=== PATIENT | male | born 1960 | race African-American/Black ===

== ENCOUNTER 2023-08-02 14:42 | Emergency (ER) | payer MEDICAID, OTHER ==
[~2023-08-02] VITALS: Ht 188 cm; Wt 120.6 kg
[2023-08-02 15:20] VITALS: O2SAT 100
[2023-08-02] MEDS: cloNIDine HCL 0.1 MG TAB PO ONE (15:45)
[2023-08-02] MEDS: HYDROcodone-ACET 5/325MG TAB PO ONE (19:53)
[2023-08-02 20:26] LABS: Basophils # (auto) 0 10 ^3/uL (0-0.2); Basophils % (auto) 0.3 % (0.0-2.0); Eosinophils # (auto) 0.2 10 ^3/uL (0-0.8); Eosinophils % (auto) 1.9 % (0.0-7.0); Hematocrit 44.5 % (41.0-53.0); Hemoglobin 14.6 g/dL (13.5-17.5); Lymphocytes # (auto) 2.4 10 ^3/uL (0.4-5.4); Lymphocytes % (auto) 22.1 % (10.0-50.0); Mean Corpuscular Hemoglobin 29.9 pg (28.0-32.0); Mean Corpuscular Hgb Conc. 32.9 g/dL (32.0-36.0); Monocytes # (auto) 0.7 10 ^3/uL (0-1.3); Monocytes % (auto) 6.3 % (0.0-12.0); Neutrophils # (auto) 7.6 10 ^3/uL (1.6-8.6); Neutrophils % (auto) 69.4 % (37.0-80.0); Red Blood Cells 4.89 10^6/uL (4.5-5.90); Red Cell Distribution Width 13.8 % (11.8-14.3)
[2023-08-02 20:44] LABS: Alanine Aminotransferase 12 U/L (7-40); Albumin 4.3 g/dL (3.2-4.8); Alkaline Phosphatase 90 U/L (46-116); Anion Gap 8 (5-15); Aspartate Aminotransferase 10 U/L (13-40); BUN/Creatinine Ratio 9.8 (10.0-20.0); Bilirubin, Total 0.5 mg/dL (0.2-1.0); Blood Urea Nitrogen 9 mg/dL (9-23); Calcium 9.8 mg/dL (8.7-10.4); Carbon Dioxide 23 mmol/L (20-30); Chloride 108 mmol/L (98-107); Glucose 110 mg/dL (74-106); Potassium 3.1 mmol/L (3.5-5.1); Sodium 139 mmol/L (136-145); Total Protein 7.4 g/dL (5.7-8.2)
[2023-08-02] MEDS: MORPHINE SULFATE INJ 2 MG/ml SYRG IM ONE (21:11)
[2023-08-03] MEDS ORDERED: HYDR-4902 PO (00:24)
[2023-08-03] MEDS: POTASSIUM CHL 20 Meq TABLET PO ONE (00:46)
[2023-08-03 00:52] VITALS: BP 132/78; PULSE 89; RESP 22
[2023-08-03] MEDS: HYDROcodone-ACET 5/325MG TAB PO ONE (00:55)
== END 2023-08-03 01:00 | disposition home or self-care (01) ==
LOC: ER 14:42
DX: R07.9 Chest pain, unspecified (principal); M17.11 Unilateral primary osteoarthritis, right knee; G89.29 Other chronic pain; M54.50 Low back pain, unspecified; I10 Essential (primary) hypertension
CPT/HCPCS: 29505; 36415; 71045; 72100; 73562; 80053; 83880; 84484; 85025; 93005; 96372; 99285; J2270

== ENCOUNTER 2023-08-11 08:32 | Emergency (ER) | payer MEDICAID ==
[~2023-08-11] VITALS: Ht 185.4 cm; Wt 119.6 kg
[~2023-08-11 08:32] MED LIST: HYDR-4902 PO
[2023-08-11 09:31] VITALS: BP 161/97; PULSE 64; RESP 16; TEMP 98.2; O2SAT 99
[2023-08-11] MEDS ORDERED: DICL1GEL59 EX (10:01)
[2023-08-11] MEDS ORDERED: TRAM50TA2 PO (10:01)
[2023-08-11] MEDS ORDERED: ACET500T58 PO (10:01)
== END 2023-08-11 10:11 | disposition home or self-care (01) ==
LOC: ER 08:32
DX: M17.11 Unilateral primary osteoarthritis, right knee (principal)

== ENCOUNTER 2023-08-17 07:47 | Emergency (ER) | payer MEDICAID ==
[~2023-08-17] VITALS: Ht 188 cm; Wt 118.8 kg
[~2023-08-17 07:47] MED LIST changes: +ACET500T58 PO; +DICL1GEL59 EX; +TRAM50TA2 PO
[2023-08-17 08:25] VITALS: TEMP 97.6
[2023-08-17] MEDS: HYDROcodone-ACET 5/325MG TAB PO ONE (08:34)
[2023-08-17] MEDS: cloNIDine HCL 0.1 MG TAB PO ONE (08:35)
[2023-08-17 10:12] VITALS: BP 156/89; PULSE 64; RESP 16; O2SAT 100
[2023-08-17] MEDS ORDERED: LISI-706 PO (10:23)
[2023-08-17] MEDS ORDERED: IBUP-1454 PO (10:23)
== END 2023-08-17 10:31 | disposition home or self-care (01) ==
LOC: ER 07:47
DX: M17.11 Unilateral primary osteoarthritis, right knee (principal); I10 Essential (primary) hypertension; G89.29 Other chronic pain; M54.9 Dorsalgia, unspecified; Z79.899 Other long term (current) drug therapy
CPT/HCPCS: 99283; J7040

== ENCOUNTER 2023-08-28 07:54 | Inpatient (IN) | payer MEDICAID ==
[~2023-08-28] VITALS: Ht 187.1 cm; Wt 119.1 kg
[~2023-08-28 07:54] MED LIST changes: +IBUP-1454 PO; +LISI-706 PO
[2023-08-28] MEDS: ASPirin 325 MG TAB PO ONE (08:33)
[2023-08-28] MEDS: NITROGLYCERIN 0.4 MG SL TAB SL ONE (08:36)
[2023-08-28 08:41] LABS: Basophils # (auto) 0 10 ^3/uL (0-0.2); Basophils % (auto) 0.5 % (0.0-2.0); Eosinophils # (auto) 0.1 10 ^3/uL (0-0.8); Eosinophils % (auto) 1.5 % (0.0-7.0); Hematocrit 46.7 % (41.0-53.0); Hemoglobin 15.6 g/dL (13.5-17.5); Lymphocytes # (auto) 2.1 10 ^3/uL (0.4-5.4); Lymphocytes % (auto) 21.7 % (10.0-50.0); Mean Corpuscular Hemoglobin 30.1 pg (28.0-32.0); Mean Corpuscular Hgb Conc. 33.4 g/dL (32.0-36.0); Mean Corpuscular Volume 90.3 fL (80.0-100.0); Monocytes # (auto) 0.5 10 ^3/uL (0-1.3); Monocytes % (auto) 5.3 % (0.0-12.0); Neutrophils # (auto) 6.8 10 ^3/uL (1.6-8.6); Red Blood Cells 5.17 10^6/uL (4.5-5.90); White Blood Cell 9.6 10^3/uL (4.4-10.8)
[2023-08-28 08:56] LABS: Alanine Aminotransferase 15 U/L (7-40); Albumin 4.9 g/dL (3.2-4.8); Alkaline Phosphatase 93 U/L (46-116); Anion Gap 8 (5-15); Aspartate Aminotransferase 13 U/L (13-40); BUN/Creatinine Ratio 11.1 (10.0-20.0); Blood Urea Nitrogen 12 mg/dL (9-23); Calcium 10.4 mg/dL (8.5-10.1); Carbon Dioxide 28 mmol/L (20-30); Chloride 105 mmol/L (98-107); Glucose 113 mg/dL (74-106); Potassium 3.4 mmol/L (3.5-5.1); Sodium 141 mmol/L (136-145)
[2023-08-28 08:57] LABS: Bilirubin, Total 0.6 mg/dL (0.2-1.0); Total Protein 8.2 g/dL (5.7-8.2)
[2023-08-28] MEDS ORDERED: ONDANSETRON HCL 4 MG/2 ML VIAL IV PRN (09:45)
[2023-08-28] MEDS ORDERED: NITROGLYCERIN 0.4 MG SL TAB SL PRN (09:45)
[2023-08-28] MEDS ORDERED: ACETAMINOPHEN 325 MG TAB PO PRN (09:45)
[2023-08-28] MEDS ORDERED: CLOP75TA70 PO (09:46)
[2023-08-28] MEDS ORDERED: ATEN25TA PO (09:46)
[2023-08-28] MEDS ORDERED: LISI10TA34 PO (09:46)
[2023-08-28 09:47] VITALS: PULSE 72; RESP 18; O2SAT 99
[2023-08-28] MEDS: DOCUSATE SOD 100 MG CAP PO SCH (09:50)
[2023-08-28] MEDS: ASPirin 81 mg TAB PO SCH (09:51)
[2023-08-28] MEDS: METOPROLOL TARTRATE 25 MG TAB PO SCH ×2 (09:51→22:00)
[2023-08-28 10:05] LABS: INR 1.03 (0.9-1.15); Prothrombin Time 10.9 sec (9.3-11.8)
[2023-08-28] MEDS: HYDROcodone-ACET 5/325MG TAB PO PRN ×2 (10:43→18:15)
[2023-08-28] MEDS ORDERED: HYDROcodone-ACET 5/325MG TAB PO SCH (14:00)
[2023-08-28] MEDS: MORPHINE SULFATE INJ 2 MG/ml SYRG IV PRN (14:44)
[2023-08-28] MEDS: POTASSIUM EFFERVESENT TAB 25 MEQ PO ONE (15:40)
[2023-08-28 17:00] VITALS: PULSE 69; RESP 16; O2SAT 97
[2023-08-28] MEDS ORDERED: KETOROLAC TROMETH 30 MG/ML 1ML VIAL IV PRN (17:45)
[2023-08-28] MEDS: LORATADINE 10 MG TAB PO SCH (18:04)
[2023-08-28] MEDS ORDERED: ENOXAPARIN SOD 120 MG/0.8 ML SYRINGE SC SCH (22:00)
[2023-08-28] MEDS: ATORVASTATIN 20 MG TAB PO SCH (22:00)
[2023-08-28] MEDS: MELATONIN 5 MG TAB PO PRN (23:31)
[2023-08-28] MEDS: MORPHINE SULFATE 4 MG/ML SYR/VIAL IV PRN (23:32)
[2023-08-29] VITALS (7 sets, daily range): BP systolic 138–154; BP diastolic 85–91; PULSE 62–77; RESP 16–20; TEMP 97.3–98.1; O2SAT 98–100
[2023-08-29] MEDS: IOHEXOL 350 MG/ML 100ML IJ ONE (03:31)
[2023-08-29 05:44] LABS: Basophils # (auto) 0.1 10 ^3/uL (0-0.2); Basophils % (auto) 0.6 % (0.0-2.0); Eosinophils # (auto) 0.3 10 ^3/uL (0-0.8); Hematocrit 43.5 % (41.0-53.0); Hemoglobin 14.6 g/dL (13.5-17.5); Lymphocytes # (auto) 2.7 10 ^3/uL (0.4-5.4); Mean Corpuscular Hemoglobin 29.9 pg (28.0-32.0); Mean Corpuscular Hgb Conc. 33.5 g/dL (32.0-36.0); Mean Corpuscular Volume 89.4 fL (80.0-100.0); Monocytes # (auto) 0.7 10 ^3/uL (0-1.3); Monocytes % (auto) 7.9 % (0.0-12.0); Neutrophils # (auto) 5.3 10 ^3/uL (1.6-8.6); Neutrophils % (auto) 58.5 % (37.0-80.0); Nucleated Red Blood Cells % 0.1 %; Red Blood Cells 4.87 10^6/uL (4.5-5.90); Red Cell Distribution Width 13.3 % (11.8-14.3)
[2023-08-29] MEDS: hydrALAZINE HCL 20 MG/ML VL IV PRN (05:51)
[2023-08-29 06:11] LABS: Alanine Aminotransferase 11 U/L (7-40); Alkaline Phosphatase 82 U/L (46-116); Anion Gap 6 (5-15); Aspartate Aminotransferase 11 U/L (13-40); BUN/Creatinine Ratio 12.4 (10.0-20.0); Blood Urea Nitrogen 13 mg/dL (9-23); Calcium 10.2 mg/dL (8.5-10.1); Carbon Dioxide 28 mmol/L (20-30); Chloride 106 mmol/L (98-107); Glucose 99 mg/dL (74-106); LDL Cholesterol 100 mg/dL (< 100); Potassium 3.8 mmol/L (3.5-5.1); Sodium 140 mmol/L (136-145); Triglycerides 102 mg/dL (< 150)
[2023-08-29 06:12] LABS: Albumin 4.3 g/dL (3.2-4.8); Bilirubin, Total 0.5 mg/dL (0.2-1.0); Cholesterol 146 mg/dL (< 200); HDL Cholesterol 29 mg/dL (40-59); Total Protein 7.2 g/dL (5.7-8.2)
[2023-08-29] MEDS ORDERED: IOHEXOL 350 MG/ML 100ML IJ ONE (08:54)
[2023-08-29] MEDS: LISINOPRIL 5 MG TAB PO SCH (10:14)
[2023-08-29] MEDS: CLOPIDOGREL BISULFATE 75 MG TAB PO SCH (10:14)
[2023-08-29] MEDS: ENOXAPARIN SOD 40 MG/0.4 ML SYRINGE SC SCH (10:16)
[2023-08-29] MEDS: MELATONIN 5 MG TAB PO PRN (21:47)
[2023-08-30] VITALS (15 sets, daily range): BP systolic 130–171; BP diastolic 76–107; PULSE 55–85; RESP 11–20; TEMP 97.3–98.8; O2SAT 95–100
[2023-08-30 07:12] LABS: Basophils # (auto) 0.1 10 ^3/uL (0-0.2); Basophils % (auto) 0.7 % (0.0-2.0); Eosinophils # (auto) 0.2 10 ^3/uL (0-0.8); Eosinophils % (auto) 2.9 % (0.0-7.0); Hematocrit 44.6 % (41.0-53.0); Hemoglobin 14.8 g/dL (13.5-17.5); Lymphocytes # (auto) 1.9 10 ^3/uL (0.4-5.4); Lymphocytes % (auto) 23.6 % (10.0-50.0); Mean Corpuscular Hemoglobin 29.8 pg (28.0-32.0); Mean Corpuscular Hgb Conc. 33.2 g/dL (32.0-36.0); Mean Corpuscular Volume 89.9 fL (80.0-100.0); Monocytes # (auto) 0.6 10 ^3/uL (0-1.3); Monocytes % (auto) 7.4 % (0.0-12.0); Neutrophils # (auto) 5.4 10 ^3/uL (1.6-8.6); Neutrophils % (auto) 65.4 % (37.0-80.0); Nucleated Red Blood Cells % 0.1 %; Red Blood Cells 4.96 10^6/uL (4.5-5.90); Red Cell Distribution Width 13.1 % (11.8-14.3); White Blood Cell 8.2 10^3/uL (4.4-10.8)
[2023-08-30 07:28] LABS: Chloride 107 mmol/L (98-107); Potassium 3.9 mmol/L (3.5-5.1); Sodium 139 mmol/L (136-145)
[2023-08-30 07:29] LABS: Anion Gap 5 (5-15); Calcium 9.7 mg/dL (8.7-10.4); Carbon Dioxide 27 mmol/L (20-30); INR 1.04 (0.9-1.15); Partial Thromboplastin Time 25.8 SEC (24.5-34.5)
[2023-08-30 07:34] LABS: BUN/Creatinine Ratio 10.5 (10.0-20.0); Blood Urea Nitrogen 10 mg/dL (9-23); Glucose 107 mg/dL (74-106)
[2023-08-30] MEDS: MORPHINE SULFATE 4 MG/ML SYR/VIAL IV PRN (09:02)
[2023-08-30] MEDS ORDERED: SIMV40TA18 PO (13:24)
[2023-08-30] MEDS ORDERED: NABU-72 PO (13:24)
[2023-08-30] MEDS ORDERED: HYDR-4902 PO (13:24)
[2023-08-30] MEDS: IODIXANOL 320MG/ML 100ML BTL IV ONE (13:59)
[2023-08-30] MEDS: LIDOCAINE 2%HCL (LOCAL ANESTH.) INJ 20ML MDV ONE (13:59)
[2023-08-30] MEDS: ANGIOMAX 250 MG VIAL IV ONE (14:11)
[2023-08-30] MEDS: VERAPAMIL 2.5MG/ML INJ 2ML VIAL IV ONE (14:11)
[2023-08-30] MEDS: fentaNYL CITRATE 100 MCG/2 ML VL ONE (14:11)
[2023-08-30] MEDS: HEPARIN SODIUM (PORCINE) 5000 UNITS/ML 1ML VIAL ONE (14:11)
[2023-08-30] MEDS: MIDAZOLAM HCL 2MG/2ML 2ml VIAL (1mg/ml) ONE (14:12)
[2023-08-30] MEDS: SODIUM CHL 0.9% 0 ML ONE (14:12)
[2023-08-31] VITALS (8 sets, daily range): BP systolic 111–179; BP diastolic 60–94; PULSE 61–70; RESP 14–18; TEMP 36.8; O2SAT 95–99
[2023-08-31] MEDS ORDERED: ASPI-325 PO (11:04)
[2023-08-31] MEDS ORDERED: MET25T PO (11:04)
[2023-08-31] MEDS ORDERED: HYDR-4902 PO (11:40)
[2023-08-31] MEDS ORDERED: FLUT1SPR5 (11:40)
[2023-08-31] MEDS: amLODIPine BESYLATE 5 MG TAB PO ONE (15:34)
[2023-08-31] MEDS: CARVEDILOL 12.5 MG TAB PO SCH (21:22)
[2023-09-01 01:00] VITALS: BP 119/70; PULSE 69; RESP 17; TEMP 98.3; O2SAT 98
[2023-09-01 05:00] VITALS: BP 116/89; PULSE 77; RESP 18; TEMP 98.1; O2SAT 95
[2023-09-01 08:30] VITALS: PULSE 72; O2SAT 95
[2023-09-01 09:00] VITALS: BP_SYST 164; BP_SYST 165; BP_DIAS 99; PULSE 67; PULSE 76; RESP 16; RESP 18; TEMP 98.3; O2SAT 96
[2023-09-01] MEDS ORDERED: AML5T PO (10:33)
[2023-09-01] MEDS ORDERED: CARV-216 PO (10:44)
[2023-09-01] MEDS: amLODIPine BESYLATE 5 MG TAB PO ONE (10:54)
== END 2023-09-01 12:00 | disposition home or self-care (01) | DRG 192 ==
LOC: ER 07:54 → TELE 12:28 → TELE-EAST 08-29 06:28
PROVIDERS: ADMIT Nurse Practitioner Family; ATTEND Internal Medicine
PROC: 4A023N7 Measurement of Cardiac Sampling and Pressure, Left Heart, Percutaneous Approach (ICD-10-PCS; principal; 2023-08-30)
PROC: B211YZZ Fluoroscopy of Multiple Coronary Arteries using Other Contrast (ICD-10-PCS; 2023-08-30)
DX: T82.855A Stenosis of coronary artery stent, initial encounter (principal); E66.9 Obesity, unspecified; I16.0 Hypertensive urgency; E87.6 Hypokalemia; E78.5 Hyperlipidemia, unspecified; Y83.1 Surgical operation with implant of artificial internal device as the cause of abnormal reaction of the patient, or of later complication, without mention of misadventure at the time of the procedure; G89.29 Other chronic pain; I20.89 Other forms of angina pectoris; I25.2 Old myocardial infarction; Z95.5 Presence of coronary angioplasty implant and graft; Z68.34 Body mass index [BMI] 34.0-34.9, adult
CPT/HCPCS: 36415; 70450; 71045; 71275; 80048; 80053; 80061; 83735; 84100; 84484; 85025; 85379; 85610; 85730; 93005; 93306; 93458; 96372; 96374; 99152; G0378; J2250; Q9967

== ENCOUNTER 2023-09-10 09:39 | Emergency (ER) | payer MEDICAID ==
[~2023-09-10] VITALS: Ht 188 cm; Wt 113.6 kg
[~2023-09-10 09:39] MED LIST changes: +AML5T PO; +ASPI-325 PO; +ATEN25TA PO; +CARV-216 PO; +CLOP75TA70 PO; +FLUT1SPR5; +NABU-72 PO; +SIMV40TA18 PO
[2023-09-10 10:14] LABS: Basophils # (auto) 0 10 ^3/uL (0-0.2); Basophils % (auto) 0.4 % (0.0-2.0); Eosinophils # (auto) 0.1 10 ^3/uL (0-0.8); Eosinophils % (auto) 0.7 % (0.0-7.0); Hematocrit 46.3 % (41.0-53.0); Hemoglobin 15.5 g/dL (13.5-17.5); Lymphocytes # (auto) 1.9 10 ^3/uL (0.4-5.4); Lymphocytes % (auto) 18.2 % (10.0-50.0); Mean Corpuscular Hemoglobin 30.2 pg (28.0-32.0); Mean Corpuscular Hgb Conc. 33.5 g/dL (32.0-36.0); Monocytes # (auto) 0.6 10 ^3/uL (0-1.3); Monocytes % (auto) 6.1 % (0.0-12.0); Neutrophils # (auto) 7.9 10 ^3/uL (1.6-8.6); Neutrophils % (auto) 74.6 % (37.0-80.0); Nucleated Red Blood Cells % 0.1 %; Red Blood Cells 5.14 10^6/uL (4.5-5.90); White Blood Cell 10.6 10^3/uL (4.4-10.8)
[2023-09-10 10:18] LABS: INR 1.06 (0.9-1.15); Partial Thromboplastin Time 27.1 SEC (24.5-34.5); Prothrombin Time 11.2 sec (9.3-11.8)
[2023-09-10 10:23] LABS: Alanine Aminotransferase 12 U/L (7-40); Albumin 4.9 g/dL (3.2-4.8); Alkaline Phosphatase 103 U/L (46-116); Anion Gap 6 (5-15); Aspartate Aminotransferase 10 U/L (13-40); BUN/Creatinine Ratio 9.4 (10.0-20.0); Bilirubin, Total 0.6 mg/dL (0.2-1.0); Blood Urea Nitrogen 10 mg/dL (9-23); Calcium 10.5 mg/dL (8.5-10.1); Carbon Dioxide 28 mmol/L (20-30); Chloride 104 mmol/L (98-107); Glucose 128 mg/dL (74-106); Magnesium 1.8 mg/dL (1.6-2.6); Sodium 138 mmol/L (136-145); Total Protein 8.2 g/dL (5.7-8.2)
[2023-09-10 11:11] VITALS: BP 107/77; PULSE 73; RESP 17; TEMP 98.7; O2SAT 96
[2023-09-10] MEDS: HYDROcodone-ACET 10/325MG TAB PO ONE (11:53)
== END 2023-09-10 12:05 | disposition home or self-care (01) ==
LOC: ER 09:39
DX: R07.89 Other chest pain (principal); G89.4 Chronic pain syndrome; I10 Essential (primary) hypertension; E78.5 Hyperlipidemia, unspecified; I25.2 Old myocardial infarction; Z98.890 Other specified postprocedural states; Z79.899 Other long term (current) drug therapy
CPT/HCPCS: 36415; 71045; 80053; 83735; 83880; 84484; 85025; 85610; 85730; 93005

== ENCOUNTER 2023-09-13 06:44 | Inpatient (IN) | payer MEDICAID ==
[~2023-09-13] VITALS: Ht 188 cm; Wt 109.5 kg
[2023-09-13 07:08] LABS: Basophils # (auto) 0 10 ^3/uL (0-0.2); Basophils % (auto) 0.4 % (0.0-2.0); Eosinophils # (auto) 0.2 10 ^3/uL (0-0.8); Eosinophils % (auto) 1.7 % (0.0-7.0); Hematocrit 44.8 % (41.0-53.0); Hemoglobin 15.3 g/dL (13.5-17.5); Lymphocytes # (auto) 2.1 10 ^3/uL (0.4-5.4); Lymphocytes % (auto) 22.7 % (10.0-50.0); Mean Corpuscular Hemoglobin 30.8 pg (28.0-32.0); Mean Corpuscular Hgb Conc. 34.2 g/dL (32.0-36.0); Mean Corpuscular Volume 90.3 fL (80.0-100.0); Monocytes # (auto) 0.7 10 ^3/uL (0-1.3); Monocytes % (auto) 7.4 % (0.0-12.0); Neutrophils # (auto) 6.2 10 ^3/uL (1.6-8.6); Neutrophils % (auto) 67.8 % (37.0-80.0); Red Blood Cells 4.96 10^6/uL (4.5-5.90); Red Cell Distribution Width 13.4 % (11.8-14.3); White Blood Cell 9.1 10^3/uL (4.4-10.8)
[2023-09-13 07:21] LABS: Alanine Aminotransferase < 9 U/L (7-40); Albumin 4.8 g/dL (3.2-4.8); Alkaline Phosphatase 93 U/L (46-116); Anion Gap 7 (5-15); Aspartate Aminotransferase < 8 U/L (13-40); BUN/Creatinine Ratio 8.3 (10.0-20.0); Bilirubin, Total 0.6 mg/dL (0.2-1.0); Blood Urea Nitrogen 9 mg/dL (9-23); Calcium 10.7 mg/dL (8.7-10.4); Carbon Dioxide 25 mmol/L (20-30); Chloride 105 mmol/L (98-107); Glucose 118 mg/dL (74-106); Magnesium 1.9 mg/dL (1.6-2.6); Potassium 3.6 mmol/L (3.5-5.1); Sodium 137 mmol/L (136-145); Total Protein 8.2 g/dL (5.7-8.2)
[2023-09-13] MEDS: ASPirin 81 mg TAB PO ONE (07:33)
[2023-09-13] MEDS: NITROGLYCERIN 0.4 MG SL TAB SL ONE (07:33)
[2023-09-13 09:09] VITALS: PULSE 67; RESP 16; O2SAT 97
[2023-09-13] MEDS: HYDROcodone-ACET 5/325MG TAB PO ONE ×2 (09:38→14:15)
[2023-09-13] MEDS: ONDANSETRON HCL 4 MG/2 ML VIAL IV ONE (09:38)
[2023-09-13] MEDS ORDERED: NITROGLYCERIN 0.4 MG SL TAB SL PRN (11:00)
[2023-09-13] MEDS ORDERED: MORPHINE SULFATE INJ 2 MG/ml SYRG IV PRN (11:00)
[2023-09-13] MEDS ORDERED: ACETAMINOPHEN 325 MG TAB PO PRN (11:00)
[2023-09-13] MEDS: MAGNESIUM SULFATE 1GM/100ML 100 ML IV ONE (11:38)
[2023-09-13] MEDS: CLOPIDOGREL BISULFATE 75 MG TAB PO ONE (11:39)
[2023-09-13] MEDS: COLCHICINE 0.6 MG CAP PO ONE (11:40)
[2023-09-13] MEDS: MORPHINE SULFATE INJ 2 MG/ml SYRG IV PRN (11:40)
[2023-09-13 11:47] LABS: Erythrocyte Sedimentation Rate 14 mm/hr (0-20)
[2023-09-13 12:12] LABS: Urine Bacteria None Seen /hpf (None Seen); Urine WBC None Seen /hpf (0 - 3)
[2023-09-13 12:17] LABS: Urine Blood TRACE /uL (Negative); Urine Clarity Clear (Clear); Urine Color Light-Yellow (Yellow); Urine Protein, UAD Negative (Negative); Urine Specific Gravity 1.015 (1.001-1.035); Urine Urobilinogen Normal (Negative); Urine pH 5.5 (5.0-9.0)
[2023-09-13 12:34] LABS: Amphetamine Screen, Urine Neg (NEGATIVE); Barbiturate Scree,Urine Neg (NEGATIVE); Benzodiazephine Screen, Urine Neg (NEGATIVE); Cannabinoid Screen, Urine Neg (NEGATIVE); Cocaine Screen, Urine Neg (NEGATIVE); Opiate Scree,Urine Pos (NEGATIVE); Phencyclidine Screen, Urine Neg (NEGATIVE)
[2023-09-13] MEDS: hydrALAZINE HCL 20 MG/ML VL IV PRN (17:46)
[2023-09-13 18:13] VITALS: BP 125/77; PULSE 62; RESP 18; TEMP 97.9; O2SAT 90
[2023-09-13 20:00] VITALS: PULSE 74; RESP 18; O2SAT 98
[2023-09-13 21:00] VITALS: BP 130/80; PULSE 74; RESP 18; TEMP 98; O2SAT 98
[2023-09-13] MEDS: ATORVASTATIN 20 MG TAB PO SCH (21:57)
[2023-09-13] MEDS: CARVEDILOL 12.5 MG TAB PO SCH (21:58)
[2023-09-13] MEDS: COLCHICINE 0.6 MG CAP PO SCH (22:00)
[2023-09-13] MEDS: HYDROcodone-ACET 7.5/325MG TAB PO ONE (23:18)
[2023-09-14] VITALS (8 sets, daily range): BP systolic 113–156; BP diastolic 61–94; PULSE 58–68; RESP 17–20; TEMP 97.8–98.4; O2SAT 94–100
[2023-09-14 06:40] LABS: Basophils # (auto) 0 10 ^3/uL (0-0.2); Basophils % (auto) 0.4 % (0.0-2.0); Eosinophils # (auto) 0.2 10 ^3/uL (0-0.8); Eosinophils % (auto) 2.3 % (0.0-7.0); Hemoglobin 14.8 g/dL (13.5-17.5); Lymphocytes # (auto) 2.5 10 ^3/uL (0.4-5.4); Lymphocytes % (auto) 25.5 % (10.0-50.0); Mean Corpuscular Hemoglobin 30.2 pg (28.0-32.0); Mean Corpuscular Hgb Conc. 33.5 g/dL (32.0-36.0); Monocytes # (auto) 0.8 10 ^3/uL (0-1.3); Monocytes % (auto) 8.3 % (0.0-12.0); Neutrophils # (auto) 6.3 10 ^3/uL (1.6-8.6); Neutrophils % (auto) 63.5 % (37.0-80.0); Red Blood Cells 4.89 10^6/uL (4.5-5.90); White Blood Cell 9.9 10^3/uL (4.4-10.8)
[2023-09-14 06:48] LABS: Anion Gap 7 (5-15); Carbon Dioxide 24 mmol/L (20-30); Chloride 107 mmol/L (98-107); Potassium 3.8 mmol/L (3.5-5.1); Sodium 138 mmol/L (136-145)
[2023-09-14 06:49] LABS: Calcium 10.3 mg/dL (8.7-10.4)
[2023-09-14 06:54] LABS: BUN/Creatinine Ratio 13.2 (10.0-20.0); Blood Urea Nitrogen 12 mg/dL (9-23); Glucose 107 mg/dL (74-106)
[2023-09-14 06:55] LABS: Magnesium 2.2 mg/dL (1.6-2.6)
[2023-09-14] MEDS ORDERED: HYDR-4902 PO (08:22)
[2023-09-14] MEDS: ENOXAPARIN SOD 40 MG/0.4 ML SYRINGE SC SCH (08:58)
[2023-09-14] MEDS: CLOPIDOGREL BISULFATE 75 MG TAB PO SCH (08:59)
[2023-09-14] MEDS: ASPirin-EC 81 mg tab PO SCH (08:59)
[2023-09-14] MEDS: amLODIPine BESYLATE 5 MG TAB PO SCH (09:01)
[2023-09-14] MEDS: HYDROcodone-ACET 5/325MG TAB PO PRN (12:45)
[2023-09-14] MEDS: ONDANSETRON HCL 4 MG/2 ML VIAL IV PRN (12:46)
[2023-09-14] MEDS: ISOSORBIDE MONONITRATE 20 MG TAB PO SCH (21:56)
[2023-09-14] MEDS: VALSARTAN 80 MG TAB PO ONE (21:56)
[2023-09-15 01:00] VITALS: BP 128/75; PULSE 66; RESP 18; TEMP 98.2; O2SAT 99
[2023-09-15 05:00] VITALS: BP 114/65; PULSE 60; RESP 18; TEMP 98.4; O2SAT 97
[2023-09-15 07:31] LABS: INR 1.03 (0.9-1.15); Partial Thromboplastin Time 25.6 SEC (24.5-34.5); Prothrombin Time 10.9 sec (9.3-11.8)
[2023-09-15 07:34] LABS: Alkaline Phosphatase 89 U/L (46-116); Anion Gap 6 (5-15); Calcium 10.3 mg/dL (8.5-10.1); Carbon Dioxide 29 mmol/L (20-30); Chloride 105 mmol/L (98-107); Glucose 114 mg/dL (74-106); Potassium 4.2 mmol/L (3.5-5.1); Sodium 140 mmol/L (136-145); Total Protein 7.5 g/dL (5.7-8.2)
[2023-09-15 07:35] LABS: BUN/Creatinine Ratio 10.9 (10.0-20.0); Blood Urea Nitrogen 11 mg/dL (9-23); LDL Cholesterol 113 mg/dL (< 100); Magnesium 2.1 mg/dL (1.6-2.6); Triglycerides 102 mg/dL (< 150)
[2023-09-15 07:36] LABS: Albumin 4.5 g/dL (3.2-4.8); Aspartate Aminotransferase 9 U/L (13-40); Cholesterol 158 mg/dL (< 200); HDL Cholesterol 27 mg/dL (40-59)
[2023-09-15 07:37] LABS: Bilirubin, Total 0.5 mg/dL (0.2-1.0); Phosphorus 4.1 mg/dL (2.4-5.1)
[2023-09-15 07:38] LABS: Alanine Aminotransferase < 9 U/L (7-40)
[2023-09-15 07:47] LABS: Basophils # (auto) 0 10 ^3/uL (0-0.2); Basophils % (auto) 0.5 % (0.0-2.0); Eosinophils # (auto) 0.2 10 ^3/uL (0-0.8); Eosinophils % (auto) 2.2 % (0.0-7.0); Hemoglobin 14.9 g/dL (13.5-17.5); Lymphocytes % (auto) 22.7 % (10.0-50.0); Mean Corpuscular Hemoglobin 30.5 pg (28.0-32.0); Mean Corpuscular Hgb Conc. 33.8 g/dL (32.0-36.0); Mean Corpuscular Volume 90.3 fL (80.0-100.0); Monocytes # (auto) 0.8 10 ^3/uL (0-1.3); Neutrophils # (auto) 5.7 10 ^3/uL (1.6-8.6); Neutrophils % (auto) 65.6 % (37.0-80.0); Nucleated Red Blood Cells % 0.2 %; Red Blood Cells 4.88 10^6/uL (4.5-5.90); Red Cell Distribution Width 13.4 % (11.8-14.3); White Blood Cell 8.7 10^3/uL (4.4-10.8)
[2023-09-15 08:00] VITALS: PULSE 58
[2023-09-15 09:00] VITALS: BP 140/74; PULSE 59; RESP 20; TEMP 97.9; O2SAT 99
[2023-09-15] MEDS: ERGOCALCIFEROL 50,000 UNIT(1.25MG) CAP PO SCH (09:40)
[2023-09-15] MEDS: VALSARTAN 80 MG TAB PO SCH (09:40)
[2023-09-15] MEDS ORDERED: ISO20T PO (10:55)
[2023-09-15] MEDS ORDERED: ERGO1CAP23 PO (10:55)
[2023-09-15] MEDS ORDERED: VALS1TAB57 PO (10:55)
[2023-09-15] MEDS ORDERED: ATOR20TA50 PO (10:55)
[2023-09-15] MEDS ORDERED: IPRATROPIUM BROM 0.5 MG/2.5ML INH SOL NEB SCH (12:00)
[2023-09-15] MEDS ORDERED: LEVALBUTEROL HCL 1.25 MG/3 ML NEB NEB SCH (12:00)
[2023-09-15 13:00] VITALS: BP_SYST 117; BP_SYST 132; BP_DIAS 86; BP_DIAS 89; PULSE 76; RESP 20; TEMP 97.8; O2SAT 98
[2023-09-15] MEDS ORDERED: ATORVASTATIN 20 MG TAB PO SCH (22:00)
== END 2023-09-15 14:16 | disposition home or self-care (01) | DRG 199 ==
LOC: ER 06:44 → TELE 11:03 → TELE-WESTW 17:26
PROVIDERS: ADMIT Internal Medicine Pulmonary Disease; ATTEND Internal Medicine Pulmonary Disease
DX: I16.0 Hypertensive urgency (principal); E66.9 Obesity, unspecified; I25.10 Atherosclerotic heart disease of native coronary artery without angina pectoris; E78.5 Hyperlipidemia, unspecified; G47.33 Obstructive sleep apnea (adult) (pediatric); G89.29 Other chronic pain; F11.10 Opioid abuse, uncomplicated; Z98.61 Coronary angioplasty status; I25.2 Old myocardial infarction; Z68.31 Body mass index [BMI] 31.0-31.9, adult; Z82.49 Family history of ischemic heart disease and other diseases of the circulatory system; Z79.899 Other long term (current) drug therapy
CPT/HCPCS: 36415; 71045; 80048; 80053; 80061; 80307; 81001; 82306; 82607; 83036; 83735; 83880; 84100; 84443; 84484; 85025; 85610; 85652; 85730; 87081; 93005; 96365; G0378; J2405

== ENCOUNTER 2023-09-29 08:10 | Inpatient (IN) | payer MEDICAID, OTHER ==
[~2023-09-29] VITALS: Ht 188 cm; Wt 115.3 kg
[~2023-09-29 08:10] MED LIST changes: -ATEN25TA PO; +ATOR20TA50 PO; -DICL1GEL59 EX; +ERGO1CAP23 PO; -IBUP-1454 PO; +ISO20T PO; -LISI-706 PO; +VALS1TAB57 PO
[2023-09-29 09:05] LABS: Basophils # (auto) 0.1 10 ^3/uL (0-0.2); Basophils % (auto) 0.5 % (0.0-2.0); Eosinophils # (auto) 0.1 10 ^3/uL (0-0.8); Eosinophils % (auto) 0.7 % (0.0-7.0); Hematocrit 43.7 % (41.0-53.0); Hemoglobin 14.4 g/dL (13.5-17.5); Lymphocytes # (auto) 1.8 10 ^3/uL (0.4-5.4); Lymphocytes % (auto) 15.4 % (10.0-50.0); Mean Corpuscular Hgb Conc. 32.9 g/dL (32.0-36.0); Mean Corpuscular Volume 91.1 fL (80.0-100.0); Monocytes # (auto) 0.6 10 ^3/uL (0-1.3); Monocytes % (auto) 5.2 % (0.0-12.0); Neutrophils # (auto) 8.9 10 ^3/uL (1.6-8.6); Neutrophils % (auto) 78.2 % (37.0-80.0); Nucleated Red Blood Cells % 0.1 %; Red Cell Distribution Width 13.4 % (11.8-14.3); White Blood Cell 11.4 10^3/uL (4.4-10.8)
[2023-09-29 09:07] VITALS: PULSE 67; RESP 12; O2SAT 97
[2023-09-29 09:29] LABS: Albumin 4.5 g/dL (3.2-4.8); Alkaline Phosphatase 82 U/L (46-116); Anion Gap 12 (5-15); Aspartate Aminotransferase < 8 U/L (13-40); BUN/Creatinine Ratio 9.3 (10.0-20.0); Bilirubin, Total 0.4 mg/dL (0.2-1.0); Blood Urea Nitrogen 10 mg/dL (9-23); Calcium 10.1 mg/dL (8.7-10.4); Carbon Dioxide 23 mmol/L (20-30); Chloride 107 mmol/L (98-107); Glucose 140 mg/dL (74-106); Potassium 3.1 mmol/L (3.5-5.1); Sodium 142 mmol/L (136-145); Total Protein 7.7 g/dL (5.7-8.2)
[2023-09-29 09:33] LABS: Alanine Aminotransferase < 9 U/L (7-40)
[2023-09-29] MEDS: ONDANSETRON HCL 4 MG/2 ML VIAL IV ONE (12:32)
[2023-09-29] MEDS: MORPHINE SULFATE INJ 2 MG/ml SYRG IV ONE (12:32)
[2023-09-29] MEDS ORDERED: ACETAMINOPHEN 325 MG TAB PO PRN (13:15)
[2023-09-29] MEDS ORDERED: ONDANSETRON HCL 4 MG/2 ML VIAL IV PRN (13:15)
[2023-09-29] MEDS ORDERED: NITROGLYCERIN 0.4 MG SL TAB SL PRN ×2 (13:15→14:00)
[2023-09-29] MEDS ORDERED: MORPHINE SULFATE 4 MG/ML SYR/VIAL IV PRN (13:15)
[2023-09-29 13:53] LABS: INR 1.05 (0.9-1.15); Prothrombin Time 11.1 sec (9.3-11.8)
[2023-09-29 13:57] LABS: Urine Bacteria FEW /hpf (None Seen); Urine Blood 1+ /uL (Negative); Urine Clarity Clear (Clear); Urine Color Light-Yellow (Yellow); Urine Mucus FEW (None Seen); Urine Protein, UAD Negative (Negative); Urine Specific Gravity 1.019 (1.001-1.035); Urine Urobilinogen Normal (Negative); Urine WBC 1 /hpf (0 - 3); Urine pH 5.5 (5.0-9.0)
[2023-09-29 16:37] LABS: Amphetamine Screen, Urine Neg (NEGATIVE); Barbiturate Scree,Urine Neg (NEGATIVE); Benzodiazephine Screen, Urine Neg (NEGATIVE); Cannabinoid Screen, Urine Neg (NEGATIVE); Cocaine Screen, Urine Neg (NEGATIVE); Opiate Scree,Urine Pos (NEGATIVE); Phencyclidine Screen, Urine Neg (NEGATIVE)
[2023-09-29] MEDS: HYDROcodone-ACET 5/325MG TAB PO PRN (17:49)
[2023-09-29 20:23] VITALS: PULSE 67; RESP 12; O2SAT 97
[2023-09-29 21:49] VITALS: BP 148/88; PULSE 50; RESP 18; TEMP 98; O2SAT 99
[2023-09-29] MEDS: CARVEDILOL 12.5 MG TAB PO SCH (22:00)
[2023-09-29] MEDS: ATORVASTATIN 20 MG TAB PO SCH (22:39)
[2023-09-29] MEDS: ISOSORBIDE MONONITRATE 20 MG TAB PO SCH (22:39)
[2023-09-29 22:41] VITALS: PULSE 50; RESP 18; O2SAT 99
[2023-09-29] MEDS: TEMAZEPAM 15 MG CAP PO ONE (23:07)
[2023-09-30] VITALS (8 sets, daily range): BP systolic 109–136; BP diastolic 56–80; PULSE 48–75; RESP 18–19; TEMP 97–98.2; O2SAT 94–98
[2023-09-30 06:58] LABS: Alkaline Phosphatase 70 U/L (46-116); Anion Gap 6 (5-15); BUN/Creatinine Ratio 11.2 (10.0-20.0); Blood Urea Nitrogen 10 mg/dL (9-23); Calcium 9.6 mg/dL (8.5-10.1); Carbon Dioxide 26 mmol/L (20-30); Chloride 108 mmol/L (98-107); Glucose 107 mg/dL (74-106); LDL Cholesterol 95 mg/dL (< 100); Potassium 3.5 mmol/L (3.5-5.1); Sodium 140 mmol/L (136-145); Triglycerides 95 mg/dL (< 150)
[2023-09-30 06:59] LABS: Albumin 3.8 g/dL (3.2-4.8); Aspartate Aminotransferase < 8 U/L (13-40); Bilirubin, Total 0.3 mg/dL (0.2-1.0); Cholesterol 130 mg/dL (< 200); HDL Cholesterol 27 mg/dL (40-59); Total Protein 6.2 g/dL (5.7-8.2)
[2023-09-30 07:02] LABS: Alanine Aminotransferase < 9 U/L (7-40)
[2023-09-30 07:07] LABS: Basophils # (auto) 0.1 10 ^3/uL (0-0.2); Basophils % (auto) 0.6 % (0.0-2.0); Eosinophils # (auto) 0.2 10 ^3/uL (0-0.8); Eosinophils % (auto) 2.3 % (0.0-7.0); Hematocrit 37.6 % (41.0-53.0); Hemoglobin 12.8 g/dL (13.5-17.5); Lymphocytes % (auto) 23.3 % (10.0-50.0); Mean Corpuscular Hemoglobin 30.9 pg (28.0-32.0); Mean Corpuscular Hgb Conc. 34.1 g/dL (32.0-36.0); Mean Corpuscular Volume 90.7 fL (80.0-100.0); Monocytes # (auto) 0.7 10 ^3/uL (0-1.3); Monocytes % (auto) 7.9 % (0.0-12.0); Neutrophils # (auto) 5.5 10 ^3/uL (1.6-8.6); Neutrophils % (auto) 65.9 % (37.0-80.0); Red Blood Cells 4.15 10^6/uL (4.5-5.90); Red Cell Distribution Width 13.3 % (11.8-14.3); White Blood Cell 8.4 10^3/uL (4.4-10.8)
[2023-09-30] MEDS: ASPirin-EC 81 mg tab PO SCH (08:39)
[2023-09-30] MEDS: CLOPIDOGREL BISULFATE 75 MG TAB PO SCH (08:40)
[2023-09-30] MEDS: DOCUSATE SOD 100 MG CAP PO SCH (08:40)
[2023-09-30] MEDS: MORPHINE SULFATE INJ 2 MG/ml SYRG IV PRN (08:55)
[2023-09-30] MEDS ORDERED: amLODIPine BESYLATE 5 MG TAB PO SCH (10:00)
[2023-09-30] MEDS: HYDROcodone-ACET 5/325MG TAB PO PRN (13:42)
[2023-09-30] MEDS: RANOLAZINE ER 500 MG TAB PO SCH (21:16)
[2023-10-01 05:00] VITALS: BP 166/101; PULSE 62; RESP 18; TEMP 97.7; O2SAT 99
[2023-10-01] MEDS: hydrALAZINE HCL 20 MG/ML VL IV PRN (05:17)
[2023-10-01 05:47] VITALS: BP 155/90
[2023-10-01 08:00] VITALS: PULSE 68; RESP 18; O2SAT 99
[2023-10-01 09:00] VITALS: BP 143/89; PULSE 68; RESP 18; TEMP 97.5; O2SAT 99
[2023-10-01] MEDS: ACETAMINOPHEN 325 MG TAB PO PRN (09:02)
[2023-10-01] MEDS ORDERED: RANO500T3 PO (10:06)
[2023-10-01 11:01] VITALS: BP 143/89; PULSE 68; RESP 18; TEMP 97.5; O2SAT 99
== END 2023-10-01 11:47 | disposition home or self-care (01) | DRG 861 ==
LOC: ER 08:10 → TELE-EAST 14:02 → TELE 14:02 → TELE-EAST 21:49
PROVIDERS: ADMIT Nurse Practitioner Family; ATTEND Nurse Practitioner Acute Care
DX: Z76.5 Malingerer [conscious simulation] (principal); D72.829 Elevated white blood cell count, unspecified; R07.89 Other chest pain; I25.118 Atherosclerotic heart disease of native coronary artery with other forms of angina pectoris; E66.9 Obesity, unspecified; E78.5 Hyperlipidemia, unspecified; E87.6 Hypokalemia; G43.909 Migraine, unspecified, not intractable, without status migrainosus; G89.4 Chronic pain syndrome; I10 Essential (primary) hypertension; M47.26 Other spondylosis with radiculopathy, lumbar region; M54.30 Sciatica, unspecified side; I16.0 Hypertensive urgency; F11.10 Opioid abuse, uncomplicated; R00.1 Bradycardia, unspecified; Z79.891 Long term (current) use of opiate analgesic; Z79.899 Other long term (current) drug therapy; Z79.82 Long term (current) use of aspirin; Z95.5 Presence of coronary angioplasty implant and graft; Z82.49 Family history of ischemic heart disease and other diseases of the circulatory system; Z68.32 Body mass index [BMI] 32.0-32.9, adult
CPT/HCPCS: 36415; 70450; 71045; 80053; 80061; 80307; 81001; 83735; 84484; 85025; 85610; 87081; 93005; 96374; 96375; G0378; J2405

== ENCOUNTER 2023-11-15 07:24 | Inpatient (IN) | payer OTHER ==
[~2023-11-15] VITALS: Ht 188 cm; Wt 115.4 kg
[~2023-11-15 07:24] MED LIST changes: -HYDR-4902 PO; +RANO500T3 PO; -TRAM50TA2 PO
[2023-11-15 07:58] LABS: Basophils # (auto) 0.1 10 ^3/uL (0-0.2); Basophils % (auto) 0.6 % (0.0-2.0); Eosinophils # (auto) 0.2 10 ^3/uL (0-0.8); Hematocrit 42.2 % (41.0-53.0); Hemoglobin 14.1 g/dL (13.5-17.5); Lymphocytes % (auto) 22.3 % (10.0-50.0); Mean Corpuscular Hemoglobin 30.5 pg (28.0-32.0); Mean Corpuscular Hgb Conc. 33.3 g/dL (32.0-36.0); Mean Corpuscular Volume 91.6 fL (80.0-100.0); Monocytes # (auto) 0.7 10 ^3/uL (0-1.3); Monocytes % (auto) 7.5 % (0.0-12.0); Neutrophils % (auto) 67.6 % (37.0-80.0); Nucleated Red Blood Cells % 0.1 %; White Blood Cell 8.8 10^3/uL (4.4-10.8)
[2023-11-15 08:00] VITALS: PULSE 65; RESP 14; O2SAT 99
[2023-11-15] MEDS: MAALOX PLUS or MAALOX 30 ML PO ONE (08:10)
[2023-11-15 08:12] LABS: Alanine Aminotransferase 12 U/L (7-40); Albumin 4.2 g/dL (3.2-4.8); Alkaline Phosphatase 85 U/L (46-116); Anion Gap 6 (5-15); Aspartate Aminotransferase < 8 U/L (13-40); Bilirubin, Total 0.6 mg/dL (0.2-1.0); Blood Urea Nitrogen 13 mg/dL (9-23); Calcium 9.7 mg/dL (8.7-10.4); Carbon Dioxide 28 mmol/L (20-30); Chloride 106 mmol/L (98-107); Glucose 103 mg/dL (74-106); Magnesium 1.7 mg/dL (1.6-2.6); Potassium 3.8 mmol/L (3.5-5.1); Sodium 140 mmol/L (136-145); Total Protein 6.9 g/dL (5.7-8.2)
[2023-11-15] MEDS: FAMOTIDINE 20 MG TAB PO ONE (08:18)
[2023-11-15] MEDS: ASPirin 81 mg TAB PO ONE (08:18)
[2023-11-15 08:24] LABS: INR 1.02 (0.9-1.15); Partial Thromboplastin Time 26.6 SEC (24.5-34.5); Prothrombin Time 10.8 sec (9.3-11.8)
[2023-11-15] MEDS: KETOROLAC TROMETH 30 MG/ML 1ML VIAL IV ONE (08:29)
[2023-11-15] MEDS ORDERED: NITROGLYCERIN 0.4 MG SL TAB SL PRN (09:00)
[2023-11-15] MEDS ORDERED: ACETAMINOPHEN 325 MG TAB PO PRN (09:00)
[2023-11-15] MEDS ORDERED: ONDANSETRON HCL 4 MG/2 ML VIAL IV PRN (09:00)
[2023-11-15] MEDS ORDERED: DOCUSATE SOD 100 MG CAP PO PRN (09:00)
[2023-11-15] MEDS ORDERED: MORPHINE SULFATE INJ 2 MG/ml SYRG IV PRN (09:00)
[2023-11-15 09:11] LABS: Urine Bacteria None Seen /hpf (None Seen); Urine WBC None Seen /hpf (0 - 3)
[2023-11-15 09:36] LABS: Urine Blood 1+ /uL (Negative); Urine Clarity Clear (Clear); Urine Color Light-Yellow (Yellow); Urine Mucus FEW (None Seen); Urine Protein, UAD TRACE (Negative); Urine Specific Gravity 1.024 (1.001-1.035); Urine Urobilinogen Normal (Negative); Urine pH 5.5 (5.0-9.0)
[2023-11-15 10:26] LABS: Triglycerides 74 mg/dL (< 150)
[2023-11-15 10:26] LABS: Amphetamine Screen, Urine Neg (NEGATIVE); Barbiturate Scree,Urine Neg (NEGATIVE); Benzodiazephine Screen, Urine Neg (NEGATIVE); Cocaine Screen, Urine Neg (NEGATIVE); Opiate Scree,Urine Pos (NEGATIVE)
[2023-11-15 10:27] LABS: LDL Cholesterol 85 mg/dL (< 100)
[2023-11-15 10:27] LABS: Cannabinoid Screen, Urine Neg (NEGATIVE); Phencyclidine Screen, Urine Neg (NEGATIVE)
[2023-11-15 10:28] LABS: Cholesterol 135 mg/dL (< 200); HDL Cholesterol 39 mg/dL (40-59)
[2023-11-15] MEDS: ENOXAPARIN SOD 40 MG/0.4 ML SYRINGE SC SCH (11:22)
[2023-11-15] MEDS: HYDROcodone-ACET 5/325MG TAB PO PRN (11:22)
[2023-11-15] MEDS: SODIUM CHLOR 0.9% PF (SALINE LOCK) 10ML VIAL/SYR IV SCH (14:12)
[2023-11-15] MEDS ORDERED: hydrALAZINE HCL 20 MG/ML VL IV PRN (14:30)
[2023-11-15] MEDS: RANOLAZINE ER 500 MG TAB PO SCH (21:09)
[2023-11-15] MEDS: CARVEDILOL 3.125 MG TAB PO SCH (21:09)
[2023-11-15] MEDS: ATORVASTATIN 20 MG TAB PO SCH (21:09)
[2023-11-15 22:00] VITALS: BP 118/65; PULSE 60; RESP 20; TEMP 98.6; O2SAT 100
[2023-11-15] MEDS: TEMAZEPAM 15 MG CAP PO ONE (23:08)
[2023-11-16 04:52] VITALS: BP 123/69; PULSE 60; RESP 16; TEMP 98.4; O2SAT 96
[2023-11-16 08:00] VITALS: PULSE 88; RESP 16; O2SAT 98
[2023-11-16 08:24] VITALS: BP 145/84; PULSE 61; RESP 20; TEMP 98.2; O2SAT 99
[2023-11-16] MEDS: ASPirin 81 mg TAB PO SCH (09:02)
[2023-11-16] MEDS: CLOPIDOGREL BISULFATE 75 MG TAB PO SCH (09:03)
[2023-11-16] MEDS ORDERED: SALINE 0.65 % NASAL SPRAY 45ML BOTTLE EACHNOSTRI PRN (10:30)
[2023-11-16 13:09] VITALS: BP 168/60; PULSE 62; RESP 18; TEMP 98.4; O2SAT 97
[2023-11-16 14:52] VITALS: BP 130/52; PULSE 92; RESP 16; TEMP 98.2; O2SAT 96
[2023-11-16] MEDS ORDERED: HYDR-4902 PO (15:15)
[2023-11-16] MEDS ORDERED: ATOR20TA50 PO (15:50)
[2023-11-16] MEDS ORDERED: CARV-214 PO (15:50)
[2023-11-16] MEDS ORDERED: ASPI-325 PO (15:50)
[2023-11-16] MEDS ORDERED: CLOP75TA70 PO (15:50)
[2023-11-17] MEDS ORDERED: TRAM-626 PO (14:15)
== END 2023-11-16 15:35 | disposition home or self-care (01) | DRG 198 ==
LOC: ER 07:24 → TELE 09:00 → TELE-WESTW 20:45
PROVIDERS: ADMIT Internal Medicine Geriatric Medicine; ATTEND Internal Medicine Geriatric Medicine
DX: I25.118 Atherosclerotic heart disease of native coronary artery with other forms of angina pectoris (principal); E66.9 Obesity, unspecified; I16.0 Hypertensive urgency; E78.5 Hyperlipidemia, unspecified; G89.29 Other chronic pain; I25.2 Old myocardial infarction; Z98.61 Coronary angioplasty status; Z90.49 Acquired absence of other specified parts of digestive tract; Z82.49 Family history of ischemic heart disease and other diseases of the circulatory system; Z91.199 Patient's noncompliance with other medical treatment and regimen due to unspecified reason; Z68.32 Body mass index [BMI] 32.0-32.9, adult
CPT/HCPCS: 36415; 71045; 72100; 80053; 80061; 80307; 81001; 83735; 83880; 84443; 84484; 85025; 85610; 85730; 93005; 96372; 96374; G0378; J1885

== ENCOUNTER 2024-04-22 08:30 | Inpatient (IN) | payer MEDICAID, OTHER ==
[~2024-04-22] VITALS: Ht 188 cm; Wt 126.1 kg
[~2024-04-22 08:30] MED LIST changes: +AMLO1TAB22 PO; +CARV-214 PO; +CARV12.544 PO; +ERGO500086 PO; +FLUT50SP31 EACHNOSTRI; +MELO15TA29 PO; +TRAM-626 PO
[2024-04-22 08:58] LABS: Basophils # (auto) 0.1 10 ^3/uL (0-0.2); Basophils % (auto) 0.8 % (0.0-2.0); Eosinophils # (auto) 0.2 10 ^3/uL (0-0.8); Eosinophils % (auto) 1.9 % (0.0-7.0); Hematocrit 44.9 % (41.0-53.0); Lymphocytes # (auto) 2.1 10 ^3/uL (0.4-5.4); Mean Corpuscular Hemoglobin 30.8 pg (28.0-32.0); Mean Corpuscular Hgb Conc. 33.4 g/dL (32.0-36.0); Mean Corpuscular Volume 92.4 fL (80.0-100.0); Monocytes # (auto) 0.6 10 ^3/uL (0-1.3); Monocytes % (auto) 6.6 % (0.0-12.0); Neutrophils # (auto) 5.9 10 ^3/uL (1.6-8.6); Neutrophils % (auto) 66.7 % (37.0-80.0); Nucleated Red Blood Cells % 0.1 %; Platelet Count (auto) 274 10^3/uL (140-450); Red Blood Cells 4.85 10^6/uL (4.5-5.90); Red Cell Distribution Width 13.8 % (11.8-14.3); White Blood Cell 8.8 10^3/uL (4.4-10.8)
--- NOTE | 2024-04-22 09:01 | ED.PDOC ---
HPI Comments 63 y.o male with PMH of HTN, HLD, AK, presents to the ED for a chief complaint of substernal chest pain that started last night. Patient describes pain as a burning sensation, is constant, non radiating and presents with new onset dizziness this morning upon getting up from bed. Patient reports pain is similar to previous AK. Patient also presents with right toe swelling and pain that has been ongoing for a couple weeks and states he has not been able to see his PCP for complaint. He denies any other symptoms or pain. He denies any substance, alcohol or tobacco use. Chief Complaint: Chest Pain Time Seen by MD: 08:48 Primary Care Provider: SARAH Reviewed Notes: Nurses Notes, Medications, Allergies Allergies: Coded Allergies: No Known Drug Allergy (Verified Allergy, Unknown, 08/02/23) Home Meds Active Scripts Tramadol HCl (Tramadol HCl) 50 Mg Tab, 50 MG PO Q6HP PRN, #30 TAB Prov:TED GANDHI MD 11/17/23 Clopidogrel Bisulfate (CLOPIDOGREL) 75 Mg Tab, 75 MG PO DAILY for 30 Days, #30 TAB Prov:SHAKEEL CLARK RESIDENT 11/16/23 Carvedilol (COREG) 3.125 Mg Tab, 3.125 MG PO Q12HR for 30 Days, #60 TAB Prov:SHAKEEL CLARK RESIDENT 11/16/23 Atorvastatin Calcium (ATORVASTATIN CALCIUM) 20 Mg Tab, 40 MG PO HS for 30 Days, #60 TAB Prov:SHAKEEL CLARK RESIDENT 11/16/23 Aspirin (Aspirin Low Dose) 81 Mg Tab, 81 MG PO DAILY for 30 Days, #30 TAB Prov:SHAKEEL CLARK RESIDENT 11/16/23 Ranolazine (Ranolazine ER) 500 Mg Tab, 500 MG PO BID for 30 Days, #60 TAB Prov:ROB PAGE NP 10/01/23 Valsartan (Valsartan) 80 Mg Tab, 80 MG PO DAILY for 30 Days, #30 TAB Prov:EMERY APARICIO 09/15/23 Isosorbide Mononitrate (ISMO TABLET) 20 Mg Tb, 20 MG PO BID for 30 Days, #60 TAB Prov:EMERY APARICIO RESIDENT 09/15/23 Ergocalciferol (VITAMIN D 52246 UNIT) 50,000 [place], [address] UNIT PO Q7D for 30 Days, #10 CAP Prov:EMERY APARICIO RESIDENT 09/15/23 Atorvastatin Calcium (ATORVASTATIN CALCIUM) 20 Mg Tab, 80 MG PO HS for 30 Days, #120 TAB Prov:EMERY APARICIO RESIDENT 09/15/23 Carvedilol (COREG) 12.5 Mg Tab, 12.5 MG PO Q12HR, #60 TAB 5 Refills Prov:PHOENIX DRAKE MD 09/01/23 Amlodipine Besylate (NORVASC TABLET) 5 Mg Tb, 1 TAB PO DAILY, #30 TAB 5 Refills Prov:PHOENIX DRAKE MD 09/01/23 Fluticasone Propionate (Nasal) (Flonase Allergy Relief) 50 Mcg/Act Spr, 50 MCG NA BIDPRN PRN, #30 SPRAY Prov:PHOENIX DRAKE MD 08/31/23 Aspirin (Aspirin Low Dose) 81 Mg Tab, 81 MG PO DAILY, #30 TAB 5 Refills Prov:PHOENIX DRAKE MD 08/31/23 Acetaminophen (Acetaminophen) 500 Mg Tab, 500 MG PO QIDP for 30 Days, #120 TAB 0 Refills Prov:KAYLEE FERNANDEZ NP 08/11/23 Reported Medications Simvastatin (Simvastatin) 40 Mg Tab, 1 TAB PO DAILY 08/30/23 Nabumetone (Nabumetone) 500 Mg Tab, 1 TAB PO BID PRN 08/30/23 Clopidogrel Bisulfate (CLOPIDOGREL) 75 Mg Tab, 1 TAB PO DAILY 08/28/23 Information Source: Patient Mode of Arrival: Ambulatory Severity: Moderate Timing: Hours Duration: Since onset Location: Substernal Radiation: No Radiation Quality: Burning Onset: At Rest Cardiac Risk Factors: Hyperlipidemia, HTN PE Risk Factors: None History of: Similar pain in past Past Medical History PAST MEDICAL HISTORY: High Lipids, HTN, [place] Surgical History: PTCA Family History Family History: Reviewed,noncontributory to illness Social History Smoker: Non-Smoker Alcohol: Denies ETOH Use Drugs: Denies Drug Use Lives In: Home Constitutional: denies: chills, diaphoresis, fatigue, fever, malaise, sweats, weakness, others EENTM: denies: blurred vision, double vision, ear bleeding, ear discharge, ear drainage, ear pain, ear ringing, eye pain, eye redness, hearing loss, mouth pain, mouth swelling, nasal discharge, nose bleeding, nose congestion, nose pain, photophobia, tearing, throat pain, throat swelling, voice changes, others Respiratory: denies: cough, hemoptysis, orthopnea, SOB at rest, shortness of breath, SOB with excertion, stridor, wheezing, others Cardiovascular: reports: chest pain; denies: dizzy spells, diaphoresis, Dyspnea on exertion, edema, irregular heart beat, left arm pain, lightheadedness, palpitations, PND, syncope, others Gastrointestinal: denies: abdomen distended, abdominal pain, blood streaked bowels, constipated, diarrhea, dysphagia, difficulty swallowing, hematemesis, melena, nausea, poor appetite, poor fluid intake, rectal bleeding, rectal pain, vomiting, others Genitourinary: denies: burning, dysuria, flank pain, frequency, hematuria, incontinence, penile discharge, penile sore, pain, testicle pain, testicle swelling, urgency, others Neurological: reports: dizziness; denies: fainting, headache, left sided numbness, left sided weakness, numbness, paresthesia, pre-existing deficit, right sided numbness, right sided weakness, seizure, speech problems, tingling, tremors, weakness, others Musculoskeletal: denies: back pain, gout, joint pain, joint swelling, muscle pain, muscle stiffness, neck pain, others Integumetry: denies: bruises, change in color, change in hair/nails, dryness, laceration, lesions, lumps, rash, wounds, others Allergic/Immunocompromised: denies: Difficulty Healing, Frequent Infections, Hives, Itching, others Hematologic/Lymphatic: denies: anemia, blood clots, easy bleeding, easy bruising, swollen glands, others Endocrine: denies: excessive hunger, excessive sweating, excessive thirst, excessive urination, flushing, intolerance to cold, intolerance to heat, unexplained weight gain, unexplained weight loss, others Psychiatric: denies: anxiety, bipolar disorder, depression, hopeless, panic disorder, schizophrenia, sleepless, suicidal, others All Other Systems: Reviewed and Negative Physical Exam General Appearance: Moderate Distress HEENT: Normal ENT Inspection, Pharynx Normal, TMs Normal Neck: Full Range of Motion, Non-Tender, Normal, Normal Inspection Respiratory: Chest Non-Tender, Lungs Clear, No Accessory Muscle Use, No Respiratory Distress, Normal Breath Sounds Cardiovascular: No Edema, No JVD, No Murmur, No Gallop, Normal Peripheral Pulses, Regular Rate/Rhythm Breast Exam: Deferred Gastrointestinal: No Organomegaly, Non Tender, No Pulsatile Mass, Normal Bowel Sounds, Soft Genitalia: Deferred Pelvic: Deferred Rectal: Deferred Extremities: No calf tenderness, Normal capillary refill, Normal inspection, Normal range of motion, Non-tender, No pedal edema Musculoskeletal : Apperance: Normal Neurologic: Alert, quotation checker II-XII nml as Tested, No Motor Deficits, Normal Affect, Normal Mood, No Sensory Deficits Cerebellar Function: Normal Reflexes: Normal Skin: Dry, Normal Color, Warm Peripheral Pulses: 3+ Radial (R), 3+ Radial (L) Lymphatic: No Adenopathy Was a procedure done? Was a procedure done?: No CP Differential Dx Differential Diagnosis: A-fib, A-Flutter, Angina, Anxiety / Panic Attack, Atrial Dysrhythmia Differential Diagnosis: Angina, Chest Wall Pain, Costochondritis, Myocardial Infarction, Pericarditis, Pulmonary Embolus X-Ray, Labs, Meds, VS Vital Signs Date Time Temp Pulse Resp B/P (MAP) Pulse Ox O2 Delivery O2 Flow Rate FiO2 04/22/24 09:04 82 20 97 Room Air 04/22/24 09:04 97.4 82 20 109/83 (92) 97 97.4 04/22/24 08:41 77 04/22/24 08:41 97.9 81 20 122/88 (99) 99 Lab Test 04/22/24 10:26 04/22/24 08:46 Range/Units Troponin I High Sensitivity Pending < 3 L </=54 ng/L White Blood Count 8.8 4.4-10.8 10^3/uL Red Blood Count 4.85 4.5-5.90 10^6/uL Hemoglobin 15.0 13.5-17.5 g/dL Hematocrit 44.9 41.0-53.0 % Mean Corpuscular Volume 92.4 80.0-100.0 fL Mean Corpuscular Hemoglobin 30.8 28.0-32.0 pg Mean Corpuscular Hemoglobin Concent 33.4 32.0-36.0 g/dL Red Cell Distribution Width 13.8 11.8-14.3 % Platelet Count 274 140-450 10^3/uL Mean Platelet Volume 7.5 6.9-10.8 fL Neutrophils (%) (Auto) 66.7 37.0-80.0 % Lymphocytes (%) (Auto) 24.0 10.0-50.0 % Monocytes (%) (Auto) 6.6 0.0-12.0 % Eosinophils (%) (Auto) 1.9 0.0-7.0 % Basophils (%) (Auto) 0.8 0.0-2.0 % Neutrophils # (Auto) 5.9 1.6-8.6 10 ^3/uL Lymphocytes # (Auto) 2.1 0.4-5.4 10 ^3/uL Monocytes # (Auto) 0.6 0-1.3 10 ^3/uL Eosinophils # (Auto) 0.2 0-0.8 10 ^3/uL Basophils # (Auto) 0.1 0-0.2 10 ^3/uL Nucleated Red Blood Cells 0.1 % Sodium Level 140 136-145 mmol/L Potassium Level 4.4 3.5-5.1 mmol/L Chloride Level 106 98-107 mmol/L Carbon Dioxide Level 28 20-31 mmol/L Anion Gap 6 5-15 Blood Urea Nitrogen 14 9-23 mg/dL Creatinine 1.14 0.700-1.30 mg/dL Glomerular Filtration Rate Calc 73 >90 mL/min BUN/Creatinine Ratio 12.3 10.0-20.0 Serum Glucose 105 74-106 mg/dL Calcium Level 10.4 8.7-10.4 mg/dL Total Bilirubin 0.5 0.2-1.0 mg/dL Aspartate Amino Transferase (AST) 10 L 13-40 U/L Alanine Aminotransferase (ALT) 15 7-40 U/L Alkaline Phosphatase 94 46-116 U/L Total Protein 7.8 5.7-8.2 g/dL Albumin 4.7 3.2-4.8 g/dL Patient alert. Complaining of chest pain. He is having pain of his right great toe. Vitals stable. Answering all questions. EKG reviewed does not show any acute changes. Toe not swollen. No sign of gout. Continues to have chest pain. Was given aspirin. History of coronary artery disease. Reviewed his history. Explained to the patient. Time of 1ST Reevaluation: 09:00 Reevaluation 1ST: Unchanged Patient Education/Counseling: Diagnosis, Treatment, Prognosis Family Education/Counseling: No Family Present Additional Information I reviewed the following notes from patient's past medical encounters: 11/14- chest pain The following tests were ordered, and results were reviewed by me: CXR, Troponin x3, EKG x3, CMP, CBC Additional Information was gathered from interviewing the following independent historians: None I reviewed and agreed with the following test results read by other providers: CXR I discussed treatment and results with medical personnel Departure 1 Departure Time of Disposition: 11:07 Impression: Primary Impression: Chest pain of unknown etiology Disposition: ADMITTED INPATIENT Admit to: Med Surg Condition: Guarded Critical Care Note Critical Care Time?: Yes (45 min-critical care time only) Stability Stability form required: No Heart Score Heart Score: Heart Score Response (Comments) Value History Moderate Suspicious 1 EKG Normal 0 Age 45-64 1 Risk Factors >3 or Hx ASHD 2 Troponin Normal limit 0 Total 4 I personally scribed for CAROLYN HERNANDEZ MD ([email or web address]) on 04/22/24 at 09:01. Electronically submitted by Laureen Cruz ([facility]). CAROLYN HERNANDEZ MD Apr 22, 2024 09:01
--- NOTE | 2024-04-22 09:07 | DVH ---
XY CHEST PORTABLE, HISTORY: CHEST PAIN COMPARISON: XY CHEST PORTABLE on DOS: 11/15/23, XY CHEST PORTABLE on DOS: 09/29/23, XY CHEST PORTABLE o n DOS: 09/13/23 XY CHEST PORTABLE on DOS: 11/15/23, XY CHEST PORTABLE on DOS: 09/29/23, XY CHEST PORTABLE on DOS: TECHNICAL DATA: 1 view of the chest was obtained. FINDINGS: Lines and tubes: None Cardiomediastinal silhouette: normal Pulmonary vasculature: normal Lung expansion: normal Lung airspace: normal Lung interstitium: normal Pleura: normal Pneumothorax: no Bones: Unremarkable Other: no IMPRESSION: No acute intrathoracic abnormality.
[2024-04-22 09:16] LABS: Alanine Aminotransferase 15 U/L (7-40); Albumin 4.7 g/dL (3.2-4.8); Alkaline Phosphatase 94 U/L (46-116); Anion Gap 6 (5-15); BUN/Creatinine Ratio 12.3 (10.0-20.0); Bilirubin, Total 0.5 mg/dL (0.2-1.0); Blood Urea Nitrogen 14 mg/dL (9-23); Calcium 10.4 mg/dL (8.7-10.4); Carbon Dioxide 28 mmol/L (20-31); Chloride 106 mmol/L (98-107); Glucose 105 mg/dL (74-106); Potassium 4.4 mmol/L (3.5-5.1); Sodium 140 mmol/L (136-145); Total Protein 7.8 g/dL (5.7-8.2)
[2024-04-22 09:17] LABS: Aspartate Aminotransferase 10 U/L (13-40)
[2024-04-22] MEDS ORDERED: MORPHINE SULFATE INJ 2 MG/ml SYRG IV PRN (11:15)
[2024-04-22] MEDS ORDERED: NITROGLYCERIN 0.4 MG SL TAB SL PRN ×2 (11:15)
[2024-04-22] MEDS ORDERED: ONDANSETRON HCL 4 MG/2 ML VIAL IV PRN (11:15)
[2024-04-22] MEDS: ASPirin 325 MG TAB PO ONE (11:48)
[2024-04-22] MEDS ORDERED: COLC1CAP PO (12:02)
[2024-04-22] MEDS ORDERED: LISI10TA34 PO (12:02)
[2024-04-22] MEDS ORDERED: HYDR25TA5 PO (12:02)
[2024-04-22 12:16] LABS: Triglycerides 89 mg/dL (< 150)
[2024-04-22 12:17] LABS: LDL Cholesterol 88 mg/dL (< 100)
--- NOTE | 2024-04-22 12:18 | DVHHP2 ---
History of Present Illness Reason for Visit: Chest pain History of Present Illness Kyle Santiago is a 63-year-old male with past medical history of hypertension, hyperlipidemia, CA, status post PTCA x2, multiple myeloma, cholecystectomy, and cataracts who presents to the ED today for chest pain, dizziness, and shortness of breath x1 day. Patient reports that the chest pain is burning constant and 8/10 pain. Patient reports that it does not radiate anywhere. Patient reports that there are no alleviating or triggering factors. Patient reported that it occurred last night when he is here today for an evaluation. Patient also reports that he has right toe pain, denies that it is gout, patient reports that he wears tennis shoes and he does not see a investment recovery technician. Patient also reports that he takes at home lisinopril, hydroch lorothiazide, colchicine, Plavix, nabumetone, simvastatin, and aspirin. Patient denies use of alcohol, smoking, illicit drug use, and marijuana. Patient states that he received his stents years ago at [facility] and at [facility]. Cardiovascular: HTN, CA, hyperipidemia Past Medical History Cataracts Multiple myeloma Past Surgical History: Cholecystectomy, Other Past Surgical History PTCA x2 Family History: Other (Patient states that both parents are unknown medical history) Smoke: No ALCOHOL: none Drugs: None Lives: Alone Domestic Violence: Neg Review of Systems Constitutional: Yes: Other (Dizziness); No: Fever, Chills, Sweats, Weakness, Malaise Eyes: No: Pain, Vision change, Conjunctivae inflammation, Eyelid inflammation, Other, Redness ENT: No: Ear pain, Ear discharge, Nose pain, Nose discharge, Nose congestion, Mouth pain, Mouth swelling, Throat pain, Throat swelling, Other Respiratory: Shortness of breath; No: Cough, Dry, SOB with excertion, Wheezing, Hemoptysis, Pleuritic Pain, Sputum, Wheezing, Other Cardiovascular: Chest Pain; No: Palpitations, Orthopnea, Paroxysmal Noc. Dyspnea, Edema, Lt Headedness, Other Gastrointestinal: No: Nausea, Vomiting, Abdominal Pain, Diarrhea, Constipation, Melena, Hematochezia, Other Genitourinary: No Dysuria, No Frequency, No Incontinence, No Hematuria, No Retention, No Other Musculoskeletal: other (Right toe pain); No: neck pain, shoulder pain, arm pain, back pain, hand pain, leg pain, foot pain Skin: No: Rash, Lesions, Jaundice, Bruising, Other Neurological: No: Weakness, Numbness, Incoordination, Change in speech, Confusion, Seizures, Other Allergies: Coded Allergies: No Known Drug Allergy (Verified Allergy, Unknown, 08/02/23) Medications Current Medications Medications Dose Ordered Sig/Siobhan Route Start Time Stop Time Status Last Admin Dose Admin Aspirin 81 mg DAILY PO 04/23/24 10:00 UNV Morphine Sulfate 2 mg Q30MP PRN IV 04/22/24 11:15 UNV Acetaminophen 650 mg Q6HP PRN PO 04/22/24 11:15 UNV Nitroglycerin 0.4 mg Q5MINP PRN SL 04/22/24 11:15 UNV Ondansetron HCl 4 mg Q4HP PRN IV 04/22/24 11:15 UNV Nitroglycerin 0.4 mg Q5MINP PRN SL 04/22/24 11:15 UNV Morphine Sulfate 2 mg Q30M PRN IV 04/22/24 11:15 UNV Clopidogrel Bisulfate 75 mg DAILY PO 04/23/24 10:00 UNV Patient Own Medication 1 tab BID PRN PO 04/22/24 11:15 UNV Patient Own Medication 1 tab DAILY PO 04/23/24 10:00 UNV Exam Vital Signs Vital Signs Date Time Temp Pulse Resp B/P (MAP) Pulse Ox O2 Delivery O2 Flow Rate FiO2 04/22/24 11:47 97.7 68 20 114/73 (87) 98 97.7 04/22/24 09:04 Room Air General Appearance: Alert, Oriented X3, Cooperative, No acute distress HEENT: Atraumatic, PERRLA, EOMI, Mucous membr. moist/pink Respiratory: Clear to auscultation, Normal air movement Cardiovascular: Regular rate, Normal S1, Normal S2, No murmurs Abdominal: Normal bowel sounds, Soft, No tenderness, No hepatospenomegaly, No masses Extremities: No clubbing, No cyanosis, Normal pulses Skin: No rashes, No breakdown Neuro: Normal gait, Normal speech, Strength at 5/5 X4 ext, Normal tone, Sensat ion intact Psych/Mental Status: Mental status NL, Mood NL Labs/Xrays Labs Test 04/22/24 10:26 04/22/24 08:46 Range/Units Troponin I High Sensitivity < 3 L </=54 ng/L White Blood Count 8.8 4.4-10.8 10^3/uL Red Blood Count 4.85 4.5-5.90 10^6/uL Hemoglobin 15.0 13.5-17.5 g/dL Hematocrit 44.9 41.0-53.0 % Mean Corpuscular Volume 92.4 80.0-100.0 fL Mean Corpuscular Hemoglobin 30.8 28.0-32.0 pg Mean Corpuscular Hemoglobin Concent 33.4 32.0-36.0 g/dL Red Cell Distribution Width 13.8 11.8-14.3 % Platelet Count 274 140-450 10^3/uL Mean Platelet Volume 7.5 6.9-10.8 fL Neutrophils (%) (Auto) 66.7 37.0-80.0 % Lymphocytes (%) (Auto) 24.0 10.0-50.0 % Monocytes (%) (Auto) 6.6 0.0-12.0 % Eosinophils (%) (Auto) 1.9 0.0-7.0 % Basophils (%) (Auto) 0.8 0.0-2.0 % Neutrophils # (Auto) 5.9 1.6-8.6 10 ^3/uL Lymphocytes # (Auto) 2.1 0.4-5.4 10 ^3/uL Monocytes # (Auto) 0.6 0-1.3 10 ^3/uL Eosinophils # (Auto) 0.2 0-0.8 10 ^3/uL Basophils # (Auto) 0.1 0-0.2 10 ^3/uL Nucleated Red Blood Cells 0.1 % Sodium Level 140 136-145 mmol/L Potassium Level 4.4 3.5-5.1 mmol/L Chloride Level 106 98-107 mmol/L Carbon Dioxide Level 28 20-31 mmol/L Anion Gap 6 5-15 Blood Urea Nitrogen 14 9-23 mg/dL Creatinine 1.14 0.700-1.30 mg/dL Glomerular Filtration Rate Calc 73 >90 mL/min BUN/Creatinine Ratio 12.3 10.0-20.0 Serum Glucose 105 74-106 mg/dL Calcium Level 10.4 8.7-10.4 mg/dL Total Bilirubin 0.5 0.2-1.0 mg/dL Aspartate Amino Transferase (AST) 10 L 13-40 U/L Alanine Aminotransferase (ALT) 15 7-40 U/L Alkaline Phosphatase 94 46-116 U/L Total Protein 7.8 5.7-8.2 g/dL Albumin 4.7 3.2-4.8 g/dL XY CHEST PORTABLE, HISTORY: CHEST PAIN COMPARISON: XY CHEST PORTABLE on DOS: 11/15/23, XY CHEST PORTABLE on DOS: 09/29/23, XY CHEST PORTABLE on DOS: 09/13/23 XY CHEST PORTABLE on DOS: 11/15/23, XY CHEST PORTABLE on DOS: 09/29/23, XY CHEST PORTABLE on DOS: 09/13/23 TECHNICAL DATA: 1 view of the chest was obtained. FINDINGS: Lines and tubes: None Cardiomediastinal silhouette: normal Pulmonary vasculature: normal Lung expansion: normal Lung airspace: normal Lung interstitium: normal Pleura: normal Pneumothorax: no Bones: Unremarkable Other: no IMPRESSION: No acute intrathoracic abnormality. Assessment/Plan Assessment/Plan Assessment/Plan: Atypical chest pain r/o ACS History of CA History of PTCA x2 Aspirin EKG Troponin negative x2 Chest x-ray negative Echo on 08/29/23 EF 65% Echo ordered TSH Lipid UDS Cardiology consult Labs EKG a.m. A.m. labs Antiemetics Pain management ACS protocol Aspirin Statin Right toe pain suspecting gout continue home medication, cochicine and nabumetone X-ray right foot Chronic hypertension Continue home medications Chronic hyperlipidemia Continue home medications Multiple myeloma Follow up outpatient with PCP FEN/PPX cardiac diet hl DVT prophylaxis not indicated patient ambulating PUD prophylaxis not indicated patient no history of GERD or GI bleed Home medications reconciled Discussed plan of care with patient and nurse Admit to tele Plan discussed with: Patient My Orders Orders - GURPREET ROSENBERG Procedure Category Date Status Time Admit ADMIT 04/22/24 Transmitted 11:13 Code Status CODE 04/22/24 Transmitted 11:13 Vital Signs ANIBAL 04/22/24 Transmitted 11:13 Electronic Bench Technician ANIBAL 04/22/24 Transmitted 11:13 Cardiac DIET 04/22/24 Transmitted Diet-2gna,Lofat,Lochol Lunch Aspirin Tablet PHA 04/23/24 Transmitted 10:00 Morphine Sulfate PHA 04/22/24 Transmitted Injection 11:15 Acetaminophen Tablet PHA 04/22/24 Transmitted (Tylenol Tablet) 11:15 Complete Blood Count LAB 04/23/24 Verified 04:00 Comprehensive LAB 04/23/24 Verified Metabolic Panel 04:00 Echo 2d Mode Cardiac US 04/22/24 Transmitted DOP 11:13 Nitroglycerin PHA 04/22/24 Transmitted Sublingual (Ntrostat 11:15 Ondansetron Hcl PHA 04/22/24 Transmitted (Zofran) 11:15 Electrocardigram EKG 04/23/24 Transmitted 04:00 Troponin-I Hs LAB 04/22/24 Transmitted 11:13 Cardiac ANIBAL 04/22/24 Transmitted Rehabilitation - Outpa Nitroglycerin PHA 04/22/24 Transmitted Sublingual (Ntrostat 11:15 Morphine Sulfate PHA 04/22/24 Transmitted Injection 11:15 Stat Ekg For Chest ANIBAL 04/22/24 Transmitted Pain 11:13 Notify Md Of Changes ANIBAL 04/22/24 Transmitted From Base 11:13 Wooling Machine Operator For [facility] 04/22/24 Transmitted 24 Hours 11:13 Emergency Dysrhythmia [facility] 04/22/24 Transmitted Protocol 11:13 Rhythm Strips Once ANIBAL 04/22/24 Transmitted Every Shift 11:13 Oxygen By Nasal RT 04/22/24 Transmitted Cannula 11:13 * Cardiology Consult CONS 04/22/24 Transmitted 11:13 Thyroid Stimulating LAB 04/22/24 Transmitted Hormone 11:13 Lipid Panel LAB 04/22/24 Transmitted 11:13 Drug Screen LAB 04/22/24 Transmitted 11:13 R Foot 2 View Xray XY 04/22/24 Transmitted 11:13 Clopidogrel Bisulfate PHA 04/23/24 Transmitted (Plavix) 10:00 (Nf) Nabumetone PHA 04/22/24 Transmitted 11:15 (Nf) Simvastatin PHA 04/23/24 Transmitted 10:00 Date of Service: Apr 22, 2024 Billing Provider: GURPREET ROSENBERG Common Visit Codes: [id number] INP/OBS CARE (HIGH) GURPREET ROSENBERGP Apr 22, 2024 12:18
[2024-04-22 12:19] LABS: Cholesterol 135 mg/dL (< 200)
[2024-04-22 12:31] LABS: HDL Cholesterol 36 mg/dL (40-59)
--- NOTE | 2024-04-22 12:38 | DVH ---
XY R FOOT 2 VIEW XRAY, INDICATION: right foot pain TECHNICAL DATA: Frontal and lateral views were obtained of the right foot. COMPARISON: None FINDINGS: No fracture is identified. Joint spaces are maintained. Alignment is anatomic. The hallux sesamoids a ppear normal. Soft tissues are within normal limits. IMPRESSION: No acute fracture or dislocation of the right foot.
--- NOTE | 2024-04-22 15:17 | DVHINCON2 ---
Date Seen: Apr 22, 2024 Referring Physician JIGNA Cummings Reason for Consultation Chest pain previous stent history History of Present Illness This is a 63-year-old male patient who presents to emergency room with chief complaint of chest pain and shortness of breath. The patient reports that the chest pain began at approximately 9:00 p.m. last night while he was resting. He describes it as unprovoked, pressure-like in nature, and substernal without radiation. Associated symptoms include shortness of breath. The patient reports taking two 81 mg aspirin at home with some relief. He decided to come to the emergency room for further evaluation. Initial twelve lead elect rocardiogram reveals normal sinus rhythm without any significant ST segment changes. Initial and repeat troponin level have been negative. Significant past medical history includes coronary artery disease status post PTCA x2 TRACY (in 2009 and 2011) on Plavix and aspirin therapy, history myocardial infarction, hypertension, dyslipidemia, chronic back pain, previous substance abuse, and obesity. Patient had a coronary angiogram at this facility on 08/30/[address] Land which revealed a widely patent stent to the left anterior descending artery and moderate coronary artery disease involving InStent restenosis of the left circumflex artery and the ostial diagonal branch. The patient also has had multiple visits since with similar complaints. Patient states he still has not established or followed up with any naturalization examiner in the outpatient setting. When asked if he has been compliant with his medications at home the patient replied "I try", but admits to missing doses of medication. Past Medical History Past medical history reviewed. No other significant than mentioned above. Past Surgical History Coronary angiogram with left heart catheterization on 08/30/2023 Family History: Cardiovascular disease G8 MOTHER, G8 FATHER, Family History Family history reviewed. Social History Denies the use of tobacco, alcohol or illicit drugs. Allergies: Coded Allergies: No Known Drug Allergy (Verified Allergy, Unknown, 08/02/23) Home Meds Active Scripts Tramadol HCl (Tramadol HCl) 50 Mg Tab, 50 MG PO Q6HP PRN, #30 TAB Prov:TED GANDHI MD 11/17/23 Clopidogrel Bisulfate (CLOPIDOGREL) 75 Mg Tab, 75 MG PO DAILY for 30 Days, #30 TAB Prov:SHAKEEL CLARK 11/16/23 Carvedilol (COREG) 3.125 Mg Tab, 3.125 MG PO Q12HR for 30 Days, #60 TAB Prov:AMBERSHAKEEL [facility] 11/16/23 Atorvastatin Calcium (ATORVASTATIN CALCIUM) 20 Mg Tab, 40 MG PO HS for 30 Days, #60 TAB Prov:AMBERSHAKEEL RESIDENT 11/16/23 Aspirin (Aspirin Low Dose) 81 Mg Tab, 81 MG PO DAILY for 30 Days, #30 TAB Prov:MARTINSHAKEEL BECKER [facility] 11/16/23 Ranolazine (Ranolazine ER) 500 Mg Tab, 500 MG PO BID for 30 Days, #60 TAB Prov:ROB PAGE [employer]IOR IT PROJECT MANAGER 10/01/23 Valsartan (Valsartan) 80 Mg Tab, 80 MG PO DAILY for 30 Days, #30 TAB Prov:EMERY APARICIO [facility] 09/15/23 Isosorbide Mononitrate (ISMO TABLET) 20 Mg Tb, 20 MG PO BID for 30 Days, #60 TAB Prov:EMERY APARICIO [facility] 09/15/23 Ergocalciferol (VITAMIN D 85612 UNIT) 50,000 [place], [address] UNIT PO Q7D for 30 Days, #10 CAP Prov:EMERY APARICIO [facility] 09/15/23 Atorvastatin Calcium (ATORVASTATIN CALCIUM) 20 Mg Tab, 80 MG PO HS for 30 Days, #120 TAB Prov:EMERY APARICIO [facility] 09/15/23 Carvedilol (COREG) 12.5 Mg Tab, 12.5 MG PO Q12HR, #60 TAB 5 Refills Prov:PHOENIX DRAKE MD 09/01/23 Amlodipine Besylate (NORVASC TABLET) 5 Mg Tb, 1 TAB PO DAILY, #30 TAB 5 Refills Prov:PHOENIX DRAKE MD 09/01/23 Fluticasone Propionate (Nasal) (Flonase Allergy Relief) 50 Mcg/Act Spr, 50 MCG NA BIDPRN PRN, #30 SPRAY Prov:PHOENIX DRAKE MD 08/31/23 Aspirin (Aspirin Low Dose) 81 Mg Tab, 81 MG PO DAILY, #30 TAB 5 Refills Prov:PHOENIX DRAKE MD 08/31/23 Acetaminophen (Acetaminophen) 500 Mg Tab, 500 MG PO QIDP for 30 Days, #120 TAB 0 Refills Prov:KAYLEE FERNANDEZ SENIOR IT PROJECT MANAGER 08/11/23 Reported Medications Colchicine (Colchicine) 0.6 Mg Cap, 0.6 MG PO 04/22/24 Hctz (Hydrochlorothiazide) 25 Mg Tab, 1 TAB PO DAILY 04/22/24 Lisinopril (Lisinopril) 10 Mg Tab, 1 TAB PO DAILY 04/22/24 Simvastatin (Simvastatin) 40 Mg Tab, 1 TAB PO DAILY 08/30/23 Nabumetone (Nabumetone) 500 Mg Tab, 1 TAB PO BID PRN 08/30/23 Clopidogrel Bisulfate (CLOPIDOGREL) 75 Mg Tab, 1 TAB PO DAILY 08/28/23 Home Meds Home medications reviewed. Current Medications Current Medications Medications (Trade) Dose Ordered Sig/Siobhan Route PRN Reason Start Time Stop Time Status Last Admin Aspirin 81 mg DAILY PO 04/23/24 10:00 Morphine Sulfate 2 mg Q30MP PRN IV FOR CHEST PAIN 04/22/24 11:15 Acetaminophen (Tylenol Tablet) 650 mg Q6HP PRN PO MILD PAIN (1-3 PAIN SCALE) 04/22/24 11:15 Nitroglycerin (Ntrostat Sublingual) 0.4 mg Q5MINP PRN SL FOR CHEST PAIN 04/22/24 11:15 04/22/24 12:54 DC Ondansetron HCl (Zofran) 4 mg Q4HP PRN IV NAUSEA / VOMITING 04/22/24 11:15 Nitroglycerin (Ntrostat Sublingual) 0.4 mg Q5MINP PRN SL FOR CHEST PAIN 04/22/24 11:15 Morphine Sulfate 2 mg Q30M PRN IV FOR CHEST PAIN 04/22/24 11:15 04/22/24 12:54 DC Clopidogrel Bisulfate (Plavix) 75 mg DAILY PO 04/23/24 10:00 Patient Own Medication 1 tab BID PO 04/22/24 22:00 Atorvastatin Calcium (Lipitor) 20 mg HS PO 04/22/24 22:00 Review of Systems Constitutional: No symptom reported Ears, Nose, & Throat: No symptom reported Eyes: No symptom reported Neurological: No symptoms reported Pulmonary/Respiratory: Shortness of breath Cardiovascular: Chest pain Gastrointestinal: No symptom reported Genitourinary: No symptom reported Musculoskeletal: No symptom reported Skin: No symptom reported Psychiatric: No symptom reported Endocrine: No symptom reported Hematologic/Lymphatic: No symptom reported Vital Signs Vital Signs Date Time Temp Pulse Resp B/P (MAP) Pulse Ox O2 Delivery O2 Flow Rate FiO2 04/22/24 11:47 97.7 68 20 114/73 (87) 98 97.7 04/22/24 09:04 Room Air Physical Exam General Appearance: Cooperative. Obese Pulmonary/Respiratory: Clear, bilateral breaths sounds. Cardiovascular/Chest: Regular rate and rhythm. Peripheral Pulses: 2+ Radial (R). 2+ Radial (L). 2+ Pedal (R). 2+ Pedal (L) Abdominal Exam: Normal bowel sounds. Ankle Exam: Trace ankle edema Lower extremities: Negative lower extremity edema Neuro/Mental Status: A/OX4, coherent. Thoughts/Psych: Normal thought pattern. Appropriate mood and affect. Good judgment and insight. Appearance: No acute distress. Skin Exam: Normal inspection. Normal color. Warm and dry. Labs/Diagnostic Data Labs Test 04/22/24 10:26 04/22/24 08:46 Range/Units Troponin I High Sensitivity < 3 L </=54 ng/L Triglycerides Level 89 < 150 mg/dL Cholesterol Level 135 < 200 mg/dL LDL Cholesterol 88 < 100 mg/dL HDL Cholesterol 36 L 40-59 mg/dL Thyroid Stimulating Hormone (TSH) 1.12 0.55-4.78 uIU/mL White Blood Count 8.8 4.4-10.8 10^3/uL Red Blood Count 4.85 4.5-5.90 10^6/uL Hemoglobin 15.0 13.5-17.5 g/dL Hematocrit 44.9 41.0-53.0 % Mean Corpuscular Volume 92.4 80.0-100.0 fL Mean Corpuscular Hemoglobin 30.8 28.0-32.0 pg Mean Corpuscular Hemoglobin Concent 33.4 32.0-36.0 g/dL Red Cell Distribution Width 13.8 11.8-14.3 % Platelet Count 274 140-450 10^3/uL Mean Platelet Volume 7.5 6.9-10.8 fL Neutrophils (%) (Auto) 66.7 37.0-80.0 % Lymphocytes (%) (Auto) 24.0 10.0-50.0 % Monocytes (%) (Auto) 6.6 0.0-12.0 % Eosinophils (%) (Auto) 1.9 0.0-7.0 % Basophils (%) (Auto) 0.8 0.0-2.0 % Neutrophils # (Auto) 5.9 1.6-8.6 10 ^3/uL Lymphocytes # (Auto) 2.1 0.4-5.4 10 ^3/uL Monocytes # (Auto) 0.6 0-1.3 10 ^3/uL Eosinophils # (Auto) 0.2 0-0.8 10 ^3/uL Basophils # (Auto) 0.1 0-0.2 10 ^3/uL Nucleated Red Blood Cells 0.1 % Sodium Level 140 136-145 mmol/L Potassium Level 4.4 3.5-5.1 mmol/L Chloride Level 106 98-107 mmol/L Carbon Dioxide Level 28 20-31 mmol/L Anion Gap 6 5-15 Blood Urea Nitrogen 14 9-23 mg/dL Creatinine 1.14 0.700-1.30 mg/dL Glomerular Filtration Rate Calc 73 >90 mL/min BUN/Creatinine Ratio 12.3 10.0-20.0 Serum Glucose 105 74-106 mg/dL Calcium Level 10.4 8.7-10.4 mg/dL Total Bilirubin 0.5 0.2-1.0 mg/dL Aspartate Amino Transferase (AST) 10 L 13-40 U/L Alanine Aminotransferase (ALT) 15 7-40 U/L Alkaline Phosphatase 94 46-116 U/L Total Protein 7.8 5.7-8.2 g/dL Albumin 4.7 3.2-4.8 g/dL Assessment Stable angina with moderate progressive CAD Coronary artery disease status post PTCA x2 TRACY (on Aspirin and Plavix) History myocardial infarction Hypertension Dyslipidemia History of substance abuse Obesity Medical noncompliance Plan/Recommendation We will continue with following plan/recommendations (Dr. Nath): * We will obtain a transthoracic echocardiogram to evaluate cardiac function * Previous echocardiogram from 08/29/23 reveals EF 65% * BP control * Continue dual antiplatelet therapy with Plavix and aspirin * Lipid-lowering agent * Cardiac surveillance: Monitor for any ECG changes * Risk factor modifications, counseled * Adherence to medication regimen Patient seen and examined at bedside with Dr. Nath. We will continue with medical management for the time being. We will consider possible stress test if symptoms persist despite medical management. Thank you for allowing us to care for this patient. Please call with any questions or concerns. Critical care time spent: 41 minutes This medical document was created using an electronic medical record system with voice recognition software and computerized dictation system. Although this document has been carefully reviewed, there might still be some phonetic and typographical errors. Occasional wrong-word or ``sound-alike substitutions may have occurred due to the inherent limitations of voice recognition software. These areas are purely typographical due to imperfections of the software programs and do not reflect any compromise in the patient's medical care. Please read the chart carefully and recognize, using context, where these substitutions have occurred. Plan discussed with: Patient Date of Service: Apr 22, 2024 Billing Provider: TIGIST MENDES Cardiology Common Codes: [id number] INP/OBS CARE (High) Cardiology Consultation Codes: [id number] CONSULT <45MIN TIGIST MENDES Apr 22, 2024 15:17
[2024-04-22] MEDS: HYDROcodone-ACET 5/325MG TAB PO ONE (16:04)
[2024-04-22 17:31] LABS: Cannabinoid Screen, Urine Neg (NEGATIVE)
[2024-04-22 18:12] VITALS: RESP 18; O2SAT 97
[2024-04-22 18:17] LABS: Amphetamine Screen, Urine Neg (NEGATIVE); Barbiturate Scree,Urine Neg (NEGATIVE); Benzodiazephine Screen, Urine Neg (NEGATIVE); Cocaine Screen, Urine Neg (NEGATIVE); Opiate Scree,Urine Pos (NEGATIVE); Phencyclidine Screen, Urine Neg (NEGATIVE)
[2024-04-22 18:21] VITALS: BP 125/72; PULSE 65; RESP 16; TEMP 97.7; O2SAT 93
[2024-04-22] MEDS: MORPHINE SULFATE 4 MG/ML SYR/VIAL IV PRN (20:26)
[2024-04-22] MEDS: NABUMETONE 500 MG PO SCH (22:00)
[2024-04-22 22:22] VITALS: BP 120/79; PULSE 67; RESP 20; TEMP 98.6; O2SAT 98
[2024-04-22] MEDS: ATORVASTATIN 20 MG TAB PO SCH (23:23)
[2024-04-22] MEDS: METOPROLOL TARTRATE 25 MG TAB PO SCH (23:24)
[2024-04-23] VITALS (7 sets, daily range): BP systolic 109–138; BP diastolic 64–81; PULSE 68–90; RESP 20; TEMP 97.8–98.4; O2SAT 97–100
[2024-04-23] MEDS: MORPHINE SULFATE INJ 2 MG/ml SYRG IV PRN (01:53)
[2024-04-23 07:44] LABS: Basophils # (auto) 0.1 10 ^3/uL (0-0.2); Basophils % (auto) 0.5 % (0.0-2.0); Eosinophils # (auto) 0.2 10 ^3/uL (0-0.8); Eosinophils % (auto) 2.7 % (0.0-7.0); Hematocrit 42.2 % (41.0-53.0); Hemoglobin 14.1 g/dL (13.5-17.5); Lymphocytes # (auto) 2.5 10 ^3/uL (0.4-5.4); Lymphocytes % (auto) 26.9 % (10.0-50.0); Mean Corpuscular Hemoglobin 30.7 pg (28.0-32.0); Mean Corpuscular Hgb Conc. 33.6 g/dL (32.0-36.0); Mean Corpuscular Volume 91.5 fL (80.0-100.0); Monocytes # (auto) 0.7 10 ^3/uL (0-1.3); Monocytes % (auto) 7.8 % (0.0-12.0); Neutrophils # (auto) 5.7 10 ^3/uL (1.6-8.6); Neutrophils % (auto) 62.1 % (37.0-80.0); Platelet Count (auto) 244 10^3/uL (140-450); Red Blood Cells 4.61 10^6/uL (4.5-5.90); Red Cell Distribution Width 13.8 % (11.8-14.3); White Blood Cell 9.3 10^3/uL (4.4-10.8)
[2024-04-23 08:02] LABS: Alanine Aminotransferase 13 U/L (7-40); Albumin 4.2 g/dL (3.2-4.8); Alkaline Phosphatase 83 U/L (46-116); Anion Gap 6 (5-15); BUN/Creatinine Ratio 15.9 (10.0-20.0); Bilirubin, Total 0.4 mg/dL (0.2-1.0); Blood Urea Nitrogen 22 mg/dL (9-23); Calcium 9.9 mg/dL (8.7-10.4); Carbon Dioxide 28 mmol/L (20-31); Chloride 106 mmol/L (98-107); Glucose 103 mg/dL (74-106); Potassium 4.6 mmol/L (3.5-5.1); Sodium 140 mmol/L (136-145)
[2024-04-23 08:11] LABS: Aspartate Aminotransferase 9 U/L (13-40)
--- NOTE | 2024-04-23 08:48 | ECG ---
[facility] Test Date: 2024-04-22 Test Time: 23:58:46 Pat Name: RUKHSANA DELATORRE Department: Respiratoy Room: 0218T B Gender: M Trim Mounter: : 1960 Requested By: TIGIST MENDES Order Number: [id number] Reading MD: Measurements Intervals [place] Rate: 65 P: 71 CT: 150 QRS: 25 QRSD: 79 T: 43 QT: 390 QTc: 406 Interpretive Statements Sinus rhythm Anterior infarct, old Please click the below link to view image of tracing.
--- NOTE | 2024-04-23 08:50 | ECG ---
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
[2024-04-23] MEDS: ASPirin 81 mg TAB PO SCH (11:20)
[2024-04-23] MEDS: CLOPIDOGREL BISULFATE 75 MG TAB PO SCH (11:20)
[2024-04-23] MEDS: HYDROcodone-ACET 5/325MG TAB PO PRN (11:20)
[2024-04-23] MEDS: LISINOPRIL 5 MG TAB PO SCH (11:21)
--- NOTE | 2024-04-23 13:17 | DVHPN2 ---
Subjective Had chest pain earlier this morning. Complains of pain in the right big toe and 1st MTP. History of same many years ago. He is not sure of gout diagnosis Reviewed: Care Plan, H&P, Labs, Medications, Previous Orders, Radiology, Other (Client Service Associate) Changes from previous H/P or p: No Changes Cardiovascular: Chest Pain [place]: No Per HPI, No Vaginal Bleed, No Vaginal Discharge, No Pelvic Pain, No Other Musculoskeletal: other (Right toe pain) Objective Vitals Vital Signs Date Time Temp Pulse Resp B/P (MAP) Pulse Ox O2 Delivery O2 Flow Rate FiO2 04/23/24 11:24 87 126/65 04/23/24 08:00 20 99 Room Air* 0 21 04/23/24 05:00 98.4 98.4 Intake/Output Intake and Output 04/23/24 07:00 Intake Total 700 ml Balance 700 ml Intake Oral 700 ml # Voids 1 General Appearance: Alert, Oriented X3, Cooperative, No acute distress HEENT: Atraumatic Lungs: Clear to auscultation Cardiovascular: Regular rate Abdomen: Normal bowel sounds, Soft, No tenderness Extremities: Other (Right great toe and 1st MTP some swelling and tenderness to palpation) Medications Current Medications Medications Dose Ordered Sig/Siobhan Route Start Time Stop Time Status Last Admin Dose Admin Aspirin 81 mg DAILY PO 04/23/24 10:00 04/23/24 11:20 81 MG Morphine Sulfate 2 mg Q30MP PRN IV 04/22/24 11:15 04/22/24 20:26 2 MG Acetaminophen 650 mg Q6HP PRN PO 04/22/24 11:15 Ondansetron HCl 4 mg Q4HP PRN IV 04/22/24 11:15 Nitroglycerin 0.4 mg Q5MINP PRN SL 04/22/24 11:15 Clopidogrel Bisulfate 75 mg DAILY PO 04/23/24 10:00 04/23/24 11:20 75 MG Patient Own Medication 1 tab BID PO 04/22/24 22:00 Atorvastatin Calcium 20 mg HS PO 04/22/24 22:00 04/22/24 23:23 20 MG Metoprolol Tartrate 12.5 mg BID PO 04/22/24 22:00 04/23/24 11:24 12.5 MG Lisinopril 5 mg DAILY PO 04/23/24 10:00 04/23/24 11:21 5 MG Acetaminophen/ Hydrocodone Bitart 1 tab Q4HPRN PRN PO 04/23/24 01:30 04/23/24 11:20 1 TAB Morphine Sulfate 2 mg Q4HPRN PRN IV 04/23/24 01:30 04/23/24 01:53 2 MG Laboratory Results Laboratory Tests 04/23/24 07:26 Chemistry Test 04/23/24 07:26 Albumin 4.2 g/dL (3.2-4.8) Calcium Level 9.9 mg/dL (8.7-10.4) Total Protein 7.0 g/dL (5.7-8.2) LFT Test 04/23/24 07:26 Alanine Aminotransferase (ALT) 13 U/L (7-40) Alkaline Phosphatase 83 U/L (46-116) Aspartate Amino Transferase (AST) 9 U/L (13-40) L Total Bilirubin 0.4 mg/dL (0.2-1.0) Assessment/Plan Assessment/Plan Chest pain History NE with PTCA and stent placement x2 in 2009 and 2011. Status post angiogram in August 2023 which showed in stent restenosis in the circumflex Right great toe and 1st MTP pain possibly gouty arthritis Hypertension Dyslipidemia History of substance use Morbid obesity with BMI 35.1 and multiple comorbidities to include heart attacks and coronary artery disease Plan: Cardiology consultation done. Check uric acid. Start colchicine. Pain control with Tylenol or [place]/patient asking for [place]. Further plan per orders Plan discussed with: Patient Date of Service: Apr 23, 2024 Billing Provider: JUSTINO LYNN MD Common Visit Codes: [id number] INP/OBS CARE(HIGH) JUSTINO LYNN MD Apr 23, 2024 13:17
[2024-04-23 13:43] LABS: Uric Acid 8.8 mg/dL (3.7-9.2)
[2024-04-23 13:52] LABS: CRP High Sensitivity 0.11 mg/dL (<1.0)
[2024-04-23 14:41] LABS: Erythrocyte Sedimentation Rate 7 mm/hr (0-20)
--- NOTE | 2024-04-23 15:11 | DVHSR ---
APPROVED REPORT EXAM: Two-dimensional and M-mode echocardiogram with Doppler and color Doppler. Blood Pressure: 120/79 mmHg INDICATION Chest Pain RISK FACTORS Height: 74, Weight: 273 DIMENSIONS LVDd4.4 (3.8-5.7cm)LA (2D)4.7 (1.9-4.0cm)Aortic Root3.4 (2.0-3.7cm) LVDs2.8 (2.5-4.0cm)LA (MM) (1.9-4.0cm)Aortic Cusp Exc2.1 (1.5-2.0cm) EF (%) 65.0 (55-70%)Rt. Atrium (1.9-4.0cm)Asc. Aorta cm IVSd1.3 (0.7-1.1cm)RV (D) (1.8-2.4cm) PWd1.5 (0.7-1.1cm) Mitral Valve MitralMitral Stenosis E wave0.71m/sMV Mean GR.mmHg A wave0.83m/sMV Peak GR.mmHg E/A ratio0.92D MVAcm2 DECEL [id number] 1/2 Dedx73yz IVRTmsDop MVA3.65cm2 Aortic Valve Aortic ValveAortic Stenosis V11.37m/Chance Mean GR.6mmHg V21.65m/Chance Peak GR.11mmHg LVOT Diameter1.8 (1.8-2.4cm)Doppler AVA2.11cm2 Pulmonic Valve V20.89m/s Tricuspid Valve TR Velocity2.90m/s [id number] LEFT VENTRICLE The left ventricle is normal size. There is mild to moderateconcentric left ventricular hypertrophy. The left ventricle is hyperdynamic, LVEF is > 70%. Mild diastolic dysfunction. Normal wall motion. RIGHT VENTRICLE The right ventricle is mildly dilated. The right ventricular systolic function is normal. ATRIA The left atrium is mildly dilated. The right atrium size is normal. MITRAL VALVE The mitral valve is grossly normal. There is no mitral valve regurgitation noted. PULMONIC VALVE The pulmonic valve is not well visualized. TRICUSPID VALVE The tricuspid valve is grossly normal. No tricuspid regurgitation. AORTIC VALVE The aortic valve is not well visualized. No aortic regurgitation is present. GREAT VESSELS The aortic root is normal size. PERICARDIAL EFFUSION No evidence of pericardial effusion. Conclusion Compared to prior echocardiogram 08/2023: No significant changes. The left ventricle is normal size. There is mild to moderateconcentric left ventricular hypertrophy. The left ventricle is hyperdynamic, LVEF is > 70%. Mild diastolic dysfunction. Normal wall motion. The right ventricle is mildly dilated. The right ventricular systolic function is normal. The left atrium is mildly dilated. No significant valvular abnormalities. No evidence of pericardial effusion.
[2024-04-23] MEDS: ACETAMINOPHEN 325 MG TAB PO PRN (15:36)
[2024-04-23] MEDS: COLCHICINE 0.6 MG CAP PO ONE (15:36)
--- NOTE | 2024-04-23 16:33 | DVHPN2 ---
Consult Progress Note Date Seen: Apr 23, 2024 Subjective Review of Systems: CVS:Abnormal, RESPIRATORY:Normal, NEURO:Normal Other Systems: C/o chest pain in the a.m. Objective vital signs Vital Sign Date Time Temp Pulse Resp B/P (MAP) Pulse Ox O2 Delivery O2 Flow Rate FiO2 04/23/24 13:00 98.0 72 20 138/81 (100) 98 98.0 04/23/24 08:00 Room Air* 0 21 Total Intake and Output 04/22/24 04/22/24 04/23/24 15:00 23:00 07:00 Intake Total 700 ml Balance 700 ml medications Current Medications Medications Dose Ordered Sig/Siobhan Route Start Time Stop Time Status Last Admin Dose Admin Aspirin 81 mg DAILY PO 04/23/24 10:00 04/23/24 11:20 81 MG Morphine Sulfate 2 mg Q30MP PRN IV 04/22/24 11:15 04/22/24 20:26 2 MG Acetaminophen 650 mg Q6HP PRN PO 04/22/24 11:15 04/23/24 15:36 650 MG Ondansetron HCl 4 mg Q4HP PRN IV 04/22/24 11:15 Nitroglycerin 0.4 mg Q5MINP PRN SL 04/22/24 11:15 Clopidogrel Bisulfate 75 mg DAILY PO 04/23/24 10:00 04/23/24 11:20 75 MG Patient Own Medication 1 tab BID PO 04/22/24 22:00 Atorvastatin Calcium 20 mg HS PO 04/22/24 22:00 04/22/24 23:23 20 MG Metoprolol Tartrate 12.5 mg BID PO 04/22/24 22:00 04/23/24 11:24 12.5 MG Lisinopril 5 mg DAILY PO 04/23/24 10:00 04/23/24 11:21 5 MG Acetaminophen/ Hydrocodone Bitart 1 tab Q4HPRN PRN PO 04/23/24 01:30 04/23/24 11:20 1 TAB Morphine Sulfate 2 mg Q4HPRN PRN IV 04/23/24 01:30 04/23/24 01:53 2 MG Colchicine 0.6 mg Q12HR PO 04/23/24 22:00 Examination: LUNGS:Normal, CVS:Normal, NEURO:Normal laboratory and microbiology Laboratory Tests 04/23/24 07:26 Test 04/23/24 07:26 Range/Units Serum Glucose 103 74-106 mg/dL Problem List/Assessment/Plan Problem List/Assessment/Plan Stable angina rule out progressive coronary artery disease/in-stent restenosis Coronary artery disease status post PTCA x2 TRACY (on Aspirin and Plavix) History myocardial infarction Hypertension Dyslipidemia History of substance abuse Medical noncompliance Obesity Plan/Recommendation (Dr. Gottlieb) * Transthoracic echocardiogram revealed LVEF >70% * There is oxap-de-kqegzzos concentric LVH. Mild diastolic dysfunction. Normal wall motion * Cardiolite stress test to rule out progressive CAD/in-stent restenosis * Continue dual-antiplatelet therapy with Plavix and lipid-lowering agent * Cardiac surveillance: Monitor for any ECG changes * Risk factor modifications, counseled * Adherence to medication regimen Patient seen and examined at bedside with Dr. Gottlieb. Thank you for allowing us to care for this patient. Please call with any questions or concerns. This medical document was created using an electronic medical record system with voice recognition software and computerized dictation system. Although this document has been carefully reviewed, there might still be some phonetic and typographical errors. Occasional wrong-word or ``sound-alike substitutions may have occurred due to the inherent limitations of voice recognition software. These areas are purely typographical due to imperfections of the software programs and do not reflect any compromise in the patient's medical care. Please read the chart carefully and recognize, using context, where these substitutions have occurred. Plan discussed with: Patient, Other Date of Service: Apr 23, 2024 Billing Provider: SNEHAL GOTTLIEB MD Cardiology Common Codes: [id number] [facility] Apr 23, 2024 16:33
[2024-04-23] MEDS: COLCHICINE 0.6 MG CAP PO SCH (21:47)
[2024-04-24 01:00] VITALS: BP 133/77; PULSE 65; RESP 20; TEMP 97.5; O2SAT 99
[2024-04-24 05:00] VITALS: BP 135/81; PULSE 63; RESP 20; TEMP 97.8; O2SAT 98
[2024-04-24 08:00] VITALS: PULSE 73
[2024-04-24] MEDS: REGADENOSON 0.4 MG/5 ML SYRG IV ONE ×2 (08:41→08:53)
--- NOTE | 2024-04-24 10:12 | DVHSR ---
APPROVED REPORT Exam: Nuclear Stress Test BMI: 0 Stress Test Details HR Max Heart Rate (APMHR): 158 bpm Target HR (85% APMHR): 134 bpm BP ECG Stress ECG Conclusion Review of the myocardial perfusion images demonstrated a moderate size area of moderate intensity red uced radiotracer uptake in the inferior wall that is more intense in the resting images compared to s tress images. Otherwise, there is homogeneous radiotracer uptake throughout the rest of the left jeronimo tricular myocardium. Left ventricular volumes are normal. Ejection fraction is normal and is estima henry at that 57%. There is no significant transient ischemic dilatation. Gated images were not perfo rmed to evaluate for wall motion abnormalities. Impressions: 1. Fixed defect in the inferior wall that is more intense in stress images; this is likely secondary to diaphragmatic attenuation. 2. Normal left ventricular systolic function. NM EXAM: Myocardial Perfusion REST/STRESS Imaging Protocol: Rest Tc-99m/Stress Tc-99m 1 day Resting Data Rest SPECT myocardial perfusion imaging was performed in supine position 60 minutes following the int ravenous injection of 13.5 mCi of Tc-99m Sestamibi. Administration Route: IV Administration Site: Left Arm Pharmacologic Stress Pharmacologic stress test was performed by injecting Regadenoson 0.4 mg IV push followed by the intra venous injection of 35.7 mCi of Tc-99m Sestamibi. Time of stress injection: 0844 Time of stress imagin Administration Route: IV Administration Site: Left Arm Gated Stress SPECT was performed 60 minutes after stress injection. The images were gated to evaluate regional wall motion and calculate left ventricular ejection fracti on. Stress only was performed in the Supine position. Nuclear Conclusion ECG Findings: negative for ischemia Clinical Findings: negative for ischemia Nuclear Findings: negative for ischemia Exercise Capacity: not assessed Left Ventricular Function: normal Risk Study: low Review of the myocardial perfusion images demonstrated a moderate size area of moderate intensity red uced radiotracer uptake in the inferior wall that is more intense in the resting images compared to s tress images. Otherwise, there is homogeneous radiotracer uptake throughout the rest of the left jeronimo tricular myocardium. Left ventricular volumes are normal. Ejection fraction is normal and is estima henry at that 57%. There is no significant transient ischemic dilatation. Gated images were not perfo rmed to evaluate for wall motion abnormalities. Impressions: 1. Fixed defect in the inferior wall that is more intense in stress images; this is likely secondary to diaphragmatic attenuation. 2. Normal left ventricular systolic function.
[2024-04-24 11:59] VITALS: BP 157/92; PULSE 63; RESP 20
[2024-04-24] MEDS ORDERED: METO25TA5 PO (12:35)
[2024-04-24] MEDS ORDERED: ATOR20TA PO (12:35)
[2024-04-24] MEDS ORDERED: HYDR-4902 PO (12:35)
[2024-04-24] MEDS ORDERED: ASPI-628 PO (12:35)
[2024-04-24] MEDS ORDERED: COLC1CAP PO (12:35)
[2024-04-24] MEDS ORDERED: CLOP75TA28 PO (12:35)
[2024-04-24] MEDS ORDERED: ALL300T PO (12:35)
[2024-04-24] MEDS ORDERED: LISI20TA56 PO (12:35)
--- NOTE | 2024-04-24 12:37 | DVHPN2 ---
Reviewed: Care Plan, H&P, Labs, Medications, Previous Orders, Radiology, Other (Resident Services Coordinator) Changes from previous H/P or p: No Changes Cardiovascular: Chest Pain CURRICULUM MANAGER: No Per HPI, No Vaginal Bleed, No Vaginal Discharge, No Pelvic Pain, No Other Musculoskeletal: other (Right toe pain) Objective Vitals Vital Signs Date Time Temp Pulse Resp B/P (MAP) Pulse Ox O2 Delivery O2 Flow Rate FiO2 04/24/24 11:29 78 18 148/65 04/24/24 05:00 97.8 98 97.8 04/23/24 20:00 Room Air* 0 21 Intake/Output Intake and Output 04/24/24 07:00 Intake Total 2016 ml Output Total 900 ml Balance 1117 ml Intake Oral 2016 ml Output Urine Total 900 ml # Voids 4 General Appearance: Alert, Oriented X3, Cooperative, No acute distress HEENT: Atraumatic Lungs: Clear to auscultation Cardiovascular: Regular rate Abdomen: Normal bowel sounds, Soft, No tenderness Extremities: Other (Right great toe and 1st MTP some swelling and tenderness to palpation) Medications Current Medications Medications Dose Ordered Sig/Siobhan Route Start Time Stop Time Status Last Admin Dose Admin Aspirin 81 mg DAILY PO 04/23/24 10:00 04/24/24 11:02 81 MG Morphine Sulfate 2 mg Q30MP PRN IV 04/22/24 11:15 04/22/24 20:26 2 MG Acetaminophen 650 mg Q6HP PRN PO 04/22/24 11:15 04/23/24 15:36 650 MG Ondansetron HCl 4 mg Q4HP PRN IV 04/22/24 11:15 Nitroglycerin 0.4 mg Q5MINP PRN SL 04/22/24 11:15 Clopidogrel Bisulfate 75 mg DAILY PO 04/23/24 10:00 04/24/24 11:02 75 MG Patient Own Medication 1 tab BID PO 04/22/24 22:00 Atorvastatin Calcium 20 mg HS PO 04/22/24 22:00 04/23/24 21:46 20 MG Metoprolol Tartrate 12.5 mg BID PO 04/22/24 22:00 04/24/24 11:14 12.5 MG Lisinopril 5 mg DAILY PO 04/23/24 10:00 04/23/24 11:21 5 MG Acetaminophen/ Hydrocodone Bitart 1 tab Q4HPRN PRN PO 04/23/24 01:30 04/24/24 07:38 1 TAB Morphine Sulfate 2 mg Q4HPRN PRN IV 04/23/24 01:30 04/24/24 11:29 2 MG Colchicine 0.6 mg Q12HR PO 04/23/24 22:00 04/24/24 11:01 0.6 MG Laboratory Results Laboratory Tests 04/23/24 07:26 Labs and/or images reviewed: Labs reviewed by me, Image(s) reviewed by me Assessment/Plan Assessment/Plan Stable angina rule out progressive coronary artery disease/in-stent restenosis Coronary artery disease status post PTCA x2 TRACY (on Aspirin and Plavix), echocardiogram 70 percent ejection fraction History myocardial infarction Hypertension Dyslipidemia History of substance abuse Medical noncompliance Obesity Plan discussed with: Patient Date of Service: Apr 24, 2024 Billing Provider: CRISTINO SOMMER MD Common Visit Codes: [id number] INP/OBS CARE(HIGH) CRISTINO SOMMER MD Apr 24, 2024 12:37
--- NOTE | 2024-04-24 12:41 | DVHDS2 ---
Discharge Summary Date of Admission Apr 22, 2024 at 11:13 Date of Discharge: Apr 24, 2024 Admitting Diagnosis Chest pain Wounds: None Labs/Diagnostic Data: Laboratory Results Test 04/23/24 07:26 04/22/24 16:01 04/22/24 10:26 White Blood Count 9.3 10^3/uL (4.4-10.8) Red Blood Count 4.61 10^6/uL (4.5-5.90) Hemoglobin 14.1 g/dL (13.5-17.5) Hematocrit 42.2 % (41.0-53.0) Mean Corpuscular Volume 91.5 fL (80.0-100.0) Mean Corpuscular Hemoglobin 30.7 pg (28.0-32.0) Mean Corpuscular Hemoglobin Concent 33.6 g/dL (32.0-36.0) Red Cell Distribution Width 13.8 % (11.8-14.3) Platelet Count 244 10^3/uL (140-450) Mean Platelet Volume 7.7 fL (6.9-10.8) Neutrophils (%) (Auto) 62.1 % (37.0-80.0) Lymphocytes (%) (Auto) 26.9 % (10.0-50.0) Monocytes (%) (Auto) 7.8 % (0.0-12.0) Eosinophils (%) (Auto) 2.7 % (0.0-7.0) Basophils (%) (Auto) 0.5 % (0.0-2.0) Neutrophils # (Auto) 5.7 10 ^3/uL (1.6-8.6) Lymphocytes # (Auto) 2.5 10 ^3/uL (0.4-5.4) Monocytes # (Auto) 0.7 10 ^3/uL (0-1.3) Eosinophils # (Auto) 0.2 10 ^3/uL (0-0.8) Basophils # (Auto) 0.1 10 ^3/uL (0-0.2) Nucleated Red Blood Cells 0.0 % Erythrocyte Sedimentation Rate 7 mm/hr (0-20) Sodium Level 140 mmol/L (136-145) Potassium Level 4.6 mmol/L (3.5-5.1) Chloride Level 106 mmol/L (98-107) Carbon Dioxide Level 28 mmol/L (20-31) Anion Gap 6 (5-15) Blood Urea Nitrogen 22 mg/dL (9-23) Creatinine 1.38 mg/dL (0.700-1.30) Glomerular Filtration Rate Calc 58 mL/min (>90) BUN/Creatinine Ratio 15.9 (10.0-20.0) Serum Glucose 103 mg/dL (74-106) Uric Acid 8.8 mg/dL (3.7-9.2) Calcium Level 9.9 mg/dL (8.7-10.4) Total Bilirubin 0.4 mg/dL (0.2-1.0) Aspartate Amino Transferase (AST) 9 U/L (13-40) Alanine Aminotransferase (ALT) 13 U/L (7-40) Alkaline Phosphatase 83 U/L (46-116) C-Reactive Protein High Sensitivity 0.11 mg/dL (<1.0) Total Protein 7.0 g/dL (5.7-8.2) Albumin 4.2 g/dL (3.2-4.8) Urine Opiates Screen Pos (NEGATIVE) Urine Fentanyl Screen Neg (NEGATIVE) Urine Barbiturates Screen Neg (NEGATIVE) Urine Phencyclidine Screen Neg (NEGATIVE) Urine Amphetamines Screen Neg (NEGATIVE) Urine Benzodiazepines Screen Neg (NEGATIVE) Urine Cocaine Screen Neg (NEGATIVE) Urine Cannabinoids Screen Neg (NEGATIVE) Troponin I High Sensitivity < 3 ng/L (</=54) Triglycerides Level 89 mg/dL (< 150) Cholesterol Level 135 mg/dL (< 200) LDL Cholesterol 88 mg/dL (< 100) HDL Cholesterol 36 mg/dL (40-59) Thyroid Stimulating Hormone (TSH) 1.12 uIU/mL (0.55-4.78) Other Laboratory Tests 04/23/24 07:26 Brief Hx & Hospital Course: 63-year-old male with a history of hypertension hypercholesterolemia my MS substance abuse medical noncompliance came in complaining of chest pain troponin negative x3. Seen by chainstitch tunnel elastic operator placed black on aspirin and Plavix echocardiogram 70 percent ejection fraction. No further cardiac workup discharged home [facility] Dr. Rojas as his PCP. Requesting refill for all his medications. Patient also has a history of substance abuse. At the present time of discharge patient is asymptomatic and discharged home in stable condition medications transmitted to the pharmacy Consults/Reason for consult Cardiology Operations or Procedures Echocardiogram Condition at Discharge: Fair Final Diagnosis/Problems List Stable angina rule out progressive coronary artery disease/in-stent restenosis Coronary artery disease status post PTCA x2 TRACY (on Aspirin and Plavix), echocardiogram 70 percent ejection fraction History myocardial infarction Hypertension Dyslipidemia History of substance abuse Medical noncompliance Obesity Discharge Disposition: Home Discharge Instruct/Medications Diet: Cardiac 2g Na,low cholest Activity: Light activity Follow Up/Referral: Resume all previous home medications Follow up with your new PCP Dr. Rojas Follow up with the chainstitch tunnel elastic operator in two weeks Medications: Aspirin Plavix Colchicine Allopurinol Lisinopril Lipitor Metoprolol tartrate [place] Transmitted to the pharmacy 39 (Time taken for discharge summary 39 minutes) Discharge Statement: "Patient was advised to return to the ER or call 911 if any headaches, dizziness, shortness of breath, chest pain, abdominal pain, bleeding, fevers, or worsening of medical condition. Patient was counseled about treatment plan, medications, possible side effects, patientverbalized understanding. All questions were answered to the best of my ability. This discharge took greater then 30 minutes in planning, reviewing documentation, counseling the patient, and discussing with other team members." ASSESSMENT ASSESSMENT Hospital Course Improved Assessment Stable angina rule out progressive coronary artery disease/in-stent restenosis Coronary artery disease status post PTCA x2 TRACY (on Aspirin and Plavix), echocardiogram 70 percent ejection fraction History myocardial infarction Hypertension Dyslipidemia History of substance abuse Medical noncompliance Obesity Date of Service: Apr 24, 2024 Billing Provider: CRISTINO SOMMER MD Common Visit Codes: [id number]/[id number] DISCH DAY >30min CRISTINO SOMMER MD Apr 24, 2024 12:41
--- NOTE | 2024-04-24 12:46 | DVHPN2 ---
Consult Progress Note Date Seen: Apr 24, 2024 Subjective Review of Systems: CVS:Normal, RESPIRATORY:Normal, NEURO:Normal Other Systems: Denies any acute cardiac events today. Stress test completed Objective vital signs Vital Sign Date Time Temp Pulse Resp B/P (MAP) Pulse Ox O2 Delivery O2 Flow Rate FiO2 04/24/24 11:29 78 18 148/65 04/24/24 05:00 97.8 98 97.8 04/23/24 20:00 Room Air* 0 21 Total Intake and Output 04/23/24 04/23/24 04/24/24 15:00 23:00 07:00 Intake Total 467 ml 800 ml 750 ml Output Total 900 ml Balance 467 ml -100 ml 750 ml medications Current Medications Medications Dose Ordered Sig/Siobhan Route Start Time Stop Time Status Last Admin Dose Admin Aspirin 81 mg DAILY PO 04/23/24 10:00 04/24/24 11:02 81 MG Morphine Sulfate 2 mg Q30MP PRN IV 04/22/24 11:15 04/22/24 20:26 2 MG Acetaminophen 650 mg Q6HP PRN PO 04/22/24 11:15 04/23/24 15:36 650 MG Ondansetron HCl 4 mg Q4HP PRN IV 04/22/24 11:15 Nitroglycerin 0.4 mg Q5MINP PRN SL 04/22/24 11:15 Clopidogrel Bisulfate 75 mg DAILY PO 04/23/24 10:00 04/24/24 11:02 75 MG Patient Own Medication 1 tab BID PO 04/22/24 22:00 Atorvastatin Calcium 20 mg HS PO 04/22/24 22:00 04/23/24 21:46 20 MG Metoprolol Tartrate 12.5 mg BID PO 04/22/24 22:00 04/24/24 11:14 12.5 MG Lisinopril 5 mg DAILY PO 04/23/24 10:00 04/23/24 11:21 5 MG Acetaminophen/ Hydrocodone Bitart 1 tab Q4HPRN PRN PO 04/23/24 01:30 04/24/24 07:38 1 TAB Morphine Sulfate 2 mg Q4HPRN PRN IV 04/23/24 01:30 04/24/24 11:29 2 MG Colchicine 0.6 mg Q12HR PO 04/23/24 22:00 04/24/24 11:01 0.6 MG Examination: LUNGS:Normal, CVS:Normal, NEURO:Normal laboratory and microbiology Laboratory Tests 04/23/24 07:26 Test 04/23/24 07:26 Range/Units Serum Glucose 103 74-106 mg/dL Problem List/Assessment/Plan Problem List/Assessment/Plan Stable angina rule out progressive coronary artery disease/in-stent restenosis Coronary artery disease status post PTCA x2 TRACY (on Aspirin and Plavix) History myocardial infarction Hypertension Dyslipidemia History of substance abuse Medical noncompliance Obesity Plan/Recommendation (Dr. Nath) * Transthoracic echocardiogram revealed LVEF >70% * There is [id number] concentric LVH. Mild diastolic dysfunction. Normal wall motion * Non-ischemic cardiolite stress test * Dual-antiplatelet therapy with Plavix and lipid-lowering agent * Risk factor modifications, counseled * Adherence to medication regimen. Follow-up with Cardiology within 3-4 weeks post-discharge Given history of PTCA with moderate in-stent restenosis of the LCx and ostial diagonal branch as seen on 08/30/2023, the patient was offered a cardiac catheterization and coronary angiogram. Prefers conservative management at this time. Continue aggressive medical therapy. We will sign off at this time. Kindly call if in need to re-consult. Thank you for allowing us to care for this patient. This medical document was created using an electronic medical record system with voice recognition software and computerized dictation system. Although this document has been carefully reviewed, there might still be some phonetic and typographical errors. Occasional wrong-word or ``sound-alike substitutions may have occurred due to the inherent limitations of voice recognition software. These areas are purely typographical due to imperfections of the software programs and do not reflect any compromise in the patient's medical care. Please read the chart carefully and recognize, using context, where these substitutions have occurred. Plan discussed with: Patient, Other Date of Service: Apr 24, 2024 Billing Provider: SHANTHI MILLER MD Cardiology Common Codes: [id number] [facility]( [facility] Apr 24, 2024 12:46
--- NOTE | 2024-04-26 14:31 | ECG ---
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
== END 2024-04-24 16:45 | disposition home or self-care (01) | DRG 206 ==
LOC: ER 08:30 → TELE 11:13 → TELE-CENTR 22:20
PROVIDERS: ATTEND Family Medicine
DX: T82.855A Stenosis of coronary artery stent, initial encounter (principal); C90.00 Multiple myeloma not having achieved remission; E66.01 Morbid (severe) obesity due to excess calories; E78.5 Hyperlipidemia, unspecified; I25.118 Atherosclerotic heart disease of native coronary artery with other forms of angina pectoris; I10 Essential (primary) hypertension; G89.29 Other chronic pain; Y83.1 Surgical operation with implant of artificial internal device as the cause of abnormal reaction of the patient, or of later complication, without mention of misadventure at the time of the procedure; Z68.35 Body mass index [BMI] 35.0-35.9, adult; I25.2 Old myocardial infarction; Z95.5 Presence of coronary angioplasty implant and graft; Z90.49 Acquired absence of other specified parts of digestive tract; Z82.49 Family history of ischemic heart disease and other diseases of the circulatory system; Z91.199 Patient's noncompliance with other medical treatment and regimen due to unspecified reason
CPT/HCPCS: 36415; 71045; 73620; 78452; 80053; 80061; 80307; 84443; 84484; 84550; 85025; 85652; 86141; 93005; 93017; 93306; 99291; G0378

== ENCOUNTER 2024-06-20 18:53 | Emergency (ER) | payer MEDICAID ==
[~2024-06-20] VITALS: Ht 188 cm; Wt 129.1 kg
[~2024-06-20 18:53] MED LIST changes: +ALL300T PO; -AML5T PO; -ASPI-325 PO; +ASPI-628 PO; +ATOR20TA PO; -ATOR20TA50 PO; -CARV-214 PO; -CARV-216 PO; +CLOP75TA28 PO; +COLC1CAP PO; -ERGO1CAP23 PO; -FLUT1SPR5; +HYDR-4902 PO; +HYDR25TA5 PO; +LISI20TA56 PO; +METO25TA5 PO; -TRAM-626 PO
--- NOTE | 2024-06-20 19:03 | ECG ---
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
[2024-06-20 19:36] LABS: Basophils # (auto) 0.1 10 ^3/uL (0-0.2); Basophils % (auto) 0.8 % (0.0-2.0); Eosinophils # (auto) 0.2 10 ^3/uL (0-0.8); Eosinophils % (auto) 2.2 % (0.0-7.0); Hematocrit 40.3 % (41.0-53.0); Hemoglobin 13.5 g/dL (13.5-17.5); Lymphocytes # (auto) 2.8 10 ^3/uL (0.4-5.4); Lymphocytes % (auto) 24.1 % (10.0-50.0); Mean Corpuscular Hemoglobin 30.6 pg (28.0-32.0); Mean Corpuscular Hgb Conc. 33.5 g/dL (32.0-36.0); Mean Corpuscular Volume 91.3 fL (80.0-100.0); Monocytes # (auto) 0.8 10 ^3/uL (0-1.3); Neutrophils # (auto) 7.6 10 ^3/uL (1.6-8.6); Neutrophils % (auto) 65.9 % (37.0-80.0); Platelet Count (auto) 258 10^3/uL (140-450); Red Blood Cells 4.42 10^6/uL (4.5-5.90); Red Cell Distribution Width 13.6 % (11.8-14.3); White Blood Cell 11.6 10^3/uL (4.4-10.8)
--- NOTE | 2024-06-20 19:46 | DVH ---
CHEST RADIOGRAPH Indication: cp Technique: Single frontal view of the chest was obtained Comparison: XY CHEST PORTABLE on DOS: 04/22/24, XY CHEST PORTABLE on DOS: 11/15/23, XY CHEST PORTABLE on DOS: 09/29/23 FINDINGS: Lines and Tubes: None Lungs: No focal consolidation. Pleura: No effusion. No pneumothorax. Cardiomediastinal contours: Unremarkable Bones: No acute osseous abnormality. IMPRESSION: 1. No acute cardiopulmonary disease.
[2024-06-20 19:53] LABS: Alanine Aminotransferase 16 U/L (7-40); Albumin 4.7 g/dL (3.2-4.8); Alkaline Phosphatase 96 U/L (46-116); Anion Gap 8 (5-15); BUN/Creatinine Ratio 16.2 (10.0-20.0); Carbon Dioxide 24 mmol/L (20-31); Glucose 102 mg/dL (74-106); Potassium 4.4 mmol/L (3.5-5.1); Sodium 143 mmol/L (136-145); Total Protein 7.6 g/dL (5.7-8.2)
[2024-06-20 19:54] LABS: Aspartate Aminotransferase 12 U/L (13-40); Bilirubin, Total 0.2 mg/dL (0.2-1.0); Blood Urea Nitrogen 23 mg/dL (9-23); Chloride 111 mmol/L (98-107)
[2024-06-20] MEDS ORDERED: IBUP-1455 PO (21:21)
--- NOTE | 2024-06-20 21:22 | ED.PDOC ---
HPI Comments 63-year-old male complaining of chest pain no shortness a breath which started at 3:00 p.m. today. States he was shortness a breath with minimal exertion. Concerned because it did have two stents placed 10 years ago. Patient states chest pain is pressure-like in nature comes and goes. Nothing makes it better, walking makes it worse. Patient also reports pain to his right great toe. States the pain has been going on for two weeks. No trauma to the foot. Chief Complaint: Chest Pain Time Seen by MD: 19:00 Primary Care Provider: NONE Allergies: Coded Allergies: No Known Drug Allergy (Verified Allergy, Unknown, 08/02/23) Home Meds Active Scripts Allopurinol (ZYLOPRIM TABLET) 300 Mg Tb, 1 TAB PO DAILY, #30 TAB 5 Refills Prov:CRISTINO SOMMER MD 04/24/24 Clopidogrel Bisulfate (Plavix) 75 Mg Tab, 1 TAB PO DAILY, #90 TAB 1 Refill Prov:CRISTINO SOMMER MD 04/24/24 Atorvastatin Calcium (Lipitor) 20 Mg Tab, 1 TAB PO DAILY, #90 TAB 1 Refill Prov:CRISTINO SOMMER MD 04/24/24 Metoprolol Tartrate (Metoprolol Tartrate) 25 Mg Tab, 1 TAB PO BID, #180 TAB 1 Refill Prov:CRISTINO SOMMER MD 04/24/24 Lisinopril (Lisinopril) 20 Mg Tab, 1 TAB PO DAILY, #30 TAB 5 Refills Prov:CRISTINO SOMMER MD 04/24/24 Hydrocodone-Acetaminophen (Hydrocodone Bitartrate/AC 5-325 mg) 1 Tab Tab, 1 TAB PO QID PRN, #30 TAB Prov:CRISTINO SOMMER MD 04/24/24 Colchicine (Colchicine) 0.6 Mg Cap, 0.6 MG PO BID, #30 CAP Prov:CRISTINO SOMMER MD 04/24/24 Aspirin (Aspirin Adult Low Dose) 81 Mg Tab, 81 MG PO DAILY, #90 TAB Prov:CRISTINO SOMMER MD 04/24/24 Ranolazine (Ranolazine ER) 500 Mg Tab, 500 MG PO BID for 30 Days, #60 TAB Prov:ROB PAGE NP 10/01/23 Valsartan (Valsartan) 80 Mg Tab, 80 MG PO DAILY for 30 Days, #30 TAB Prov:EMERY APARICIO RESIDENT 09/15/23 Isosorbide Mononitrate (ISMO TABLET) 20 Mg Tb, 20 MG PO BID for 30 Days, #60 TAB Prov:EMERY APARICIO RESIDENT 09/15/23 Acetaminophen (Acetaminophen) 500 Mg Tab, 500 MG PO QIDP for 30 Days, #120 TAB 0 Refills Prov:KAYLEE FERNANDEZ ART INSTALLER 08/11/23 Reported Medications Carvedilol (Carvedilol) 12.5 Mg Tab, 1 TAB PO BID for 30 Days, #60 04/24/24 Meloxicam (Meloxicam) 15 Mg Tab, 1 TAB PO DAILY for 30 Days, #30 04/24/24 Fluticasone Propionate (Nasal) (Fluticasone Propionate Na) 50 Mcg/Act Spr, 1 SPRAY EACHNOSTRI BID PRN for 60 Days, #16 04/24/24 Ergocalciferol (Vitamin D (Ergocalciferol) 50,000 Unit Cap, 1 CAP PO QWEEKLY for 14 Days, #2 04/24/24 Amlodipine Besylate (Amlodipine Besylate) 5 Mg Tab, 1 TAB PO DAILY for 30 Days, #30 04/24/24 Hctz (Hydrochlorothiazide) 25 Mg Tab, 1 TAB PO DAILY 04/22/24 Simvastatin (Simvastatin) 40 Mg Tab, 1 TAB PO DAILY 08/30/23 Nabumetone (Nabumetone) 500 Mg Tab, 1 TAB PO BID PRN 08/30/23 Clopidogrel Bisulfate (CLOPIDOGREL) 75 Mg Tab, 1 TAB PO DAILY 08/28/23 Information Source: Patient Mode of Arrival: Ambulatory Past Medical History PAST MEDICAL HISTORY: High Lipids, HTN, [place] Surgical History: PTCA Family History Family History: Reviewed,noncontributory to illness Social History Smoker: Non-Smoker Alcohol: Denies ETOH Use Drugs: Denies Drug Use Lives In: Home Constitutional: denies: chills, diaphoresis, fatigue, fever, malaise, sweats, weakness, others EENTM: denies: blurred vision, double vision, ear bleeding, ear discharge, ear drainage, ear pain, ear ringing, eye pain, eye redness, hearing loss, mouth pain, mouth swelling, nasal discharge, nose bleeding, nose congestion, nose pain, photophobia, tearing, throat pain, throat swelling, voice changes, others Respiratory: reports: SOB with excertion; denies: cough, hemoptysis, orthopnea, SOB at rest, shortness of breath, stridor, wheezing, others Cardiovascular: reports: chest pain; denies: dizzy spells, diaphoresis, Dyspnea on exertion, edema, irregular heart beat, left arm pain, lightheadedness, palpitations, PND, syncope, others Gastrointestinal: denies: abdomen distended, abdominal pain, blood streaked bowels, constipated, diarrhea, dysphagia, difficulty swallowing, hematemesis, melena, nausea, poor appetite, poor fluid intake, rectal bleeding, rectal pain, vomiting, others Genitourinary: denies: burning, dysuria, flank pain, frequency, hematuria, incontinence, penile discharge, penile sore, pain, testicle pain, testicle swelling, urgency, others Neurological: denies: dizziness, fainting, headache, left sided numbness, left sided weakness, numbness, paresthesia, pre-existing deficit, right sided numbness, right sided weakness, seizure, speech problems, tingling, tremors, weakness, others Musculoskeletal: reports: joint pain; denies: back pain, gout, joint swelling, muscle pain, muscle stiffness, neck pain, others Integumetry: denies: bruises, change in color, change in hair/nails, dryness, laceration, lesions, lumps, rash, wounds, others Physical Exam General Appearance: No Apparent Distress, Normal HEENT: Normal ENT Inspection, Pharynx Normal, TMs Normal Neck: Full Range of Motion, Non-Tender, Normal, Normal Inspection Respiratory: Chest Non-Tender, Lungs Clear, No Accessory Muscle Use, No Respiratory Distress, Normal Breath Sounds Cardiovascular: No Edema, No JVD, No Murmur, No Gallop, Normal Peripheral Pulses, Regular Rate/Rhythm Breast Exam: Deferred Gastrointestinal: No Organomegaly, Non Tender, No Pulsatile Mass, Normal Bowel Sounds, Soft Genitalia: Deferred Pelvic: Deferred Rectal: Deferred Extremities: No calf tenderness, Normal capillary refill, Normal inspection, Normal range of motion, Non-tender, No pedal edema Musculoskeletal : Location: Right Extremity Location: Great Toe (Wart noted on the plantar surface of the toe) Apperance: Normal Neurologic: Alert, annual giving director II-XII nml as Tested, No Motor Deficits, Normal Affect, Normal Mood, No Sensory Deficits Cerebellar Function: Normal Reflexes: Normal Skin: Dry, Normal Color, Warm Lymphatic: No Adenopathy Was a procedure done? Was a procedure done?: No CP Differential Dx Differential Diagnosis: Angina, Anxiety / Panic Attack, Atrial Dysrhythmia, Heart Failure, [place] Differential Diagnosis: Gastritis, Pneumonia X-Ray, Labs, Meds, VS Vital Signs Date Time Temp Pulse Resp B/P (MAP) Pulse Ox O2 Delivery O2 Flow Rate FiO2 06/20/24 19:52 70 06/20/24 19:01 78 06/20/24 18:58 97.2 81 20 147/103 (118) 98 Lab Test 06/20/24 20:24 06/20/24 19:22 Range/Units Troponin I High Sensitivity Pending 3 L </=54 ng/L White Blood Count 11.6 H 4.4-10.8 10^3/uL Red Blood Count 4.42 L 4.5-5.90 10^6/uL Hemoglobin 13.5 13.5-17.5 g/dL Hematocrit 40.3 L 41.0-53.0 % Mean Corpuscular Volume 91.3 80.0-100.0 fL Mean Corpuscular Hemoglobin 30.6 28.0-32.0 pg Mean Corpuscular Hemoglobin Concent 33.5 32.0-36.0 g/dL Red Cell Distribution Width 13.6 11.8-14.3 % Platelet Count 258 140-450 10^3/uL Mean Platelet Volume 7.7 6.9-10.8 fL Neutrophils (%) (Auto) 65.9 37.0-80.0 % Lymphocytes (%) (Auto) 24.1 10.0-50.0 % Monocytes (%) (Auto) 7.0 0.0-12.0 % Eosinophils (%) (Auto) 2.2 0.0-7.0 % Basophils (%) (Auto) 0.8 0.0-2.0 % Neutrophils # (Auto) 7.6 1.6-8.6 10 ^3/uL Lymphocytes # (Auto) 2.8 0.4-5.4 10 ^3/uL Monocytes # (Auto) 0.8 0-1.3 10 ^3/uL Eosinophils # (Auto) 0.2 0-0.8 10 ^3/uL Basophils # (Auto) 0.1 0-0.2 10 ^3/uL Nucleated Red Blood Cells 0.0 % Sodium Level 143 136-145 mmol/L Potassium Level 4.4 3.5-5.1 mmol/L Chloride Level 111 H 98-107 mmol/L Carbon Dioxide Level 24 20-31 mmol/L Anion Gap 8 5-15 Blood Urea Nitrogen 23 9-23 mg/dL Creatinine 1.42 H 0.700-1.30 mg/dL Glomerular Filtration Rate Calc 56 >90 mL/min BUN/Creatinine Ratio 16.2 10.0-20.0 Serum Glucose 102 74-106 mg/dL Calcium Level 10.0 8.7-10.4 mg/dL Total Bilirubin 0.2 0.2-1.0 mg/dL Aspartate Amino Transferase (AST) 12 L 13-40 U/L Alanine Aminotransferase (ALT) 16 7-40 U/L Alkaline Phosphatase 96 46-116 U/L Total Protein 7.6 5.7-8.2 g/dL Albumin 4.7 3.2-4.8 g/dL X-Ray, Labs, Meds, VS Comment Imaging: X-rays and CT scans were reviewed and interpreted by this provider, imaging shows no fractures and no pathological disease. Pending radiology review. Laboratory: Labs reviewed and interpreted by this provider. No significant abnormalities noted. Patient has prior medical visits reviewed. Med reconciliation performed Vital signs reviewed Time of 1ST Reevaluation: 21:21 Reevaluation 1ST: Improved Patient Education/Counseling: Diagnosis, Treatment, Need For Follow Up (Patient advised he will need to follow up with marbleizer or PCP for removal of his plantar wart. Advised if his chest pain returns or gets any worse he was follow up in the emergency department) Family Education/Counseling: Diagnosis Departure 1 Departure Time of Disposition: 21:20 Impression: Primary Impression: Chest pain Qualified Codes: R07.1 - Chest pain on breathing Additional Impression: Plantar wart, right foot Disposition: HOME / SELF CARE / HOMELESS Condition: Fair e-Prescriptions Ibuprofen Micronized (Ibuprofen) 800 Mg Tab 800 MG PO TID PRN, #30 TAB Prov: SHAHNAZ BERNARD 06/20/24 Discharged With: Self Critical Care Note Critical Care Time?: No Stability Stability form required: No Heart Score Heart Score: Heart Score Response (Comments) Value History Moderate Suspicious 1 EKG Normal 0 Age 45-64 1 Risk Factors 1 or 2 risk factors 1 Troponin Normal limit 0 Total 3 SHAHNAZ BERNARD Jun 20, 2024 21:22
[2024-06-20] MEDS: IPRATROPIUM BROM 0.5 MG/2.5ML INH SOL ONE (21:34)
[2024-06-20] MEDS: ALBUTEROL SULF 2.5 MG/0.5ML(0.5%) NEB SOLN NEB ONE (21:34)
[2024-06-20] MEDS: IPRATROPIUM BROM 0.5 MG/2.5ML INH SOL NEB ONE (21:35)
[2024-06-20] MEDS: ALBUTEROL SULF 2.5 MG/0.5ML(0.5%) NEB SOLN ONE (21:35)
[2024-06-20 22:17] VITALS: PULSE 75; RESP 20; O2SAT 96
[2024-06-20 22:18] VITALS: BP 146/81; PULSE 75; RESP 19; O2SAT 95
[2024-06-20] MEDS ORDERED: ALBU108A5 IN (22:26)
[2024-06-20] MEDS ORDERED: AZITTAB PO (22:26)
[2024-06-20] MEDS ORDERED: PRED20TA2 PO (22:26)
--- NOTE | 2024-06-21 06:15 | ECG ---
[facility] Test Date: 2024-06-20 Test Time: 19:52:57 Pat Name: RUKHSANA DELATORRE Department: ER Room: Gender: M Ed Manager: ER : 1960 Requested By: JEZ DE JESUS Order Number: [id number] Reading MD: Adrian Gonzales Measurements Intervals [place] Rate: 70 P: 68 ME: 145 QRS: 46 QRSD: 84 T: 15 QT: 395 QTc: 427 Interpretive Statements Sinus rhythm Anterior infarct, old Minimal ST depression, inferior leads Electronically Signed On 06-24-2024 17:47:18 PST by Adrian Gonzales Please click the below link to view image of tracing.
== END 2024-06-21 02:44 | disposition home or self-care (01) ==
LOC: ER 18:53
DX: R07.89 Other chest pain (principal); B07.0 Plantar wart; E78.5 Hyperlipidemia, unspecified; I10 Essential (primary) hypertension; I25.2 Old myocardial infarction; Z79.02 Long term (current) use of antithrombotics/antiplatelets; Z79.1 Long term (current) use of non-steroidal anti-inflammatories (NSAID); Z79.82 Long term (current) use of aspirin; Z79.899 Other long term (current) drug therapy
CPT/HCPCS: 36415; 71045; 80053; 83880; 84484; 85025; 93005; 94640

== ENCOUNTER 2024-08-19 07:56 | Inpatient (IN) | payer MEDICAID ==
[~2024-08-19] VITALS: Ht 188 cm; Wt 126.1 kg
[2024-08-19] VITALS (8 sets, daily range): BP systolic 96–108; BP diastolic 59–71; PULSE 78–98; RESP 16–20; TEMP 97.5–97.9; O2SAT 96–99
[~2024-08-19 07:56] MED LIST changes: +ALBU108A5 IN; +AZITTAB PO; +IBUP-1455 PO; +PRED20TA2 PO
--- NOTE | 2024-08-19 08:16 | ED.PDOC ---
HPI Comments 63 year old male presents to the ED with chief complaint of chest pain. Patient reports that he has been experiencing substernal, non-radiating chest pressure with associated dizziness since 2am this morning when getting up from bed. Patient relays that his chest pain worsens with walking and with sitting for a long period of time. Patient denies any SOB, fever, chills, cough, headache, nausea, or numbness/weakness of extremities. Chief Complaint: Chest Pain Time Seen by MD: 08:08 Primary Care Provider: NONE Reviewed Notes: Nurses Notes, Medications, Allergies Allergies: Coded Allergies: No Known Drug Allergy (Verified Allergy, Unknown, 08/02/23) Home Meds Active Scripts Azithromycin (Zithromax Z-Harsh) 250 Mg Tab, 250 MG PO DAILY for 5 Days, #5 TAB Prov:SHAHNAZ BERNARDP 06/20/24 Albuterol Sulfate (Albuterol Sulfate Hfa) 108 Mcg/Act Aer, 108 MCG IN TID PRN, #1 AER Prov:SHAHNAZ BERNARDP 06/20/24 Prednisone (Prednisone) 20 Mg Tab, 20 MG PO DAILY for 5 Days, #5 MG Prov:SHAHNAZ BERNARD SCIENTIST/ENGINEER 06/20/24 Ibuprofen Micronized (Ibuprofen) 800 Mg Tab, 800 MG PO TID PRN, #30 TAB Prov:SHAHNAZ BERNARD 06/20/24 Allopurinol (ZYLOPRIM TABLET) 300 Mg Tb, 1 TAB PO DAILY, #30 TAB 5 Refills Prov:CRISTINO SOMMER MD 04/24/24 Clopidogrel Bisulfate (Plavix) 75 Mg Tab, 1 TAB PO DAILY, #90 TAB 1 Refill Prov:CRISTINO SOMMER MD 04/24/24 Atorvastatin Calcium (Lipitor) 20 Mg Tab, 1 TAB PO DAILY, #90 TAB 1 Refill Prov:CRISTINO SOMMER MD 04/24/24 Metoprolol Tartrate (Metoprolol Tartrate) 25 Mg Tab, 1 TAB PO BID, #180 TAB 1 Refill Prov:CRISTINO SOMMER MD 04/24/24 Lisinopril (Lisinopril) 20 Mg Tab, 1 TAB PO DAILY, #30 TAB 5 Refills Prov:CRISTINO SOMMER MD 04/24/24 Hydrocodone-Acetaminophen (Hydrocodone Bitartrate/AC 5-325 mg) 1 Tab Tab, 1 TAB PO QID PRN, #30 TAB Prov:CRISTINO SOMMER MD 04/24/24 Colchicine (Colchicine) 0.6 Mg Cap, 0.6 MG PO BID, #30 CAP Prov:CRISTINO SOMMER MD 04/24/24 Aspirin (Aspirin Adult Low Dose) 81 Mg Tab, 81 MG PO DAILY, #90 TAB Prov:CRISTINO SOMMER MD 04/24/24 Ranolazine (Ranolazine ER) 500 Mg Tab, 500 MG PO BID for 30 Days, #60 TAB Prov:ROB PAGE AMERICAN HISTORY TEACHER 10/01/23 Valsartan (Valsartan) 80 Mg Tab, 80 MG PO DAILY for 30 Days, #30 TAB Prov:EMERY APARICIO RESIDENT 09/15/23 Isosorbide Mononitrate (ISMO TABLET) 20 Mg Tb, 20 MG PO BID for 30 Days, #60 TAB Prov:EMERY APARICIO RESIDENT 09/15/23 Acetaminophen (Acetaminophen) 500 Mg Tab, 500 MG PO QIDP for 30 Days, #120 TAB 0 Refills Prov:KAYLEE FERNANDEZ AMERICAN HISTORY TEACHER 08/11/23 Reported Medications Carvedilol (Carvedilol) 12.5 Mg Tab, 1 TAB PO BID for 30 Days, #60 04/24/24 Meloxicam (Meloxicam) 15 Mg Tab, 1 TAB PO DAILY for 30 Days, #30 04/24/24 Fluticasone Propionate (Nasal) (Fluticasone Propionate Na) 50 Mcg/Act Spr, 1 SPRAY EACHNOSTRI BID PRN for 60 Days, #16 04/24/24 Ergocalciferol (Vitamin D (Ergocalciferol) 50,000 Unit Cap, 1 CAP PO QWEEKLY for 14 Days, #2 04/24/24 Amlodipine Besylate (Amlodipine Besylate) 5 Mg Tab, 1 TAB PO DAILY for 30 Days, #30 04/24/24 Hctz (Hydrochlorothiazide) 25 Mg Tab, 1 TAB PO DAILY 04/22/24 Simvastatin (Simvastatin) 40 Mg Tab, 1 TAB PO DAILY 08/30/23 Nabumetone (Nabumetone) 500 Mg Tab, 1 TAB PO BID PRN 08/30/23 Clopidogrel Bisulfate (CLOPIDOGREL) 75 Mg Tab, 1 TAB PO DAILY 08/28/23 Information Source: Patient Mode of Arrival: Ambulatory Severity: Moderate Timing: Hours Duration: Since onset Prehospital treatment: None Location: Substernal Radiation: No Radiation Quality: Pressure Onset: At Rest Cardiac Risk Factors: Hyperlipidemia, HTN PE Risk Factors: None History of: Similar pain in past, NC Associated Signs and Symptoms: None Past Medical History PAST MEDICAL HISTORY: CAD, High Lipids, HTN, [place] Surgical History: PTCA Family History Family History: Reviewed,noncontributory to illness Social History Smoker: Non-Smoker Alcohol: Denies ETOH Use Drugs: Denies Drug Use Lives In: Home Constitutional: denies: chills, diaphoresis, fatigue, fever, malaise, sweats, weakness, others EENTM: denies: blurred vision, double vision, ear bleeding, ear discharge, ear drainage, ear pain, ear ringing, eye pain, eye redness, hearing loss, mouth pain, mouth swelling, nasal discharge, nose bleeding, nose congestion, nose pain, photophobia, tearing, throat pain, throat swelling, voice changes, others Respiratory: denies: cough, hemoptysis, orthopnea, SOB at rest, shortness of breath, SOB with excertion, stridor, wheezing, others Cardiovascular: reports: chest pain; denies: dizzy spells, diaphoresis, Dyspnea on exertion, edema, irregular heart beat, left arm pain, lightheadedness, palpitations, PND, syncope, others Gastrointestinal: denies: abdomen distended, abdominal pain, blood streaked bowels, constipated, diarrhea, dysphagia, difficulty swallowing, hematemesis, melena, nausea, poor appetite, poor fluid intake, rectal bleeding, rectal pain, vomiting, others Genitourinary: denies: burning, dysuria, flank pain, frequency, hematuria, incontinence, penile discharge, penile sore, pain, testicle pain, testicle swe lling, urgency, others Neurological: reports: dizziness; denies: fainting, headache, left sided numbness, left sided weakness, numbness, paresthesia, pre-existing deficit, right sided numbness, right sided weakness, seizure, speech problems, tingling, tremors, weakness, others Musculoskeletal: denies: back pain, gout, joint pain, joint swelling, muscle pain, muscle stiffness, neck pain, others Integumetry: denies: bruises, change in color, change in hair/nails, dryness, laceration, lesions, lumps, rash, wounds, others Allergic/Immunocompromised: denies: Difficulty Healing, Frequent Infections, Hives, Itching, others Hematologic/Lymphatic: denies: anemia, blood clots, easy bleeding, easy bruising, swollen glands, others Endocrine: denies: excessive hunger, excessive sweating, excessive thirst, excessive urination, flushing, intolerance to cold, intolerance to heat, unexplained weight gain, unexplained weight loss, others Psychiatric: denies: anxiety, bipolar disorder, depression, hopeless, panic disorder, schizophrenia, sleepless, suicidal, others All Other Systems: Reviewed and Negative Physical Exam General Appearance: No Apparent Distress, Normal HEENT: Normal ENT Inspection, Pharynx Normal, TMs Normal Neck: Full Range of Motion, Non-Tender, Normal, Normal Inspection Respiratory: Chest Non-Tender, Lungs Clear, No Accessory Muscle Use, No Respi ratory Distress, Normal Breath Sounds Cardiovascular: No Edema, No JVD, No Murmur, No Gallop, Normal Peripheral Pulses, Regular Rate/Rhythm, Other (Lower chest wall tenderness to palpation) Breast Exam: Deferred Gastrointestinal: No Organomegaly, Non Tender, No Pulsatile Mass, Normal Bowel Sounds, Soft Genitalia: Deferred Pelvic: Deferred Rectal: Deferred Extremities: No calf tenderness, Normal capillary refill, Normal inspection, Normal range of motion, Non-tender, No pedal edema Musculoskeletal : Apperance: Normal Neurologic: Alert, rail car loader II-XII nml as Tested, No Motor Deficits, Normal Affect, Normal Mood, No Sensory Deficits Cerebellar Function: Normal Reflexes: Normal Skin: Dry, Normal Color, Warm Lymphatic: No Adenopathy Was a procedure done? Was a procedure done?: No CP Differential Dx Differential Diagnosis: N/A Differential Diagnosis: N/A Differential Diagnosis: Angina, Chest Wall Pain, Costochondritis, Myocardial Infarction, Pericarditis, Pneumonia X-Ray, Labs, Meds, VS Vital Signs Date Time Temp Pulse Resp B/P (MAP) Pulse Ox O2 Delivery O2 Flow Rate FiO2 08/19/24 11:55 97.9 91 18 96/71 (79) 99 97.9 08/19/24 08:49 90 08/19/24 08:48 98.0 98 19 141/78 (99) 96 98.0 08/19/24 08:40 98 16 96 Room Air* 0 21 08/19/24 08:10 98.9 98 18 150/95 (113) 99 98.9 08/19/24 08:01 99 Lab Test 08/19/24 13:39 08/19/24 11:49 08/19/24 08:11 Range/Units Troponin I High Sensitivity 5 5 4 </=54 ng/L White Blood Count 10.7 4.4-10.8 10^3/uL Red Blood Count 5.25 4.5-5.90 10^6/uL Hemoglobin 15.8 13.5-17.5 g/dL Hematocrit 47.5 41.0-53.0 % Mean Corpuscular Volume 90.5 80.0-100.0 fL Mean Corpuscular Hemoglobin 30.1 28.0-32.0 pg Mean Corpuscular Hemoglobin Concent 33.2 32.0-36.0 g/dL Red Cell Distribution Width 13.2 11.8-14.3 % Platelet Count 258 140-450 10^3/uL Mean Platelet Volume 7.7 6.9-10.8 fL Neutrophils (%) (Auto) 79.9 37.0-80.0 % Lymphocytes (%) (Auto) 13.5 10.0-50.0 % Monocytes (%) (Auto) 5.9 0.0-12.0 % Eosinophils (%) (Auto) 0.4 0.0-7.0 % Basophils (%) (Auto) 0.3 0.0-2.0 % Neutrophils # (Auto) 8.5 1.6-8.6 10 ^3/uL Lymphocytes # (Auto) 1.4 0.4-5.4 10 ^3/uL Monocytes # (Auto) 0.6 0-1.3 10 ^3/uL Eosinophils # (Auto) 0 0-0.8 10 ^3/uL Basophils # (Auto) 0 0-0.2 10 ^3/uL Nucleated Red Blood Cells 0.0 % Sodium Level 142 136-145 mmol/L Potassium Level 3.3 L 3.5-5.1 mmol/L Chloride Level 106 98-107 mmol/L Carbon Dioxide Level 24 20-31 mmol/L Anion Gap 12 5-15 Blood Urea Nitrogen 13 9-23 mg/dL Creatinine 1.27 0.700-1.30 mg/dL Glomerular Filtration Rate Calc 64 >90 mL/min BUN/Creatinine Ratio 10.2 10.0-20.0 Serum Glucose 121 H 74-106 mg/dL Calcium Level 10.8 H 8.7-10.4 mg/dL Current Medications Medications (Trade) Dose Ordered Sig/Siobhan Route Start Time Stop Time Status Last Admin Aspirin 325 mg ONCE ONCE PO 08/19/24 08:15 08/19/24 08:16 DC 08/19/24 08:42 Chest XR: FINDINGS: LUNGS AND PLEURAL SPACES: Unremarkable. No consolidation. No pneumothorax. HEART: Cardiomegaly without overt failure. MEDIASTINUM: Unremarkable. Normal mediastinal contour. BONES/JOINTS: Unremarkable. No acute fracture. OTHER FINDINGS: . IMPRESSION: Cardiomegaly without overt failure. Images Reviewed?: Images reviewed and evaluated by me Time of 1ST Reevaluation: 09:08 Reevaluation 1ST: Unchanged Time of 2ND Reevaluation: 10:23 Reevaluation 2ND: Unchanged Patient Education/Counseling: Diagnosis, Treatment, Prognosis, Need For Follow Up Family Education/Counseling: No Family Present Additional Information Previous visits: 06/20/24 for chest pain, 04/22/24 for chest pain The following tests were ordered, and results were reviewed by me: CBC, BMP, Troponin, Chest XR, EKG Additional Information was gathered from interviewing the following independent historians: None I reviewed and agreed with the following test results read by other providers: Chest XR I discussed treatment and results with medical personnel and: patient Comprehensive systems review obtained and negative except for what is stated in the HPI. Departure 1 Departure Time of Disposition: 10:23 Impression: Primary Impression: Angina pectoris Disposition: ADMITTED INPATIENT Admit to: Tele Condition: Stable Discharged With: Self Critical Care Note Critical Care Time?: Yes (1 hr-critical care time only) Critical care comment: Due to concerns for patients condition deteriorating, the care required my highest level of attention and readiness to intervene. I assessed the patient, reviewed the medical records, ordered the appropriate tests and treatments, then reassessed for results and responsiveness. I communicated with medical personnel and consultants and formulated a plan of care. Total critical care time excludes any procedures Stability Stability form required: No Heart Score Heart Score: Heart Score Response (Comments) Value History Highly Suspicious 2 EKG Normal 0 Age 45-64 1 Risk Factors >3 or Hx ASHD 2 Troponin Normal limit 0 Total 5 I personally scribed for BRANDON FRANCISCO MD ([email or web address]) on 08/19/24 at 08:16. Electronically submitted by Moshe Ramos ([email or web address]). I personally scribed for BRANDON FRANCISCO MD ([email or web address]) on 08/19/24 at 09:48. Electronically submitted by Moshe Ramos ([email or web address]). BRANDON FRANCISCO MD August 19, 2024 08:16
[2024-08-19] MEDS: ASPirin 325 MG TAB PO ONE (08:42)
--- NOTE | 2024-08-19 08:57 | DVH ---
EXAM: XR Chest, 1 View CLINICAL INDICATION: cp TECHNIQUE: Frontal view of the chest. COMPARISON: XY CHEST XRAY 1 VIEW on DOS: 06/20/24, XY CHEST PORTABLE on DOS: 04/22/24, XY CHEST PORTABL E on DOS: 11/15/23, XY CHEST PORTABLE on DOS: 09/29/23, XY CHEST PORTABLE on DOS: 09/13/23 FINDINGS: LUNGS AND PLEURAL SPACES: Unremarkable. No consolidation. No pneumothorax. HEART: Cardiomegaly without overt failure. MEDIASTINUM: Unremarkable. Normal mediastinal contour. BONES/JOINTS: Unremarkable. No acute fracture. OTHER FINDINGS: . IMPRESSION: Cardiomegaly without overt failure.
[2024-08-19 09:08] LABS: Basophils # (auto) 0 10 ^3/uL (0-0.2); Basophils % (auto) 0.3 % (0.0-2.0); Chloride 106 mmol/L (98-107); Eosinophils # (auto) 0 10 ^3/uL (0-0.8); Eosinophils % (auto) 0.4 % (0.0-7.0); Hematocrit 47.5 % (41.0-53.0); Hemoglobin 15.8 g/dL (13.5-17.5); Lymphocytes # (auto) 1.4 10 ^3/uL (0.4-5.4); Lymphocytes % (auto) 13.5 % (10.0-50.0); Mean Corpuscular Hemoglobin 30.1 pg (28.0-32.0); Mean Corpuscular Hgb Conc. 33.2 g/dL (32.0-36.0); Mean Corpuscular Volume 90.5 fL (80.0-100.0); Monocytes # (auto) 0.6 10 ^3/uL (0-1.3); Monocytes % (auto) 5.9 % (0.0-12.0); Neutrophils # (auto) 8.5 10 ^3/uL (1.6-8.6); Neutrophils % (auto) 79.9 % (37.0-80.0); Platelet Count (auto) 258 10^3/uL (140-450); Red Blood Cells 5.25 10^6/uL (4.5-5.90); Red Cell Distribution Width 13.2 % (11.8-14.3); Sodium 142 mmol/L (136-145); White Blood Cell 10.7 10^3/uL (4.4-10.8)
[2024-08-19 09:09] LABS: Anion Gap 12 (5-15); Carbon Dioxide 24 mmol/L (20-31)
[2024-08-19 09:14] LABS: BUN/Creatinine Ratio 10.2 (10.0-20.0); Blood Urea Nitrogen 13 mg/dL (9-23)
[2024-08-19 09:18] LABS: Calcium 10.8 mg/dL (8.7-10.4); Glucose 121 mg/dL (74-106); Potassium 3.3 mmol/L (3.5-5.1)
[2024-08-19] MEDS: NITROGLYCERIN 0.4 MG SL TAB SL ONE (09:18)
[2024-08-19] MEDS ORDERED: ONDANSETRON HCL 4 MG/2 ML VIAL IV PRN (15:45)
[2024-08-19] MEDS ORDERED: ACETAMINOPHEN 325 MG TAB PO PRN (15:45)
[2024-08-19] MEDS ORDERED: NITROGLYCERIN 0.4 MG SL TAB SL PRN (15:45)
[2024-08-19] MEDS ORDERED: MORPHINE SULFATE INJ 2 MG/ml SYRG IV PRN (15:45)
--- NOTE | 2024-08-19 15:45 | DVHHP2 ---
History of Present Illness Reason for Visit: Chest discomfort History of Present Illness 63 year old male presents to the ED with chief complaint of chest pain. Patient reports that he has been experiencing substernal, non-radiating chest pressure with associated dizziness since 2am this morning when getting up from bed. Libby ent relays that his chest pain worsens with walking and with sitting for a long period of time. Patient denies any SOB, fever, chills, cough, headache, nausea, or numbness/weakness of extremities. At present he is chest pain-free. I have reviewed his prior admissions and charts. Patient had prior cardiac workup as well including coronary angiogram in August 2023 as well as echocardiogram in May 13. EXAM: Two-dimensional and M-mode echocardiogram with Doppler and color Doppler. Blood Pressure: 120/79 mmHg INDICATION Chest Pain Conclusion Compared to prior echocardiogram 08/2023: No significant changes. The left ventricle is normal size. There is mild to moderateconcentric left ventricular hypertrophy. The left ventricle is hyperdynamic, LVEF is > 70%. Mild diastolic dysfunction. Normal wall motion. The right ventricle is mildly dilated. The right ventricular systolic function is normal. The left atrium is mildly dilated. No significant valvular abnormalities. No evidence of pericardial effusion. SIGNED BY: SNEHAL GOTTLIEB MD SIGNED DATE/TIME: 04/23/24 1511Impression and plan: 1. Widely patent stent to the left anterior descending artery. Moderate coronary artery disease involving InStent restenosis of the left circumflex artery and the ostial diagonal branch. 2. Quite elevated left ventricular end-diastolic pressure 20 mm Hg with elevated systolic pressure indicating diastolic dysfunction secondary to uncontrolled hypertension. 3. Aggressive medical therapy is the best option at this stage given diffuse nature of disease and small distal caliber vessel. RODOLFO MATTHEWS MD August 30, 2023 14:49 Past Medical History CAD, High Lipids, HTN, CT Past Surgical History PTCA/coronary angiogram with stent placed Smoke: No ALCOHOL: rare Lives: with Family Review of Systems Review of Systems No fevers chills or sweats. No recent travel. No headache dizziness or lightheadedness. Other review of systems reviewed normal. Allergies: Coded Allergies: Onion (Verified Allergy, Mild, 08/19/24) ITCHING, HIVES No Known Drug Allergy (Verified Allergy, Unknown, 08/02/23) Uncoded Allergies: HAYNES PEPPERS (Allergy, Mild, 08/19/24) ITCHING, HIVES PEACHES (Allergy, Mild, 08/19/24) HIVES, ITCHING Exam Vital Signs Vital Signs Date Time Temp Pulse Resp B/P (MAP) Pulse Ox O2 Delivery O2 Flow Rate FiO2 08/19/24 11:55 97.9 91 18 96/71 (79) 99 97.9 08/19/24 08:40 Room Air* 0 21 Exam Alert awake oriented x3. HEENT neck supple no JVD pupils equal round react to light. Heart regular rate and rhythm S1-S2 no audible murmurs gallops or rubs. Lungs fair air movement. Chest tube will expansion. No rales or wheezes. Abdomen is soft. Nontender. Positive distal bowel sounds. Extremities. No edema. Positive distal pedal pulses. Neurologic. No focal deficits. Labs/Xrays Labs Test 08/19/24 13:39 08/19/24 08:11 Range/Units Troponin I High Sensitivity 5 </=54 ng/L White Blood Count 10.7 4.4-10.8 10^3/uL Red Blood Count 5.25 4.5-5.90 10^6/uL Hemoglobin 15.8 13.5-17.5 g/dL Hematocrit 47.5 41.0-53.0 % Mean Corpuscular Volume 90.5 80.0-100.0 fL Mean Corpuscular Hemoglobin 30.1 28.0-32.0 pg Mean Corpuscular Hemoglobin Concent 33.2 32.0-36.0 g/dL Red Cell Distribution Width 13.2 11.8-14.3 % Platelet Count 258 140-450 10^3/uL Mean Platelet Volume 7.7 6.9-10.8 fL Neutrophils (%) (Auto) 79.9 37.0-80.0 % Lymphocytes (%) (Auto) 13.5 10.0-50.0 % Monocytes (%) (Auto) 5.9 0.0-12.0 % Eosinophils (%) (Auto) 0.4 0.0-7.0 % Basophils (%) (Auto) 0.3 0.0-2.0 % Neutrophils # (Auto) 8.5 1.6-8.6 10 ^3/uL Lymphocytes # (Auto) 1.4 0.4-5.4 10 ^3/uL Monocytes # (Auto) 0.6 0-1.3 10 ^3/uL Eosinophils # (Auto) 0 0-0.8 10 ^3/uL Basophils # (Auto) 0 0-0.2 10 ^3/uL Nucleated Red Blood Cells 0.0 % Sodium Level 142 136-145 mmol/L Potassium Level 3.3 L 3.5-5.1 mmol/L Chloride Level 106 98-107 mmol/L Carbon Dioxide Level 24 20-31 mmol/L Anion Gap 12 5-15 Blood Urea Nitrogen 13 9-23 mg/dL Creatinine 1.27 0.700-1.30 mg/dL Glomerular Filtration Rate Calc 64 >90 mL/min BUN/Creatinine Ratio 10.2 10.0-20.0 Serum Glucose 121 H 74-106 mg/dL Calcium Level 10.8 H 8.7-10.4 mg/dL Assessment/Plan Assessment/Plan Given his cardiac risk factors with a history of stent placement we will observe him overnight on telemetry floor. We will do serial cardiac enzymes. Resume his dual antiplatelet therapy and blood pressure medications and control his blood pressure. Treated him for possible guarded with a proton pump inhibitor. Otherwise pain and nausea medications supportive care and treatment. Cardiac evaluation. Further clinical management per clinical course and recommendations from the cardiology consultant. Discussed with the nurse regarding care plan. Plan discussed with: Other Problem List: (1) Chronic pain syndrome (2) Uncontrolled hypertension (3) Chest pain of unknown etiology ANIAYH PENNINGTON MD August 19, 2024 15:45
[2024-08-19] MEDS ORDERED: ALBUTEROL SULF HFA 90MCG INH 200DOSE IN PRN (16:00)
[2024-08-19] MEDS ORDERED: ALBUTEROL SULF 2.5 MG/0.5ML(0.5%) NEB SOLN NEB PRN (16:30)
[2024-08-19] MEDS: POTASSIUM CHL 20 Meq TABLET PO ONE (18:06)
[2024-08-19] MEDS: HYDROcodone-ACET 5/325MG TAB PO PRN (18:07)
[2024-08-19] MEDS: PANTOPRAZOLE 40 MG TAB PO SCH (18:07)
--- NOTE | 2024-08-19 18:07 | ECG ---
[facility] Test Date: 2024-08-19 Test Time: 08:49:40 Pat Name: RUKHSANA DELATORRE Department: ED Room: [address] [place] [address] Gender: M Dredge Master: ER : 1960 Requested By: BRANDON FRANCISCO Order Number: [id number] Reading MD: Measurements Intervals [place] Rate: 90 P: 82 SD: 135 QRS: 68 QRSD: 90 T: 8 QT: 346 QTc: 424 Interpretive Statements Sinus rhythm Borderline repolarization abnormality Please click the below link to view image of tracing.
[2024-08-19] MEDS: SODIUM CHLORIDE 0.9% 1,000 ML IV ONE (19:06)
[2024-08-19] MEDS: MORPHINE SULFATE INJ 2 MG/ml SYRG IV PRN (19:23)
[2024-08-19] MEDS: FLUTICASONE PROP NASAL SPR 0.05 % (50MCG) 16GM EACHNOSTRI SCH (21:44)
[2024-08-19] MEDS: ISOSORBIDE MONONITRATE 20 MG TAB PO SCH (21:45)
[2024-08-19] MEDS: COLCHICINE 0.6 MG CAP PO SCH (21:45)
[2024-08-19] MEDS: RANOLAZINE ER 500 MG TAB PO SCH (21:45)
[2024-08-19] MEDS: CARVEDILOL 12.5 MG TAB PO SCH (21:46)
[2024-08-19 23:40] LABS: Urine Bacteria None Seen /hpf (None Seen)
[2024-08-19 23:49] LABS: Urine Blood Negative /uL (Negative); Urine Clarity Clear (Clear); Urine Color Yellow (Yellow); Urine Mucus FEW (None Seen); Urine Protein, UAD 1+ (Negative); Urine Specific Gravity 1.041 (1.001-1.035); Urine Squamous Epithelial Cell FEW /hpf (<5); Urine Urobilinogen 2 mg/dL (Negative); Urine WBC 1 /HPF (0-3); Urine pH 5.5 (5.0-9.0)
[2024-08-20] VITALS (11 sets, daily range): BP systolic 95–129; BP diastolic 51–92; PULSE 55–96; RESP 15–20; TEMP 97.6–98.2; O2SAT 95–99
[2024-08-20 00:03] LABS: Amphetamine Screen, Urine Neg (NEGATIVE); Barbiturate Scree,Urine Neg (NEGATIVE); Opiate Scree,Urine Pos (NEGATIVE); Phencyclidine Screen, Urine Neg (NEGATIVE)
[2024-08-20 00:04] LABS: Benzodiazephine Screen, Urine Neg (NEGATIVE); Cannabinoid Screen, Urine Neg (NEGATIVE); Cocaine Screen, Urine Neg (NEGATIVE)
[2024-08-20 06:32] LABS: Potassium 4.2 mmol/L (3.5-5.1); Sodium 143 mmol/L (136-145)
[2024-08-20 06:33] LABS: Anion Gap 8 (5-15); Calcium 9.7 mg/dL (8.7-10.4); Carbon Dioxide 26 mmol/L (20-31)
[2024-08-20 06:38] LABS: BUN/Creatinine Ratio 15.7 (10.0-20.0); Blood Urea Nitrogen 19 mg/dL (9-23); Glucose 103 mg/dL (74-106)
[2024-08-20 06:39] LABS: Chloride 109 mmol/L (98-107); Magnesium 1.7 mg/dL (1.6-2.6)
[2024-08-20] MEDS: ENOXAPARIN SOD 40 MG/0.4 ML SYRINGE SC SCH (10:01)
[2024-08-20] MEDS: CLOPIDOGREL BISULFATE 75 MG TAB PO SCH (10:01)
[2024-08-20] MEDS: ASPirin-EC 81 mg tab PO SCH (10:02)
--- NOTE | 2024-08-20 12:46 | DVHINCON2 ---
Date of service: August 20, 2024 History of Present Illness 63 year old male presents to the ED with chief complaint of chest pain. Patient reports that he has been experiencing substernal, non-radiating chest pressure with associated dizziness since 2am this morning when getting up from bed. Patient relays that his chest pain worsens with walking and with sitting for a long period of time. Patient denies any SOB, fever, chills, cough, headache, nausea, or numbness/weakness of extremities. At present he is chest pain-free. I have reviewed his prior admissions and charts. Patient had prior cardiac workup as well including coronary angiogram in August 2023 as well as echocardiogram in May 13. EXAM: Two-dimensional and M-mode echocardiogram with Doppler and color Doppler. Blood Pressure: 120/79 mmHg INDICATION Chest Pain Conclusion Compared to prior echocardiogram 08/2023: No significant changes. The left ventricle is normal size. There is mild to moderateconcentric left ventricular hypertrophy. The left ventricle is hyperdynamic, LVEF is > 70%. Mild diastolic dysfunction. Normal wall motion. The right ventricle is mildly dilated. The right ventricular systolic function is normal. The left atrium is mildly dilated. No significant valvular abnormalities. No evidence of pericardial effusion. Past Medical History reviewed Family History: Cardiovascular disease G8 MOTHER, G8 FATHER, Allergies: Coded Allergies: Onion (Verified Allergy, Mild, 08/19/24) ITCHING, HIVES No Known Drug Allergy (Verified Allergy, Unknown, 08/02/23) Uncoded Allergies: HAYNES PEPPERS (Allergy, Mild, 08/19/24) ITCHING, HIVES PEACHES (Allergy, Mild, 08/19/24) HIVES, ITCHING Home Meds Active Scripts Azithromycin (Zithromax Z-Harsh) 250 Mg Tab, 250 MG PO DAILY for 5 Days, #5 TAB Prov:SHAHNAZ BERNARD IT SECURITY ANALYST 06/20/24 Albuterol Sulfate (Albuterol Sulfate Hfa) 108 Mcg/Act Aer, 108 MCG IN TID PRN, #1 AER Prov:SHAHNAZ BERNARD IT SECURITY ANALYST 06/20/24 Prednisone (Prednisone) 20 Mg Tab, 20 MG PO DAILY for 5 Days, #5 MG Prov:SHAHNAZ BERNARD IT SECURITY ANALYST 06/20/24 Ibuprofen Micronized (Ibuprofen) 800 Mg Tab, 800 MG PO TID PRN, #30 TAB Prov:SHAHNAZ BERNARD IT SECURITY ANALYST 06/20/24 Allopurinol (ZYLOPRIM TABLET) 300 Mg Tb, 1 TAB PO DAILY, #30 TAB 5 Refills Prov:CRISTINO SOMMER MD 04/24/24 Clopidogrel Bisulfate (Plavix) 75 Mg Tab, 1 TAB PO DAILY, #90 TAB 1 Refill Prov:CRISTINO SOMMER MD 04/24/24 Atorvastatin Calcium (Lipitor) 20 Mg Tab, 1 TAB PO DAILY, #90 TAB 1 Refill Prov:CRISTINO SOMMER MD 04/24/24 Metoprolol Tartrate (Metoprolol Tartrate) 25 Mg Tab, 1 TAB PO BID, #180 TAB 1 Refill Prov:CRISTINO SOMMER MD 04/24/24 Lisinopril (Lisinopril) 20 Mg Tab, 1 TAB PO DAILY, #30 TAB 5 Refills Prov:CRISTINO SOMMER MD 04/24/24 Hydrocodone-Acetaminophen (Hydrocodone Bitartrate/AC 5-325 mg) 1 Tab Tab, 1 TAB PO QID PRN, #30 TAB Prov:CRISTINO SOMMER MD 04/24/24 Colchicine (Colchicine) 0.6 Mg Cap, 0.6 MG PO BID, #30 CAP Prov:CRISTINO SOMMER MD 04/24/24 Aspirin (Aspirin Adult Low Dose) 81 Mg Tab, 81 MG PO DAILY, #90 TAB Prov:CRISTINO SOMMER MD 04/24/24 Ranolazine (Ranolazine ER) 500 Mg Tab, 500 MG PO BID for 30 Days, #60 TAB Prov:ROB PAGE ULTRASOUND TECHNOLOGIST SONOGRAPHER 10/01/23 Valsartan (Valsartan) 80 Mg Tab, 80 MG PO DAILY for 30 Days, #30 TAB Prov:EMERY APARICIO RESIDENT 09/15/23 Isosorbide Mononitrate (ISMO TABLET) 20 Mg Tb, 20 MG PO BID for 30 Days, #60 TAB Prov:EMERY APARICIO RESIDENT 09/15/23 Acetaminophen (Acetaminophen) 500 Mg Tab, 500 MG PO QIDP for 30 Days, #120 TAB 0 Refills Prov:KAYLEE FERNANDEZ ULTRASOUND TECHNOLOGIST SONOGRAPHER 08/11/23 Reported Medications Carvedilol (Carvedilol) 12.5 Mg Tab, 1 TAB PO BID for 30 Days, #60 04/24/24 Meloxicam (Meloxicam) 15 Mg Tab, 1 TAB PO DAILY for 30 Days, #30 04/24/24 Fluticasone Propionate (Nasal) (Fluticasone Propionate Na) 50 Mcg/Act Spr, 1 SPRAY EACHNOSTRI BID PRN for 60 Days, #16 04/24/24 Ergocalciferol (Vitamin D (Ergocalciferol) 50,000 Unit Cap, 1 CAP PO QWEEKLY for 14 Days, #2 04/24/24 Amlodipine Besylate (Amlodipine Besylate) 5 Mg Tab, 1 TAB PO DAILY for 30 Days, #30 04/24/24 Hctz (Hydrochlorothiazide) 25 Mg Tab, 1 TAB PO DAILY 04/22/24 Simvastatin (Simvastatin) 40 Mg Tab, 1 TAB PO DAILY 08/30/23 Nabumetone (Nabumetone) 500 Mg Tab, 1 TAB PO BID PRN 08/30/23 Clopidogrel Bisulfate (CLOPIDOGREL) 75 Mg Tab, 1 TAB PO DAILY 08/28/23 Current Medications Current Medications Medications (Trade) Dose Ordered Sig/Siobhan Route PRN Reason Start Time Stop Time Status Last Admin Nitroglycerin (Ntrostat Sublingual) 0.4 mg Q5MINP PRN SL FOR CHEST PAIN 08/19/24 15:45 Morphine Sulfate 2 mg Q30M PRN IV FOR CHEST PAIN 08/19/24 15:45 Pantoprazole Sodium (Protonix Tablet) 40 mg BID@0600,1700 PO 08/19/24 17:00 08/20/24 05:58 Morphine Sulfate 2 mg Q4HPRN PRN IV SEVERE PAIN (7-10 PAIN SCALE) 08/19/24 15:45 08/20/24 08:12 Ondansetron HCl (Zofran) 4 mg Q6HPRN PRN IV NAUSEA / VOMITING 08/19/24 15:45 Acetaminophen (Tylenol Tablet) 650 mg Q4HP PRN PO MILD PAIN (1-3 PAIN SCALE) 08/19/24 15:45 Enoxaparin Sodium (Lovenox) 40 mg DAILY SC 08/20/24 10:00 08/20/24 10:01 Acetaminophen/ Hydrocodone Bitart ([place] 5/325MG Tab) 1 tab Q6HPRN PRN PO MODERATE PAIN (4-6 PAIN SCALE) 08/19/24 15:45 08/20/24 06:00 Albuterol (Ventolin Hfa) 108 mcg TID PRN IN SHORTNESS OF BREATH 08/19/24 16:00 UNV Aspirin (Ecotrin Enteric Coated Tablet) 81 mg DAILY PO 08/20/24 10:00 08/20/24 10:02 Atorvastatin Calcium (Lipitor) 20 mg HS PO 08/20/24 22:00 Carvedilol (Coreg Tablet) 12.5 mg BID PO 08/19/24 22:00 08/20/24 10:02 Clopidogrel Bisulfate (Plavix) 75 mg DAILY PO 08/20/24 10:00 08/20/24 10:01 Fluticasone Propionate (Flonase Kechi) 50 mcg BID EACHNOSTRI 08/19/24 22:00 08/20/24 10:07 Isosorbide Mononitrate (Ismo Tablet) 20 mg BID PO 08/19/24 22:00 08/20/24 10:02 Ranolazine (Ranexa ER) 500 mg BID PO 08/19/24 22:00 08/20/24 10:02 Colchicine (Colcrys) 0.6 mg BID PO 08/19/24 22:00 08/20/24 10:02 Albuterol (Ventolin Medneb) 2.5 mg Q8HPRN PRN NEB SHORTNESS OF BREATH 08/19/24 16:30 Review of Systems not obtained, pt out smoking and ama Vital Signs Vital Signs Date Time Temp Pulse Resp B/P (MAP) Pulse Ox O2 Delivery O2 Flow Rate FiO2 08/20/24 10:02 123/80 08/20/24 10:02 74 08/20/24 09:00 97.6 16 96 97.6 08/20/24 08:26 Room Air* 0 21 Physical Exam not obtained, pt out smoking and ama Labs/Diagnostic Data Labs Test 08/20/24 06:06 08/19/24 23:39 08/19/24 15:58 08/19/24 08:11 Range/Units Sodium Level 143 136-145 mmol/L Potassium Level 4.2 3.5-5.1 mmol/L Chloride Level 109 H 98-107 mmol/L Carbon Dioxide Level 26 20-31 mmol/L Anion Gap 8 5-15 Blood Urea Nitrogen 19 9-23 mg/dL Creatinine 1.21 0.700-1.30 mg/dL Glomerular Filtration Rate Calc 68 >90 mL/min BUN/Creatinine Ratio 15.7 10.0-20.0 Serum Glucose 103 74-106 mg/dL Calcium Level 9.7 8.7-10.4 mg/dL Magnesium Level 1.7 1.6-2.6 mg/dL Troponin I High Sensitivity 4 </=54 ng/L Urine Color Yellow Yellow Urine Clarity Clear Clear Urine pH 5.5 5.0-9.0 Urine Specific [place] 1.041 H 1.001-1.035 Urine Protein 1+ H Negative Urine Ketones Trace Negative Urine Blood Negative Negative /uL Urine Nitrite Negative Negative Urine Bilirubin Negative Negative Urine Urobilinogen 2 H Negative mg/dL Urine Leukocyte Esterase Negative Negative /uL Urine RBC 4 0 - 3 /hpf Urine Microscopic WBC 1 0-3 /HPF Urine Squamous Epithelial Cells Few <5 /hpf Urine Bacteria None seen None Seen /hpf Urine Mucus Few None Seen Urine Glucose Normal Normal mg/dL Urine Opiates Screen Pos NEGATIVE Urine Fentanyl Screen Pos NEGATIVE Urine Barbiturates Screen Neg NEGATIVE Urine Phencyclidine Screen Neg NEGATIVE Urine Amphetamines Screen Neg NEGATIVE Urine Benzodiazepines Screen Neg NEGATIVE Urine Cocaine Screen Neg NEGATIVE Urine Cannabinoids Screen Neg NEGATIVE D-Dimer, Quantitative < 0.19 0.0-0.49 mg/L FEU White Blood Count 10.7 4.4-10.8 10^3/uL Red Blood Count 5.25 4.5-5.90 10^6/uL Hemoglobin 15.8 13.5-17.5 g/dL Hematocrit 47.5 41.0-53.0 % Mean Corpuscular Volume 90.5 80.0-100.0 fL Mean Corpuscular Hemoglobin 30.1 28.0-32.0 pg Mean Corpuscular Hemoglobin Concent 33.2 32.0-36.0 g/dL Red Cell Distribution Width 13.2 11.8-14.3 % Platelet Count 258 140-450 10^3/uL Mean Platelet Volume 7.7 6.9-10.8 fL Neutrophils (%) (Auto) 79.9 37.0-80.0 % Lymphocytes (%) (Auto) 13.5 10.0-50.0 % Monocytes (%) (Auto) 5.9 0.0-12.0 % Eosinophils (%) (Auto) 0.4 0.0-7.0 % Basophils (%) (Auto) 0.3 0.0-2.0 % Neutrophils # (Auto) 8.5 1.6-8.6 10 ^3/uL Lymphocytes # (Auto) 1.4 0.4-5.4 10 ^3/uL Monocytes # (Auto) 0.6 0-1.3 10 ^3/uL Eosinophils # (Auto) 0 0-0.8 10 ^3/uL Basophils # (Auto) 0 0-0.2 10 ^3/uL Nucleated Red Blood Cells 0.0 % Assessment r/o acs cad htn obesity tobacco abuse non compliance Plan/Recommendation pt left to go smoke i reviewed his Last cath 2023, no intervention done cont his home meds, dapt acs ruled out pt needs to stop smoking anitha and lose weight to decrease future cv risk without this, he is at future risk of cv events HIGH risk pt had cath done in past 11 months, and negative trops, outpt fu pt left his room to smokeand not seen by me Plan discussed with: Other (rn) ITA GARCÍA MD August 20, 2024 12:46
--- NOTE | 2024-08-20 16:45 | DVHPN2 ---
Progress Note - Dictate Date Seen: August 20, 2024 Medical Necessity Reason Pt with a Central, PICC or Fol: No Subjective Clinically stable. Complains of sharp pain with taking deep breaths last few sec and goes away. Patient once again counseled and educated regarding quit smoking given his cardiac/coronary artery disease. vital signs Vital Sign Date Time Temp Pulse Resp B/P (MAP) Pulse Ox O2 Delivery O2 Flow Rate FiO2 08/20/24 13:00 98.1 96 15 128/77 (94) 96 98.1 08/20/24 08:26 Room Air* 0 21 Total Intake and Output 08/19/24 08/19/24 08/20/24 15:00 23:00 07:00 Intake Total 1670 ml Balance 1670 ml medications Current Medications Medications Dose Ordered Sig/Siobhan Route Start Time Stop Time Status Last Admin Dose Admin Nitroglycerin 0.4 mg Q5MINP PRN SL 08/19/24 15:45 Morphine Sulfate 2 mg Q30M PRN IV 08/19/24 15:45 Pantoprazole Sodium 40 mg BID@0600,1700 PO 08/19/24 17:00 08/20/24 05:58 40 MG Morphine Sulfate 2 mg Q4HPRN PRN IV 08/19/24 15:45 08/20/24 12:49 2 MG Ondansetron HCl 4 mg Q6HPRN PRN IV 08/19/24 15:45 Acetaminophen 650 mg Q4HP PRN PO 08/19/24 15:45 Enoxaparin Sodium 40 mg DAILY SC 08/20/24 10:00 08/20/24 10:01 40 MG Acetaminophen/ Hydrocodone Bitart 1 tab Q6HPRN PRN PO 08/19/24 15:45 08/20/24 06:00 1 TAB Albuterol 108 mcg TID PRN IN 08/19/24 16:00 UNV Aspirin 81 mg DAILY PO 08/20/24 10:00 08/20/24 10:02 81 MG Atorvastatin Calcium 20 mg HS PO 08/20/24 22:00 Carvedilol 12.5 mg BID PO 08/19/24 22:00 08/20/24 10:02 12.5 MG Clopidogrel Bisulfate 75 mg DAILY PO 08/20/24 10:00 08/20/24 10:01 75 MG Fluticasone Propionate 50 mcg BID EACHNOSTRI 08/19/24 22:00 08/20/24 10:07 50 MCG Isosorbide Mononitrate 20 mg BID PO 08/19/24 22:00 08/20/24 10:02 20 MG Ranolazine 500 mg BID PO 08/19/24 22:00 08/20/24 10:02 500 MG Colchicine 0.6 mg BID PO 08/19/24 22:00 08/20/24 10:02 0.6 MG Albuterol 2.5 mg Q8HPRN PRN NEB 08/19/24 16:30 objective Alert awake oriented x3. HEENT neck supple no JVD. Tenderness to palpation in the costochondral region anterior chest with a reproducible chest pain. Heart regular rate and rhythm S1-S2. Lungs fair air movement without rales wheezes. Abdomen obese soft nontender positive bowel sounds. Extremities no edema positive pulses. laboratory and microbiology Laboratory Tests 08/20/24 06:06 08/19/24 08:11 Test 08/20/24 06:06 Range/Units Serum Glucose 103 74-106 mg/dL Assessment/Plan He is seen and evaluated by cardiology recommended nicotine cessation. Patient's symptoms suggestive of costochondritis. We will continue current supportive care and treatment. Patient once again counseled and educated regarding his etiology of chest pain and given recent coronary angiogram he is advised to continue cardiac medications and highly encouraged to quit smoking to prevent recurrent cardiac problems including MS and sudden . Patient verbalized understanding of this and agree with the current care plan. Problems(with codes): (1) Chest pain (2) Chronic pain syndrome (3) Uncontrolled hypertension Plan discussed with: Patient ANIYAH PENNINGTON MD August 20, 2024 16:45
[2024-08-20] MEDS: ATORVASTATIN 20 MG TAB PO SCH (22:17)
[2024-08-21] VITALS (8 sets, daily range): BP systolic 113–153; BP diastolic 57–85; PULSE 55–89; RESP 12–18; TEMP 97.9–98.4; O2SAT 96–98
--- NOTE | 2024-08-21 08:20 | ECG ---
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
[2024-08-21] MEDS ORDERED: PANT40T PO (14:34)
[2024-08-21] MEDS ORDERED: LIDO4CRE EX (14:34)
--- NOTE | 2024-08-21 14:36 | DVHDS2 ---
Discharge Summary Date of Admission August 19, 2024 at 15:45 Date of Discharge: August 21, 2024 Labs/Diagnostic Data: Laboratory Results Test 08/20/24 06:06 08/19/24 23:39 08/19/24 15:58 08/19/24 08:11 Sodium Level 143 mmol/L (136-145) Potassium Level 4.2 mmol/L (3.5-5.1) Chloride Level 109 mmol/L (98-107) Carbon Dioxide Level 26 mmol/L (20-31) Anion Gap 8 (5-15) Blood Urea Nitrogen 19 mg/dL (9-23) Creatinine 1.21 mg/dL (0.700-1.30) Glomerular Filtration Rate Calc 68 mL/min (>90) BUN/Creatinine Ratio 15.7 (10.0-20.0) Serum Glucose 103 mg/dL (74-106) Calcium Level 9.7 mg/dL (8.7-10.4) Magnesium Level 1.7 mg/dL (1.6-2.6) Troponin I High Sensitivity 4 ng/L (</=54) Urine Color Yellow (Yellow) Urine Clarity Clear (Clear) Urine pH 5.5 (5.0-9.0) Urine Specific [place] 1.041 (1.001-1.035) Urine Protein 1+ (Negative) Urine Ketones Trace (Negative) Urine Blood Negative /uL (Negative) Urine Nitrite Negative (Negative) Urine Bilirubin Negative (Negative) Urine Urobilinogen 2 mg/dL (Negative) Urine Leukocyte Esterase Negative /uL (Negative) Urine RBC 4 /hpf (0 - 3) Urine Microscopic WBC 1 /HPF (0-3) Urine Squamous Epithelial Cells Few /hpf (<5) Urine Bacteria None seen /hpf (None Seen) Urine Mucus Few (None Seen) Urine Glucose Normal mg/dL (Normal) Urine Opiates Screen Pos (NEGATIVE) Urine Fentanyl Screen Pos (NEGATIVE) Urine Barbiturates Screen Neg (NEGATIVE) Urine Phencyclidine Screen Neg (NEGATIVE) Urine Amphetamines Screen Neg (NEGATIVE) Urine Benzodiazepines Screen Neg (NEGATIVE) Urine Cocaine Screen Neg (NEGATIVE) Urine Cannabinoids Screen Neg (NEGATIVE) D-Dimer, Quantitative < 0.19 mg/L FEU (0.0-0.49) White Blood Count 10.7 10^3/uL (4.4-10.8) Red Blood Count 5.25 10^6/uL (4.5-5.90) Hemoglobin 15.8 g/dL (13.5-17.5) Hematocrit 47.5 % (41.0-53.0) Mean Corpuscular Volume 90.5 fL (80.0-100.0) Mean Corpuscular Hemoglobin 30.1 pg (28.0-32.0) Mean Corpuscular Hemoglobin Concent 33.2 g/dL (32.0-36.0) Red Cell Distribution Width 13.2 % (11.8-14.3) Platelet Count 258 10^3/uL (140-450) Mean Platelet Volume 7.7 fL (6.9-10.8) Neutrophils (%) (Auto) 79.9 % (37.0-80.0) Lymphocytes (%) (Auto) 13.5 % (10.0-50.0) Monocytes (%) (Auto) 5.9 % (0.0-12.0) Eosinophils (%) (Auto) 0.4 % (0.0-7.0) Basophils (%) (Auto) 0.3 % (0.0-2.0) Neutrophils # (Auto) 8.5 10 ^3/uL (1.6-8.6) Lymphocytes # (Auto) 1.4 10 ^3/uL (0.4-5.4) Monocytes # (Auto) 0.6 10 ^3/uL (0-1.3) Eosinophils # (Auto) 0 10 ^3/uL (0-0.8) Basophils # (Auto) 0 10 ^3/uL (0-0.2) Nucleated Red Blood Cells 0.0 % Other Laboratory Tests 08/20/24 06:06 08/19/24 08:11 Final Diagnosis/Problems List chest pain due to costochondritis, nicotine smoking, htn, cad Discharge Disposition: Home Discharge Instruct/Medications Diet: Consistent carbohydrate, Cardiac 2g Na,low cholest Activity: No Restrictions, As Tolerated Follow Up/Referral: Dr.Mehta Gavin cardiology 2 weeks and PCP next week Medications: as prescribed and home medications Discharge Statement: "Patient was advised to return to the ER or call 911 if any headaches, dizziness, shortness of breath, chest pain, abdominal pain, bleeding, fevers, or worsening of medical condition. Patient was counseled about treatment plan, medications, possible side effects, patientverbalized understanding. All questions were answered to the best of my ability. This discharge took greater then 30 minutes in planning, reviewing documentation, counseling the patient, and discussing with other team members." ASSESSMENT ASSESSMENT Assessment chest pain due to costochondritis, nicotine smoking, htn, cad ANIYAH PENNINGTON MD August 21, 2024 14:36
== END 2024-08-21 16:30 | disposition home or self-care (01) | DRG 203 ==
LOC: ER 07:56 → OVERFLOW 15:45 → TELE-WESTW 23:05
PROVIDERS: ADMIT Hospitalist; ATTEND Hospitalist
DX: M94.0 Chondrocostal junction syndrome [Tietze] (principal); E66.9 Obesity, unspecified; I25.119 Atherosclerotic heart disease of native coronary artery with unspecified angina pectoris; G89.4 Chronic pain syndrome; I10 Essential (primary) hypertension; Z79.899 Other long term (current) drug therapy; Z79.1 Long term (current) use of non-steroidal anti-inflammatories (NSAID); Z79.891 Long term (current) use of opiate analgesic; Z79.82 Long term (current) use of aspirin; Z91.018 Allergy to other foods; Z82.49 Family history of ischemic heart disease and other diseases of the circulatory system; Z91.199 Patient's noncompliance with other medical treatment and regimen due to unspecified reason; Z72.0 Tobacco use; Z68.35 Body mass index [BMI] 35.0-35.9, adult
CPT/HCPCS: 36415; 71045; 80048; 80307; 81001; 83735; 84484; 85379; 93005; 99291; G0378

== ENCOUNTER 2024-08-25 21:19 | Emergency (ER) | payer MEDICAID ==
[~2024-08-25] VITALS: Ht 180.3 cm; Wt 100.0 kg
[2024-08-25 21:19] VITALS: BP 122/82; RESP 16; TEMP 97.8; O2SAT 98
[~2024-08-25 21:19] MED LIST changes: -AMLO1TAB22 PO; -AZITTAB PO; +LIDO4CRE EX; -MELO15TA29 PO; +PANT40T PO; -PRED20TA2 PO; -VALS1TAB57 PO
[2024-08-25 21:30] VITALS: PULSE 107
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
[2024-08-25] MEDS ORDERED: NITROGLYCERIN 0.4 MG SL TAB SL ONE (21:45)
--- NOTE | 2024-08-26 07:16 | ECG ---
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
== END 2024-08-25 22:20 | disposition left against medical advice (07) ==
LOC: ER 21:19 → EDBD 21:19 → EDUNIT# 21:19 → ER 22:20
DX: I48.91 Unspecified atrial fibrillation (principal); R07.89 Other chest pain; I10 Essential (primary) hypertension; I25.2 Old myocardial infarction; E78.5 Hyperlipidemia, unspecified; Z79.82 Long term (current) use of aspirin; Z79.899 Other long term (current) drug therapy; Z88.8 Allergy status to other drugs, medicaments and biological substances
CPT/HCPCS: 93005

== ENCOUNTER 2024-10-26 06:51 | Inpatient (IN) | payer MEDICAID ==
[~2024-10-26] VITALS: Ht 182.9 cm; Wt 118.7 kg
--- NOTE | 2024-10-26 07:03 | ECG ---
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
--- NOTE | 2024-10-26 07:32 | ED.PDOC ---
HPI Comments 64 y/o M, BIBA, with PMHx of [place], HTN, and HLD presents to the ED for CC of chest pain. EMS reports, patient is coming from home where he c/o chest pain q8rtcpi following, a mechanical fall at 0230 earlier this morning (10/26/24). Per EMS, patient was hypertensive in route to the ED with a systolic blood pressure in the 190's-200's; patient was given 324mg of Aspirin with symptoms temporarily resolving . Patient states, chest pain to be substernal and pressure like radiating to his back. Following trauma, patient c/o neck and lower back pain which was then followed by cardiac symptoms. Patient denies nausea, vomiting, headache, or extremity numbness. No other symptoms or modifying factors present at this time. Chief Complaint: Fall Injury Time Seen by MD: 07:00 Primary Care Provider: NONE Reviewed Notes: Nurses Notes, Instruction Assistant Principal Notes, Medications, Allergies Allergies: Coded Allergies: Onion (Verified Allergy, Mild, 08/19/24) ITCHING, HIVES No Known Drug Allergy (Verified Allergy, Unknown, 08/02/23) Uncoded Allergies: HAYNES PEPPERS (Allergy, Mild, 08/19/24) ITCHING, HIVES PEACHES (Allergy, Mild, 08/19/24) HIVES, ITCHING Home Meds Active Scripts Lidocaine HCl (Aspercreme/Lidocaine) 4 % Cre, 4 % EX BID, #1 CRE apply to anterior chest/ribs for sharp pain Prov:ANIYAH PENNINGTON MD 08/21/24 Pantoprazole Sodium Sesquihydr (Pantoprazole Sodium) 40 Mg Tab, 40 MG PO DAILY, #30 TAB Prov:ANIYAH PENNINGTON MD 08/21/24 Albuterol Sulfate (Albuterol Sulfate Hfa) 108 Mcg/Act Aer, 108 MCG IN TID PRN, #1 AER Prov:SHAHNAZ BERNARDP 06/20/24 Ibuprofen Micronized (Ibuprofen) 800 Mg Tab, 800 MG PO TID PRN, #30 TAB Prov:SHAHNAZ BERNARD 25 Allopurinol (ZYLOPRIM TABLET) 300 Mg Tb, 1 TAB PO DAILY, #30 TAB 5 Refills Prov:CRISTINO SOMMER MD 04/24/24 Clopidogrel Bisulfate (Plavix) 75 Mg Tab, 1 TAB PO DAILY, #90 TAB 1 Refill Prov:CRISTINO SOMMER MD 04/24/24 Atorvastatin Calcium (Lipitor) 20 Mg Tab, 1 TAB PO DAILY, #90 TAB 1 Refill Prov:CRISTINO SOMMER MD 04/24/24 Metoprolol Tartrate (Metoprolol Tartrate) 25 Mg Tab, 1 TAB PO BID, #180 TAB 1 Refill Prov:CRISTINO SOMMER MD 04/24/24 Lisinopril (Lisinopril) 20 Mg Tab, 1 TAB PO DAILY, #30 TAB 5 Refills Prov:CRISTINO SOMMER MD 04/24/24 Hydrocodone-Acetaminophen (Hydrocodone Bitartrate/AC 5-325 mg) 1 Tab Tab, 1 TAB PO QID PRN, #30 TAB Prov:CRISTINO SOMMER MD 04/24/24 Colchicine (Colchicine) 0.6 Mg Cap, 0.6 MG PO BID, #30 CAP Prov:CRISTINO SOMMER MD 04/24/24 Aspirin (Aspirin Adult Low Dose) 81 Mg Tab, 81 MG PO DAILY, #90 TAB Prov:CRISTINO SOMMER MD 04/24/24 Ranolazine (Ranolazine ER) 500 Mg Tab, 500 MG PO BID for 30 Days, #60 TAB Prov:ROB PAGE CAPSULE FILLER 10/01/23 Isosorbide Mononitrate (ISMO TABLET) 20 Mg Tb, 20 MG PO BID for 30 Days, #60 TAB Prov:EMERY APARICIO 09/15/23 Acetaminophen (Acetaminophen) 500 Mg Tab, 500 MG PO QIDP for 30 Days, #120 TAB 0 Refills Prov:KAYLEE FERNANDEZ CAPSULE FILLER 08/11/23 Reported Medications Carvedilol (Carvedilol) 12.5 Mg Tab, 1 TAB PO BID for 30 Days, #60 04/24/24 Fluticasone Propionate (Nasal) (Fluticasone Propionate Na) 50 Mcg/Act Spr, 1 SPRAY EACHNOSTRI BID PRN for 60 Days, #16 04/24/24 Ergocalciferol (Vitamin D (Ergocalciferol) 50,000 Unit Cap, 1 CAP PO QWEEKLY for 14 Days, #2 04/24/24 Hctz (Hydrochlorothiazide) 25 Mg Tab, 1 TAB PO DAILY 04/22/24 Simvastatin (Simvastatin) 40 Mg Tab, 1 TAB PO DAILY 08/30/23 Nabumetone (Nabumetone) 500 Mg Tab, 1 TAB PO BID PRN 08/30/23 Clopidogrel Bisulfate (CLOPIDOGREL) 75 Mg Tab, 1 TAB PO DAILY 08/28/23 Information Source: Patient, Emergency Med Personnel Mode of Arrival: Ambulatory Severity: Moderate Timing: Hours Duration: Since onset Prehospital treatment: None Location: Substernal Radiation: Back Quality: Pressure Onset: Other (FOLLOWING TRAUMA) Cardiac Risk Factors: Hyperlipidemia, HTN PE Risk Factors: None History of: [place] Modifying Factors: Nothing Associated Signs and Symptoms: Back Pain Past Medical History PAST MEDICAL HISTORY: High Lipids, HTN, [place] Surgical History: PTCA Family History Family History: Reviewed,noncontributory to illness, Unknown Social History Smoker: Non-Smoker Alcohol: Denies ETOH Use Drugs: Denies Drug Use Lives In: Home Constitutional: denies: chills, diaphoresis, fatigue, fever, malaise, sweats, weakness, others EENTM: denies: blurred vision, double vision, ear bleeding, ear discharge, ear drainage, ear pain, ear ringing, eye pain, eye redness, hearing loss, mouth pain, mouth swelling, nasal discharge, nose bleeding, nose congestion, nose pain, photophobia, tearing, throat pain, throat swelling, voice changes, others Respiratory: denies: cough, hemoptysis, orthopnea, SOB at rest, shortness of breath, SOB with excertion, stridor, wheezing, others Cardiovascular: reports: chest pain; denies: dizzy spells, diaphoresis, Dyspnea on exertion, edema, irregular heart beat, left arm pain, lightheadedness, palpitations, PND, syncope, others Gastrointestinal: denies: abdomen distended, abdominal pain, blood streaked bowels, constipated, diarrhea, dysphagia, difficulty swallowing, hematemesis, melena, nausea, poor appetite, poor fluid intake, rectal bleeding, rectal pain, vomiting, others Genitourinary: denies: burning, dysuria, flank pain, frequency, hematuria, incontinence, penile discharge, penile sore, pain, testicle pain, testicle swelling, urgency, others Neurological: reports: dizziness; denies: fainting, headache, left sided numbness, left sided weakness, numbness, paresthesia, pre-existing deficit, right sided numbness, right sided weakness, seizure, speech problems, tingling, tremors, weakness, others Musculoskeletal: reports: back pain, neck pain; denies: gout, joint pain, joint swelling, muscle pain, muscle stiffness, others Integumetry: denies: bruises, change in color, change in hair/nails, dryness, laceration, lesions, lumps, rash, wounds, others Allergic/Immunocompromised: denies: Difficulty Healing, Frequent Infections, Hives, Itching, others Hematologic/Lymphatic: denies: anemia, blood clots, easy bleeding, easy bruising, swollen glands, others Endocrine: denies: excessive hunger, excessive sweating, excessive thirst, excessive urination, flushing, intolerance to cold, intolerance to heat, unexplained weight gain, unexplained weight loss, others Psychiatric: denies: anxiety, bipolar disorder, depression, hopeless, panic disorder, schizophrenia, sleepless, suicidal, others All Other Systems: Reviewed and Negative Physical Exam General Appearance: No Apparent Distress, Normal HEENT: Normal ENT Inspection, Pharynx Normal Neck: Full Range of Motion, Non-Tender, Normal, Normal Inspection Respiratory: Chest Non-Tender, Lungs Clear, No Accessory Muscle Use, No Respiratory Distress, Normal Breath Sounds Cardiovascular: No Edema, No Murmur, No Gallop, Normal Peripheral Pulses, Regular Rate/Rhythm Breast Exam: Deferred Gastrointestinal: No Organomegaly, Non Tender, No Pulsatile Mass, Normal Bowel Sounds, Soft Genitalia: Deferred Pelvic: Deferred Rectal: Deferred Extremities: No calf tenderness, Normal capillary refill, Normal inspection, Normal range of motion, Non-tender, No pedal edema Musculoskeletal : Apperance: Normal Neurologic: Alert, meal room hand II-XII nml as Tested, No Motor Deficits, Normal Affect, Normal Mood, No Sensory Deficits Cerebellar Function: Normal Reflexes: Normal Skin: Dry, Normal Color, Warm Lymphatic: No Adenopathy Was a procedure done? Was a procedure done?: No CP Differential Dx Differential Diagnosis: Anxiety / Panic Attack Differential Diagnosis: HTN Essential, HTN Accelerated Differential Diagnosis: Angina, Chest Wall Pain, Costochondritis X-Ray, Labs, Meds, VS Vital Signs Date Time Temp Pulse Resp B/P (MAP) Pulse Ox O2 Delivery O2 Flow Rate FiO2 7/10/25 09:30 67 13 162/80 (107) 96 10/26/24 08:35 67 15 155/81 10/26/24 08:19 98.3 70 14 155/95 (115) 97 98.3 10/26/24 08:19 70 14 97 Room Air* 0 21 10/26/24 08:02 70 17 152/82 10/26/24 06:59 84 10/26/24 06:59 98.6 84 16 204/103 (136) 98 98.6 10/26/24 06:53 76 Lab Test 10/26/24 08:43 10/26/24 07:37 Range/Units Troponin I High Sensitivity Pending 3 L </=54 ng/L White Blood Count 8.8 4.4-10.8 10^3/uL Red Blood Count 5.36 4.5-5.90 10^6/uL Hemoglobin 16.3 13.5-17.5 g/dL Hematocrit 47.9 41.0-53.0 % Mean Corpuscular Volume 89.3 80.0-100.0 fL Mean Corpuscular Hemoglobin 30.4 28.0-32.0 pg Mean Corpuscular Hemoglobin Concent 34.0 32.0-36.0 g/dL Red Cell Distribution Width 13.5 11.8-14.3 % Platelet Count 208 140-450 10^3/uL Mean Platelet Volume 7.7 6.9-10.8 fL Neutrophils (%) (Auto) 74.9 37.0-80.0 % Lymphocytes (%) (Auto) 15.9 10.0-50.0 % Monocytes (%) (Auto) 7.2 0.0-12.0 % Eosinophils (%) (Auto) 1.6 0.0-7.0 % Basophils (%) (Auto) 0.4 0.0-2.0 % Neutrophils # (Auto) 6.6 1.6-8.6 10 ^3/uL Lymphocytes # (Auto) 1.4 0.4-5.4 10 ^3/uL Monocytes # (Auto) 0.6 0-1.3 10 ^3/uL Eosinophils # (Auto) 0.1 0-0.8 10 ^3/uL Basophils # (Auto) 0 0-0.2 10 ^3/uL Nucleated Red Blood Cells 0.1 % Sodium Level 142 136-145 mmol/L Potassium Level 3.5 3.5-5.1 mmol/L Chloride Level 108 H 98-107 mmol/L Carbon Dioxide Level 24 20-31 mmol/L Anion Gap 10 5-15 Blood Urea Nitrogen 14 9-23 mg/dL Creatinine 1.01 0.700-1.30 mg/dL Glomerular Filtration Rate Calc 84 >90 mL/min BUN/Creatinine Ratio 13.9 10.0-20.0 Serum Glucose 102 74-106 mg/dL Calcium Level 10.1 8.7-10.4 mg/dL B-Type Natriuretic Peptide 45.63 0-100 pg/mL Current Medications Medications (Trade) Dose Ordered Sig/Siobhan Route Start Time Stop Time Status Last Admin Ondansetron HCl (Zofran) 4 mg ONCE ONCE IV 10/26/24 07:15 10/26/24 07:16 DC 10/26/24 08:00 Morphine Sulfate 4 mg ONCE ONCE IV 10/26/24 07:15 10/26/24 07:16 DC 10/26/24 08:02 Acetaminophen/ Hydrocodone Bitart ([place] 5/325MG Tab) 1 tab ONCE ONCE PO 10/26/24 09:15 10/26/24 09:16 DC 10/26/24 09:26 [place] [address] Ph: [phone] DIAGNOSTIC IMAGING Diagnostic Imaging Report : [id number] Signed PATIENT: RUKHSANA DELATORRECCT: [id number] UNIT: [id number] : 1960 LOC: ER ROOM / BED: / AGE / SEX: 64 / M ADM STATUS: REG ER SERVICE 0659 ORDERING PHYSICIAN: JEZ DE JESUS MD PROCEDURE(s): CXRP - CHEST PORTABLE REASON: chest pain ORDER NUMBER(s): [id number], ACCESSION NUMBER(s): [id number] CLINICAL INFORMATION: chest pain. TECHNIQUE: Single AP portable chest radiograph was obtained. COMPARISON: XY CHEST PORTABLE on DOS: 08/19/24, XY CHEST XRAY 1 VIEW on DOS: 06/20/24, XY CHEST PORTABLE on DOS: 04/22/24 FINDINGS: Lungs: Mild atelectasis in the left lung base. No focal consolidation. No pneumothorax or pleural effusion. Cardiac: Heart size is within normal limits. Pulmonary vasculature: Unremarkable. Mediastinum/justin: Unremarkable. Bones: No acute osseous abnormality identified. Other: No other significant findings. IMPRESSION: No evidence of acute disease in the chest. ATED BY: CHIP GREENE DO DICTATED DATE/TIME: 10/26/24730 SIGNED BY: CHIP GREENE DO SIGNED DATE/TIME: 10/26/24730 CC: [place] [id number] Ph: [phone] DIAGNOSTIC IMAGING Diagnostic Imaging Report : [id number] Signed PATIENT: RUKHSANA DELATORRECCT: [id number] UNIT: [id number] : 1960 LOC: ER ROOM / BED: / AGE / SEX: 64 / M ADM STATUS: REG ER SERVICE 6 ORDERING PHYSICIAN: JEZ DE JESUS MD PROCEDURE(s): HWOCT - HEAD WITHOUT CONTRAST REASON: htn headache ORDER NUMBER(s): [id number], ACCESSION NUMBER(s): [id number] EXAM: CT HEAD WITHOUT CONTRAST INDICATION: Htn headache TECHNIQUE: CT of the head without intravenous contrast. Coronal and sagittal reformatted images are submitted. Radiation Dose : 1. Head: CT Dose: CTDI volume is 66.5 mGy. Dose-length product is 1175.5 mGy*cm The dose indicators for CT are the volume Computed Tomography (CT) Dose Index (CTDIvol) and the Dose Length Product (DLP), and are measured in units of mGy and mGy-cm, respectively. These indicators are not patient dose, but values generated from the CT scanner acquisition factors. The report includes radiation exposure data for exposures received during this examination. All CT scans at this medical facility are performed using dose modulation techniques as appropriate to a performed exam including the following: Automated exposure control was utilized; adjustment of the MA and/or KV according to patient size; and use of iterative reconstruction technique. COMPARISON: CT HEAD WITHOUT CONTRAST on DOS: 09/30/23 FINDINGS: There is no evidence of acute intracranial hemorrhage, extra-axial collection, mass effect, midline shift, herniation or hydrocephalus. The ventricles, sulci and cisterns are age appropriate. The toro-white differentiation is intact. The visualized paranasal sinuses and mastoid air cells are clear. No depressed calvarial fracture. The surrounding soft tissues are unremarkable. IMPRESSION: 1. No evidence of acute intracranial abnormality. ATED BY: JAMIN EDMOND MD DICTATED DATE/TIME: 10/26/24839 SIGNED BY: JAMIN EDMOND MD SIGNED DATE/TIME: 10/26/24839 CC: Time of 1ST Reevaluation: 07:30 Reevaluation 1ST: Unchanged Patient Education/Counseling: Diagnosis, Treatment Family Education/Counseling: No Family Present SEPSIS Sepsis Screen Date sepsis recognized/suspect: Oct 26, 2024 Time Sepsis recognized/suspect: 649 Recent Procedure: No On Antibiotic Therapy: No Respiratory Rate >20: No Heart Rate >90: No Temp<36 C (96.8 F) or >38.3 C: No SBP <90 or MAP <65 mmHG: No New Acute Mental Status Change: No Is the patient on CPAP, BIPAP,: No Physician Orders Electrocardigram (10/26/24 07:55) Electrocardigram (10/26/24 09:55) Chest Portable (10/26/24 06:59) Troponin-I Hs (10/26/24 07:59) Troponin-I Hs (10/26/24 09:59) Head Without Contrast (10/26/24 07:07) Vital Signs Date Time Temp Pulse Resp B/P (MAP) Pulse Ox O2 Delivery O2 Flow Rate FiO2 10/26/24 09:30 67 13 162/80 (107) 96 10/26/24 08:35 67 15 155/81 10/26/24 08:19 98.3 70 14 155/95 (115) 97 98.3 10/26/24 08:19 70 14 97 Room Air* 0 21 10/26/24 08:02 70 17 152/82 10/26/24 06:59 84 10/26/24 06:59 98.6 84 16 204/103 (136) 98 98.6 10/26/24 06:53 76 Laboratory Tests Test 10/26/24 07:37 White Blood Count 8.8 10^3/uL (4.4-10.8) Medications Medications Dose Ordered Sig/Siobhan Route Start Time Stop Time Status Last Admin Dose Admin Acetaminophen/ Hydrocodone Bitart 1 tab ONCE ONCE PO 10/26/24 09:15 10/26/24 09:16 DC 10/26/24 09:26 Morphine Sulfate 4 mg ONCE ONCE IV 10/26/24 07:15 10/26/24 07:16 DC 10/26/24 08:02 Ondansetron HCl 4 mg ONCE ONCE IV 10/26/24 07:15 10/26/24 07:16 DC 10/26/24 08:00 Departure 1 Departure Time of Disposition: 09:41 (Patient presented with chest pain that was concerning for possible STEMI, ACS, PE, Pneumonia, Muscle Strain, COPD, Dissection. Data: 1. I ordered and reviewed the result of at least 3 labs including a CBC, BMP, and Troponin. 2. I independently interpreted the following tests: EKG which shows sinus arrhythmia and Chest X-ray which shows benign chest.Risk:This patient has a high risk of morbidity due to further diagnostic testing or treatment and may suffer from an acute cardiac or respiratory disorder. Workup reveals concern for ACS and patient should be admitted for further workup and possible expert consultation. ) Impression: Primary Impression: Acute chest pain Additional Impression: Fall Qualified Codes: W19.XXXA - Unspecified fall, initial encounter Disposition: ADMITTED INPATIENT Admit to: Med Surg Condition: Serious Critical Care Note Critical Care Time?: Yes Critical care comment: Acute chest pain Authorized and Performed by: Jez De Jesus MD Total critical care time: Approximately 39 minutes Due to a high probability of clinically significant, life threatening deterioration, the patient required my highest level of preparedness to intervene emergently and I personally spent this critical care time directly and personally managing the patient. This critical care time included obtaining a history; examining the patient; pulse oximetry; ordering and review of studies; arranging urgent treatment with development of a management plan; evaluation of patient's response to treatment; frequent reassessment; and, discussions with other providers. This critical care time was performed to assess and manage the high probability of imminent, life-threatening deterioration that could result in multi-organ failure. It was exclusive of separately billable procedures and treating other patients and teaching time. Please see my other sections and the rest of the note for further information on patient assessment and treatment. Stability Stability form required: No Heart Score Heart Score: Heart Score Response (Comments) Value History Moderate Suspicious 1 EKG N/A 0 Age 45-64 1 Risk Factors 1 or 2 risk factors 1 Troponin N/A 0 Total 3 I personally scribed for JEZ DE JESUS MD ([email or web address]) on 10/26/24 at 07:32. Electronically submitted by Lakeshia Goodwin ([email or web address]). I personally scribed for JEZ DE JESUS MD ([email or web address]) on 10/26/24 at 08:30. Electronically submitted by Lakeshia Goodwin ([employer]). I personally scribed for JEZ DE JESUS MD ([email or web address]) on 10/26/24 at 09:03. Electronically submitted by Lakeshia Goodwin ([employer]). JEZ DE JESUS MD Oct 26, 2024 07:32
[2024-10-26 07:58] LABS: Hematocrit 47.9 % (41.0-53.0); Hemoglobin 16.3 g/dL (13.5-17.5); Mean Corpuscular Hemoglobin 30.4 pg (28.0-32.0); Mean Corpuscular Volume 89.3 fL (80.0-100.0); Nucleated Red Blood Cells % 0.1 %
[2024-10-26] MEDS: ONDANSETRON HCL 4 MG/2 ML VIAL IV ONE (08:00)
[2024-10-26] MEDS: MORPHINE SULFATE 4 MG/ML SYR/VIAL IV ONE (08:02)
[2024-10-26 08:06] LABS: Sodium 142 mmol/L (136-145)
[2024-10-26 08:07] LABS: Anion Gap 10 (5-15); Calcium 10.1 mg/dL (8.7-10.4); Carbon Dioxide 24 mmol/L (20-31)
[2024-10-26 08:12] LABS: BUN/Creatinine Ratio 13.9 (10.0-20.0); Blood Urea Nitrogen 14 mg/dL (9-23); Glucose 102 mg/dL (74-106)
[2024-10-26 08:14] LABS: Chloride 108 mmol/L (98-107); Potassium 3.5 mmol/L (3.5-5.1)
[2024-10-26 08:19] VITALS: PULSE 70; RESP 14; O2SAT 97
--- NOTE | 2024-10-26 08:42 | DVH ---
EXAM: CT HEAD WITHOUT CONTRAST INDICATION: Htn headache TECHNIQUE: CT of the head without intravenous contrast. Coronal and sagittal reformatted images are s ubmitted. Radiation Dose : 1. Head: CT Dose: CTDI volume is 66.5 mGy. Dose-length product is 1175.5 mGy*cm The dose indicators for CT are the volume Computed Tomography (CT) Dose Index (CTDIvol) and the Dose Length Product (DLP), and are measured in units of mGy and mGy-cm, respectively. These indicators are not patient dose, but values generated from the CT scanner acquisition factors. The report includes radiation exposure data for exposures received during this examination. All CT scans at this medical facility are performed using dose modulation techniques as appropriate to a performed exam including the following: Automated exposure control was utilized; adjustment of the MA and/or KV according to patient size; and use of iterative reconstruction technique. COMPARISON: CT HEAD WITHOUT CONTRAST on DOS: 09/30/23 FINDINGS: There is no evidence of acute intracranial hemorrhage, extra-axial collection, mass effect, midline s hift, herniation or hydrocephalus. The ventricles, sulci and cisterns are age appropriate. The toro-white differentiation is intact. The visualized paranasal sinuses and mastoid air cells are clear. No depressed calvarial fracture. The surrounding soft tissues are unremarkable. IMPRESSION: 1. No evidence of acute intracranial abnormality.
[2024-10-26] MEDS: HYDROcodone-ACET 5/325MG TAB PO ONE (09:26)
[2024-10-26] MEDS ORDERED: MORPHINE SULFATE INJ 2 MG/ml SYRG IV PRN (11:15)
[2024-10-26] MEDS ORDERED: ONDANSETRON HCL 4 MG/2 ML VIAL IV PRN (11:15)
[2024-10-26] MEDS ORDERED: MORPHINE SULFATE 4 MG/ML SYR/VIAL IV PRN (11:15)
[2024-10-26] MEDS ORDERED: NITROGLYCERIN 0.4 MG SL TAB SL PRN ×2 (11:15)
[2024-10-26] MEDS ORDERED: ERGOCALCIFEROL 50,000 UNIT(1.25MG) CAP PO SCH (11:45)
--- NOTE | 2024-10-26 11:55 | DVHHP2 ---
History of Present Illness Reason for Visit: Chest pain status post fall History of Present Illness Kyle Santiago is a 64-year-old male with past medical history of CAD status post PTCA with 10 stents placed and most recent in 2011 at [place], [place], hypertension, hyperlipidemia, gout, right foot surgery, and right knee surgery who presents to the ED with chest pain status post fall at 2:30 a.m. yesterday while at home. Patient reports that the last few days his blood pressure has been high and he has been having headaches. He also reports dizziness while he was at home since yesterday. Patient reports that he fell landed on his buttocks and back of his head around 230 this morning with n egative loss of consciousness. He states that the time he was just standing up at the time. Patient is currently complaining 8/10 chest pain feels like someone is standing on his chest intermittent in nature. He is also complaining of lower back pain. He states that activity makes it worse. Patient reports that he is compliant with his medications. He denies any smoking, drug use, or alcohol use. Patient denies any shortness of breath, fever chills, lightheadedness, weakness, abdominal pain, nausea, vomiting, diarrhea, urinary symptoms, recent sick contacts, recent travels, or recent ingestion of spoiled food. Upon examination patient is pointing to the center of his chest regarding his chest pain and states it does not radiate anywhere. Patient reports that his right knee pops and he takes Carroll for pain management. Patient reports that he last saw his primary care physician 1 week ago. Cardiovascular: CAD, HTN, [place], hyperipidemia Rheumatologic: Gout Past Surgical History: Other (Right foot surgery, right knee surgery, and PTCA with 10 stents) Family History: Hypertension, Other (Mom with hypertension) Smoke: No ALCOHOL: none Drugs: None Domestic Violence: Neg Review of Systems Constitutional: Yes: Other (Headache) Cardiovascular: Chest Pain Allergies: Coded Allergies: Onion (Verified Allergy, Mild, 08/19/24) ITCHING, HIVES No Known Drug Allergy (Verified Allergy, Unknown, 08/02/23) Uncoded Allergies: HAYNES PEPPERS (Allergy, Mild, 08/19/24) ITCHING, HIVES PEACHES (Allergy, Mild, 08/19/24) HIVES, ITCHING Medications Current Medications Medications Dose Ordered Sig/Siobhan Route Start Time Stop Time Status Last Admin Dose Admin Aspirin 81 mg DAILY PO 10/27/24 10:00 UNV Atorvastatin Calcium 40 mg HS PO 10/26/24 22:00 UNV Morphine Sulfate 2 mg Q30MP PRN IV 10/26/24 11:15 UNV Acetaminophen 650 mg Q6HP PRN PO 10/26/24 11:15 UNV Nitroglycerin 0.4 mg Q5MINP PRN SL 10/26/24 11:15 UNV Ondansetron HCl 4 mg Q4HP PRN IV 10/26/24 11:15 UNV Nitroglycerin 0.4 mg Q5MINP PRN SL 10/26/24 11:15 UNV Morphine Sulfate 2 mg Q30M PRN IV 10/26/24 11:15 UNV Carvedilol 12.5 mg BID PO 10/26/24 22:00 UNV Clopidogrel Bisulfate 75 mg DAILY PO 10/27/24 10:00 UNV Ergocalciferol 50,000 unit QWEEKLY PO 10/26/24 11:45 UNV Hydrochlorothiazide 25 mg DAILY PO 10/27/24 10:00 UNV Acetaminophen/ Hydrocodone Bitart 1 tab QID PRN PO 10/26/24 11:45 UNV Isosorbide Mononitrate 20 mg BID PO 10/26/24 22:00 UNV Lisinopril 20 mg DAILY PO 10/27/24 10:00 UNV Pantoprazole Sodium 40 mg DAILY PO 10/27/24 10:00 UNV Patient Own Medication 1 tab DAILY PO 10/27/24 10:00 UNV Patient Own Medication 0.6 mg BID PO 10/26/24 22:00 UNV Exam Vital Signs Vital Signs Date Time Temp Pulse Resp B/P (MAP) Pulse Ox O2 Delivery O2 Flow Rate FiO2 10/26/24 11:00 66 18 134/74 (94) 9 10/26/24 08:19 98.3 98.3 10/26/24 08:19 Room Air* 0 21 General Appearance: Alert, Oriented X3, Cooperative, No acute distress HEENT: Atraumatic, PERRLA, EOMI, Mucous membr. moist/pink Respiratory: Clear to auscultation, Normal air movement Cardiovascular: Regular rate, Normal S1, Normal S2, No murmurs Abdominal: Normal bowel sounds, Soft, No tenderness, No hepatospenomegaly, No masses Extremities: No clubbing, No cyanosis, No edema, Normal pulses, No tenderness/swelling Skin: No significant lesion Neuro: Normal speech, Strength at 5/5 X4 ext, Normal tone, Sensation intact Psych/Mental Status: Mental status NL, Mood NL Labs/Xrays Labs Test 10/26/24 10:31 10/26/24 07:37 Range/Units Troponin I High Sensitivity 3 L </=54 ng/L White Blood Count 8.8 4.4-10.8 10^3/uL Red Blood Count 5.36 4.5-5.90 10^6/uL Hemoglobin 16.3 13.5-17.5 g/dL Hematocrit 47.9 41.0-53.0 % Mean Corpuscular Volume 89.3 80.0-100.0 fL Mean Corpuscular Hemoglobin 30.4 28.0-32.0 pg Mean Corpuscular Hemoglobin Concent 34.0 32.0-36.0 g/dL Red Cell Distribution Width 13.5 11.8-14.3 % Platelet Count 208 140-450 10^3/uL Mean Platelet Volume 7.7 6.9-10.8 fL Neutrophils (%) (Auto) 74.9 37.0-80.0 % Lymphocytes (%) (Auto) 15.9 10.0-50.0 % Monocytes (%) (Auto) 7.2 0.0-12.0 % Eosinophils (%) (Auto) 1.6 0.0-7.0 % Basophils (%) (Auto) 0.4 0.0-2.0 % Neutrophils # (Auto) 6.6 1.6-8.6 10 ^3/uL Lymphocytes # (Auto) 1.4 0.4-5.4 10 ^3/uL Monocytes # (Auto) 0.6 0-1.3 10 ^3/uL Eosinophils # (Auto) 0.1 0-0.8 10 ^3/uL Basophils # (Auto) 0 0-0.2 10 ^3/uL Nucleated Red Blood Cells 0.1 % Sodium Level 142 136-145 mmol/L Potassium Level 3.5 3.5-5.1 mmol/L Chloride Level 108 H 98-107 mmol/L Carbon Dioxide Level 24 20-31 mmol/L Anion Gap 10 5-15 Blood Urea Nitrogen 14 9-23 mg/dL Creatinine 1.01 0.700-1.30 mg/dL Glomerular Filtration Rate Calc 84 >90 mL/min BUN/Creatinine Ratio 13.9 10.0-20.0 Serum Glucose 102 74-106 mg/dL Calcium Level 10.1 8.7-10.4 mg/dL B-Type Natriuretic Peptide 45.63 0-100 pg/mL EXAM: CT HEAD WITHOUT CONTRAST INDICATION: Htn headache TECHNIQUE: CT of the head without intravenous contrast. Coronal and sagittal reformatted images are submitted. Radiation Dose : 1. Head: CT Dose: CTDI volume is 66.5 mGy. Dose-length product is 1175.5 mGy*cm The dose indicators for CT are the volume Computed Tomography (CT) Dose Index (CTDIvol) and the Dose Length Product (DLP), and are measured in units of mGy and mGy-cm, respectively. These indicators are not patient dose, but values generated from the CT scanner acquisition factors. The report includes radiation exposure data for exposures received during this examination. All CT scans at this medical facility are performed using dose modulation techniques as appropriate to a performed exam including the following: Automated exposure control was utilized; adjustment of the MA and/or KV according to patient size; and use of iterative reconstruction technique. COMPARISON: CT HEAD WITHOUT CONTRAST on DOS: 09/30/23 FINDINGS: There is no evidence of acute intracranial hemorrhage, extra-axial collection, mass effect, midline shift, herniation or hydrocephalus. The ventricles, sulci and cisterns are age appropriate. The toro-white differentiation is intact. The visualized paranasal sinuses and mastoid air cells are clear. No depressed calvarial fracture. The surrounding soft tissues are unremarkable. IMPRESSION: 1. No evidence of acute intracranial abnormality. CLINICAL INFORMATION: chest pain. TECHNIQUE: Single AP portable chest radiograph was obtained. COMPARISON: XY CHEST PORTABLE on DOS: 08/19/24, XY CHEST XRAY 1 VIEW on DOS: 06/20/24, XY CHEST PORTABLE on DOS: 04/22/24 FINDINGS: Lungs: Mild atelectasis in the left lung base. No focal consolidation. No pneumothorax or pleural effusion. Cardiac: Heart size is within normal limits. Pulmonary vasculature: Unremarkable. Mediastinum/justin: Unremarkable. Bones: No acute osseous abnormality identified. Other: No other significant findings. IMPRESSION: No evidence of acute disease in the chest. SEPSIS Sepsis Screen Date sepsis recognized/suspect: Oct 26, 2024 Time Sepsis recognized/suspect: 729 Recent Procedure: No On Antibiotic Therapy: No Respiratory Rate >20: No Heart Rate >90: No Temp<36 C (96.8 F) or >38.3 C: No SBP <90 or MAP <65 mmHG: No New Acute Mental Status Change: No Is the patient on CPAP, BIPAP,: No Physician Orders Electrocardigram (10/26/24 07:55) Electrocardigram (10/26/24 09:55) Chest Portable (10/26/24 06:59) Head Without Contrast (10/26/24 07:07) Admit (10/26/24 11:05) Code Status (10/26/24 11:05) Vital Signs .PER UNIT PROTOCOL (10/26/24 11:05) Vice President Medical Affairs (10/26/24 11:05) Cardiac Diet-2gna,Lofat,Lochol (10/26/24 Lunch) Aspirin Tablet (10/27/24 10:00) Atorvastatin (Lipitor) (10/26/24 22:00) Morphine Sulfate Injection (10/26/24 11:15) Acetaminophen Tablet (Tylenol Tablet) (10/26/24 11:15) Complete Blood Count (10/27/24 04:00) Basic Metabolic Panel (10/27/24 04:00) Magnesium (10/27/24 04:00) Echo 2d Mode Cardiac Dop (10/26/24 11:05) Nitroglycerin Sublingual (Ntrostat Subli (10/26/24 11:15) Ondansetron Hcl (Zofran) (10/26/24 11:15) Electrocardigram (10/27/24 04:00) Troponin-I Hs (10/26/24 11:05) Cardiac Rehabilitation - Outpa (10/26/24 ) Nitroglycerin Sublingual (Ntrostat Subli (10/26/24 11:15) Morphine Sulfate Injection (10/26/24 11:15) Stat Ekg For Chest Pain (10/26/24 11:05) Notify Md Of Changes From Base (10/26/24 11:05) Contact Representative For 24 Hours (10/26/24 11:05) Emergency Dysrhythmia Protocol (10/26/24 11:05) Rhythm Strips Once Every Shift (10/26/24 11:05) Oxygen By Nasal Cannula (10/26/24 11:05) Urinalysis (10/26/24 11:05) Drug Screen (10/26/24 11:05) Hemoglobin A1c (10/26/24 11:05) Free T4 (Free Thyroxine) (10/26/24 11:05) Lipid Panel (10/26/24 11:05) Thyroid Stimulating Hormone (10/26/24 11:42) Carvedilol Tablet (Coreg Tablet) (10/26/24 22:00) Clopidogrel Bisulfate (Plavix) (10/27/24 10:00) Ergocalciferol (Vitamin D 50,000 Unit) (10/26/24 11:45) Hydrochlorothiazide Tablet (Hydrochlorot (10/27/24 10:00) Hydrocodone-Acet 5/325mg Tab (Carroll 5/32 (10/26/24 11:45) Isosorbide Mononitrate Tablet (Ismo Tab (10/26/24 22:00) Lisinopril Tablet (Zestril Tablet) (10/27/24 10:00) Pantoprazole Tablet (Protonix Tablet) (10/27/24 10:00) (Nf) Allopurinol (Zyloprim Tablet) (10/27/24 10:00) (Nf) Colchicine (10/26/24 22:00) Vital Signs Date Time Temp Pulse Resp B/P (MAP) Pulse Ox O2 Delivery O2 Flow Rate FiO2 10/26/24 11:00 66 18 134/74 (94) 9 10/26/24 09:30 67 13 162/80 (107) 96 10/26/24 08:35 67 15 155/81 10/26/24 08:19 98.3 70 14 155/95 (115) 97 98.3 10/26/24 08:19 70 14 97 Room Air* 0 21 10/26/24 08:02 70 17 152/82 10/26/24 06:59 84 10/26/24 06:59 98.6 84 16 204/103 (136) 98 98.6 10/26/24 06:53 76 Laboratory Tests Test 10/26/24 07:37 White Blood Count 8.8 10^3/uL (4.4-10.8) Medications Medications Dose Ordered Sig/Siobhan Route Start Time Stop Time Status Last Admin Dose Admin Acetaminophen/ Hydrocodone Bitart 1 tab ONCE ONCE PO 10/26/24 09:15 10/26/24 09:16 DC 10/26/24 09:26 1 TAB Morphine Sulfate 4 mg ONCE ONCE IV 10/26/24 07:15 10/26/24 07:16 DC 10/26/24 08:02 4 MG Ondansetron HCl 4 mg ONCE ONCE IV 10/26/24 07:15 10/26/24 07:16 DC 10/26/24 08:00 4 MG Assessment/Plan Assessment/Plan Assessment Chest pain rule out ACS status post fall possible costochondritis Hypertensive urgency History of CAD status post PTCA with 10 stents placed and most recent in 2011 at [facility] History of [place] History of hypertension History of hyperlipidemia History of gout History of right foot surgery History of right knee surgery Admit to tele Aspirin + statin Pain management Antiemetics CT head noted UA UDS Troponin noted Chest x-ray noted EKG TSH Free T4 A1c Lipid panel Echo ordered Antihypertensives Diet Home medications reconciled DVT prophylaxis-not indicated patient ambulating -patient on Plavix for his stents PUD prophylaxis-PPIs Discussed plan of care with patient and nurse Cardiology consult due to extensive history of stents [id number] Preventive counseling healthy eating habits, physical activity, and regular checkups Plan discussed with: Patient My Orders Orders - GURPREET ROSENBERG Procedure Category Date Status Time Admit ADMIT 10/26/24 Transmitted 11:05 Code Status CODE 10/26/24 Transmitted 11:05 Vital Signs ANIBAL 10/26/24 In Process 11:05 Vice President Medical Affairs ANIBAL 10/26/24 In Process 11:05 Cardiac DIET 10/26/24 Transmitted Diet-2gna,Lofat,Lochol Lunch Aspirin Tablet PHA 10/27/24 Logged 10:00 Atorvastatin (Lipitor) PHA 10/26/24 Logged 22:00 Morphine Sulfate PHA 10/26/24 Logged Injection 11:15 Acetaminophen Tablet PHA 10/26/24 Logged (Tylenol Tablet) 11:15 Complete Blood Count LAB 10/27/24 Verified 04:00 Basic Metabolic Panel LAB 10/27/24 Verified 04:00 Magnesium LAB 10/27/24 Verified 04:00 Echo 2d Mode Cardiac US 10/26/24 Logged DOP 11:05 Nitroglycerin PHA 10/26/24 Logged Sublingual (Ntrostat 11:15 Ondansetron Hcl PHA 10/26/24 Logged (Zofran) 11:15 Electrocardigram EKG 10/27/24 Logged 04:00 Troponin-I Hs LAB 10/26/24 Logged 11:05 Cardiac ANIBAL 10/26/24 In Process Rehabilitation - Outpa Nitroglycerin PHA 10/26/24 Logged Sublingual (Ntrostat 11:15 Morphine Sulfate PHA 10/26/24 Logged Injection 11:15 Stat Ekg For Chest [facility] 10/26/24 In Process Pain 11:05 Notify Of Changes [facility] 10/26/24 In Process From Base 11:05 Contact Representative For ANIBAL 10/26/24 In Process 24 Hours 11:05 Emergency Dysrhythmia [facility] 10/26/24 In Process Protocol 11:05 Rhythm Strips Once [facility] 10/26/24 In Process Every Shift 11:05 Oxygen By Nasal RT 10/26/24 Transmitted Cannula 11:05 Urinalysis LAB 10/26/24 Logged 11:05 Drug Screen LAB 10/26/24 Logged 11:05 Hemoglobin A1c LAB 10/26/24 Logged 11:05 Free T4 (Free LAB 10/26/24 Logged Thyroxine) 11:05 Lipid Panel LAB 10/26/24 Logged 11:05 Thyroid Stimulating LAB 10/26/24 Logged Hormone 11:42 Carvedilol Tablet PHA 10/26/24 Transmitted (Coreg Tablet) 22:00 Clopidogrel Bisulfate PHA 10/27/24 Transmitted (Plavix) 10:00 Ergocalciferol PHA 10/26/24 Transmitted (Vitamin D 50,000 11:45 Hydrochlorothiazide PHA 10/27/24 Transmitted Tablet (Hydrochlorot 10:00 Hydrocodone-Acet PHA 10/26/24 Transmitted 5/325mg Tab (Carroll 11:45 Isosorbide PHA 10/26/24 Transmitted Mononitrate Tablet 22:00 Lisinopril Tablet PHA 10/27/24 Transmitted (Zestril Tablet) 10:00 Pantoprazole Tablet PHA 10/27/24 Transmitted (Protonix Tablet) 10:00 (Nf) Allopurinol PHA 10/27/24 Transmitted (Zyloprim Tablet) 10:00 (Nf) Colchicine PHA 10/26/24 Transmitted 22:00 Date of Service: Oct 26, 2024 Billing Provider: GURPREET ROSENBERG Common Visit Codes: 33828-[id number] INP/OBS CARE (HIGH) Secondary Visit Codes: 34532-[id number] COUNSELING IND GURPREET ROSENBERG Oct 26, 2024 11:55
[2024-10-26 12:36] LABS: Triglycerides 83 mg/dL (< 150)
[2024-10-26 12:38] LABS: Cholesterol 129 mg/dL (< 200); HDL Cholesterol 32 mg/dL (40-59)
--- NOTE | 2024-10-26 12:59 | DVHINCON2 ---
Date Seen: Oct 26, 2024 Referring Physician JIGNA Cummings Reason for Consultation Chest pain History of Present Illness This is a 64-year-old male patient who presents to emergency room with chief complaint of chest pain and fall. The patient reports that at approximately 2:00 a.m. this morning he woke up to use the restroom and felt dizzy, followed by chest pain. He reports that the next thing he remembers is falling. He denies any loss of consciousness. He called EMS and was brought to emergency room for further evaluation. Upon emergency room arrival, the patient's blood pressure was noted to reach as high as 204/103. The patient describes the chest pain as unprovoked, constant, pressure-like in nature, left-sided and nonradiating. He denies any associated symptoms. The patient has been refusing nitroglycerin because he states that it makes his headaches worse. The patient has been getting treated with IV morphine, and reports symptom relief. Initial twelve lead electrocardiogram reveals normal sinus rhythm without any significant ST segment changes. Serial troponin levels have been negative. Significant past medical history includes coronary artery disease status post PTCA x2 TRACY (in 2009 and 2011) on Plavix and aspirin therapy, history myocardial infarction, hypertension, dyslipidemia, chronic back pain, previous substance abuse, and obesity. Patient had a coronary angiogram at this facility on 08/30/[address] Land which revealed a widely patent stent to the left anterior descending artery and moderate coronary artery disease involving InStent restenosis of the left circumflex artery and the ostial diagonal branch. The patient also has had multiple visits since with similar complaints. Patient states he still has not established or followed up with any preforming machine operator in the outpatient setting. Past Medical History Past medical history reviewed. No other significant than mentioned above. Past Surgical History Coronary angiogram with left heart catheterization on 08/30/2023 Unspecified right foot surgery Family History: Cardiovascular disease G8 MOTHER, G8 FATHER, Family History Family history reviewed. Social History Denies the use of tobacco, alcohol or illicit drugs. Patient denies any history of tobacco use, but on previous visits has signed AMA to go outside to smoke. Allergies: Coded Allergies: Onion (Verified Allergy, Mild, 08/19/24) ITCHING, HIVES No Known Drug Allergy (Verified Allergy, Unknown, 08/02/23) Uncoded Allergies: HAYNES PEPPERS (Allergy, Mild, 08/19/24) ITCHING, HIVES PEACHES (Allergy, Mild, 08/19/24) HIVES, ITCHING Home Meds Active Scripts Lidocaine HCl (Aspercreme/Lidocaine) 4 % Cre, 4 % EX BID, #1 CRE apply to anterior chest/ribs for sharp pain Prov:ANIYAH PENNINGTON MD 08/21/24 Pantoprazole Sodium Sesquihydr (Pantoprazole Sodium) 40 Mg Tab, 40 MG PO DAILY, #30 TAB Prov:ANIYAH PENNINGTON MD 08/21/24 Albuterol Sulfate (Albuterol Sulfate Hfa) 108 Mcg/Act Aer, 108 MCG IN TID PRN, #1 AER Prov:SHAHNAZ BERNARD HYDRAULIC MECHANIC 06/20/24 Ibuprofen Micronized (Ibuprofen) 800 Mg Tab, 800 MG PO TID PRN, #30 TAB Prov:SHAHNAZ BERNARDP 06/20/24 Allopurinol (ZYLOPRIM TABLET) 300 Mg Tb, 1 TAB PO DAILY, #30 TAB 5 Refills Prov:CRISTINO SOMMER MD 04/24/24 Clopidogrel Bisulfate (Plavix) 75 Mg Tab, 1 TAB PO DAILY, #90 TAB 1 Refill Prov:CRISTINO SOMMER MD 04/24/24 Atorvastatin Calcium (Lipitor) 20 Mg Tab, 1 TAB PO DAILY, #90 TAB 1 Refill Prov:CRISTINO SOMMER MD 04/24/24 Metoprolol Tartrate (Metoprolol Tartrate) 25 Mg Tab, 1 TAB PO BID, #180 TAB 1 Refill Prov:CRISTINO SOMMER MD 04/24/24 Lisinopril (Lisinopril) 20 Mg Tab, 1 TAB PO DAILY, #30 TAB 5 Refills Prov:CRISTINO SOMMER MD 04/24/24 Hydrocodone-Acetaminophen (Hydrocodone Bitartrate/AC 5-325 mg) 1 Tab Tab, 1 TAB PO QID PRN, #30 TAB Prov:CRISTINO SOMMER MD 04/24/24 Colchicine (Colchicine) 0.6 Mg Cap, 0.6 MG PO BID, #30 CAP Prov:CRISTINO SOMMER MD 04/24/24 Aspirin (Aspirin Adult Low Dose) 81 Mg Tab, 81 MG PO DAILY, #90 TAB Prov:CRISTINO SOMMER MD 04/24/24 Ranolazine (Ranolazine ER) 500 Mg Tab, 500 MG PO BID for 30 Days, #60 TAB Prov:ROB PAGE PROPERTY UNDERWRITER 10/01/23 Isosorbide Mononitrate (ISMO TABLET) 20 Mg Tb, 20 MG PO BID for 30 Days, #60 TAB Prov:EMERY APARICIO 09/15/23 Acetaminophen (Acetaminophen) 500 Mg Tab, 500 MG PO QIDP for 30 Days, #120 TAB 0 Refills Prov:KAYLEE FERNANDEZ PROPERTY UNDERWRITER 08/11/23 Reported Medications Carvedilol (Carvedilol) 12.5 Mg Tab, 1 TAB PO BID for 30 Days, #60 04/24/24 Fluticasone Propionate (Nasal) (Fluticasone Propionate Na) 50 Mcg/Act Spr, 1 SPRAY EACHNOSTRI BID PRN for 60 Days, #16 04/24/24 Ergocalciferol (Vitamin D (Ergocalciferol) 50,000 Unit Cap, 1 CAP PO QWEEKLY for 14 Days, #2 04/24/24 Hctz (Hydrochlorothiazide) 25 Mg Tab, 1 TAB PO DAILY 04/22/24 Simvastatin (Simvastatin) 40 Mg Tab, 1 TAB PO DAILY 08/30/23 Nabumetone (Nabumetone) 500 Mg Tab, 1 TAB PO BID PRN 08/30/23 Clopidogrel Bisulfate (CLOPIDOGREL) 75 Mg Tab, 1 TAB PO DAILY 08/28/23 Home Meds Home medications reviewed. Current Medications Current Medications Medications (Trade) Dose Ordered Sig/Siobhan Route PRN Reason Start Time Stop Time Status Last Admin Aspirin 81 mg DAILY PO 10/27/24 10:00 Atorvastatin Calcium (Lipitor) 40 mg HS PO 10/26/24 22:00 Morphine Sulfate 2 mg Q30MP PRN IV FOR CHEST PAIN 10/26/24 11:15 Acetaminophen (Tylenol Tablet) 650 mg Q6HP PRN PO MILD PAIN (1-3 PAIN SCALE) 10/26/24 11:15 Nitroglycerin (Ntrostat Sublingual) 0.4 mg Q5MINP PRN SL FOR CHEST PAIN 10/26/24 11:15 Ondansetron HCl (Zofran) 4 mg Q4HP PRN IV NAUSEA / VOMITING 10/26/24 11:15 Nitroglycerin (Ntrostat Sublingual) 0.4 mg Q5MINP PRN SL FOR CHEST PAIN 10/26/24 11:15 Morphine Sulfate 2 mg Q30M PRN IV FOR CHEST PAIN 10/26/24 11:15 UNV Carvedilol (Coreg Tablet) 12.5 mg BID PO 10/26/24 22:00 Clopidogrel Bisulfate (Plavix) 75 mg DAILY PO 10/27/24 10:00 Ergocalciferol (Vitamin D 50,000 Unit) 50,000 unit QWEEKLY PO 10/26/24 11:45 Hydrochlorothiazide (hydroCHLOROthiazide TABLET) 25 mg DAILY PO 10/27/24 10:00 Acetaminophen/ Hydrocodone Bitart (Jasper 5/325MG Tab) 1 tab QID PRN PO PAIN SCALE 1 THRU 6 10/26/24 11:45 Isosorbide Mononitrate (Ismo Tablet) 20 mg BID PO 10/26/24 22:00 Lisinopril (Zestril Tablet) 20 mg DAILY PO 10/27/24 10:00 Pantoprazole Sodium (Protonix Tablet) 40 mg DAILY PO 10/27/24 10:00 Patient Own Medication 1 tab DAILY PO 10/27/24 10:00 UNV Patient Own Medication 0.6 mg BID PO 10/26/24 22:00 UNV Hydralazine HCl (Apresoline Injection) 10 mg Q6HP PRN IV SBP>150 10/26/24 12:00 Allopurinol (Zyloprim Tablet) 300 mg DAILY PO 10/27/24 10:00 Colchicine (Colcrys) 0.6 mg BID PO 10/26/24 22:00 Review of Systems Constitutional: No symptom reported Ears, Nose, & Throat: No symptom reported Eyes: No symptom reported Neurological: Dizziness, headache Pulmonary/Respiratory: No symptoms reported Cardiovascular: Chest pain Gastrointestinal: No symptom reported Genitourinary: No symptom reported Musculoskeletal: No symptom reported Skin: No symptom reported Psychiatric: No symptom reported Endocrine: No symptom reported Hematologic/Lymphatic: No symptom reported Vital Signs Vital Signs Date Time Temp Pulse Resp B/P (MAP) Pulse Ox O2 Delivery O2 Flow Rate FiO2 10/26/24 11:00 66 18 134/74 (94) 9 10/26/24 08:19 98.3 98.3 10/26/24 08:19 Room Air* 0 21 Physical Exam General Appearance: Cooperative. Morbidly obese Pulmonary/Respiratory: Clear, bilateral breaths sounds. Cardiovascular/Chest: Regular rate and rhythm. Peripheral Pulses: 2+ Radial (R). 2+ Radial (L). 2+ Pedal (R). 2+ Pedal (L) Abdominal Exam: Normal bowel sounds Ankle Exam: Negative ankle edema Lower extremities: Negative lower extremity edema Neuro/Mental Status: A/OX4, coherent. Thoughts/Psych: Normal thought pattern. Appropriate mood and affect. Good judgment and insight. Appearance: No acute distress. Skin Exam: Normal inspection. Normal color. Warm and dry. Labs/Diagnostic Data Labs Test 10/26/24 10:31 10/26/24 07:41 10/26/24 07:37 Range/Units Troponin I High Sensitivity 3 L </=54 ng/L Triglycerides Level 83 < 150 mg/dL Cholesterol Level 129 < 200 mg/dL LDL Cholesterol 85 < 100 mg/dL HDL Cholesterol 32 L 40-59 mg/dL Thyroid Stimulating Hormone (TSH) 0.29 L 0.55-4.78 uIU/mL White Blood Count 8.8 4.4-10.8 10^3/uL Red Blood Count 5.36 4.5-5.90 10^6/uL Hemoglobin 16.3 13.5-17.5 g/dL Hematocrit 47.9 41.0-53.0 % Mean Corpuscular Volume 89.3 80.0-100.0 fL Mean Corpuscular Hemoglobin 30.4 28.0-32.0 pg Mean Corpuscular Hemoglobin Concent 34.0 32.0-36.0 g/dL Red Cell Distribution Width 13.5 11.8-14.3 % Platelet Count 208 140-450 10^3/uL Mean Platelet Volume 7.7 6.9-10.8 fL Neutrophils (%) (Auto) 74.9 37.0-80.0 % Lymphocytes (%) (Auto) 15.9 10.0-50.0 % Monocytes (%) (Auto) 7.2 0.0-12.0 % Eosinophils (%) (Auto) 1.6 0.0-7.0 % Basophils (%) (Auto) 0.4 0.0-2.0 % Neutrophils # (Auto) 6.6 1.6-8.6 10 ^3/uL Lymphocytes # (Auto) 1.4 0.4-5.4 10 ^3/uL Monocytes # (Auto) 0.6 0-1.3 10 ^3/uL Eosinophils # (Auto) 0.1 0-0.8 10 ^3/uL Basophils # (Auto) 0 0-0.2 10 ^3/uL Nucleated Red Blood Cells 0.1 % Sodium Level 142 136-145 mmol/L Potassium Level 3.5 3.5-5.1 mmol/L Chloride Level 108 H 98-107 mmol/L Carbon Dioxide Level 24 20-31 mmol/L Anion Gap 10 5-15 Blood Urea Nitrogen 14 9-23 mg/dL Creatinine 1.01 0.700-1.30 mg/dL Glomerular Filtration Rate Calc 84 >90 mL/min BUN/Creatinine Ratio 13.9 10.0-20.0 Serum Glucose 102 74-106 mg/dL Hemoglobin A1c 5.7 <5.7 % A1C Calcium Level 10.1 8.7-10.4 mg/dL B-Type Natriuretic Peptide 45.63 0-100 pg/mL Free Thyroxine (T4) Calculated 0.78 L 0.89-1.76 ng/dL Assessment Stable angina with moderate progressive CAD Coronary artery disease status post PTCA x2 TRACY (on Aspirin and Plavix) History myocardial infarction Hypertension Dyslipidemia History of substance abuse Obesity Medical noncompliance Plan/Recommendation We will continue with the following plan/recommendations (Dr. Gonzales): * Transthoracic echocardiogram from 04/23/2024 reveals EF> 70% * There is [id number] concentric LVH. Mild diastolic dysfunction. Normal wall motion * Continue dual antiplatelet therapy with lipid-lowering agent * Initiate Ranexa * Close Cardiac surveillance * Risk factor modifications, counseled * Blood pressure control * Dietary and lifestyle changes Case discussed with Dr. Gonzales. The patient underwent a coronary angiogram with left heart catheterization on 08/30/2023 without catheter based intervention at that time. The patient comes in with uncontrolled blood pressure. We will recommend for aggressive medical management at this time. Thank you for allowing us to care for this patient. Please call with any questions or concerns. Critical care time spent: 44 minutes This medical document was created using an electronic medical record system with voice recognition software and computerized dictation system. Although this document has been carefully reviewed, there might still be some phonetic and typographical errors. Occasional wrong-word or ``sound-alike substitutions may have occurred due to the inherent limitations of voice recognition software. These areas are purely typographical due to imperfections of the software programs and do not reflect any compromise in the patient's medical care. Please read the chart carefully and recognize, using context, where these substitutions have occurred. Plan discussed with: Patient NYHA Physical activity limitations: NA Date of Service: Oct 26, 2024 Billing Provider: TIGIST MENDES Cardiology Common Codes: [id number] INP/OBS CARE (High) Cardiology Consultation Codes: [id number] CONSULT <45MIN TIGIST MENDES Oct 26, 2024 12:59
[2024-10-26 13:06] LABS: Amphetamine Screen, Urine Neg (NEGATIVE); Barbiturate Scree,Urine Neg (NEGATIVE); Benzodiazephine Screen, Urine Neg (NEGATIVE); Cannabinoid Screen, Urine Neg (NEGATIVE); Cocaine Screen, Urine Neg (NEGATIVE); Opiate Scree,Urine Pos (NEGATIVE); Phencyclidine Screen, Urine Neg (NEGATIVE)
[2024-10-26 13:12] LABS: Urine Protein, UAD 1+ (Negative)
[2024-10-26] MEDS: HYDROcodone-ACET 5/325MG TAB PO PRN (13:23)
[2024-10-26 17:21] VITALS: BP 155/82; PULSE 62; RESP 17; TEMP 99.1; O2SAT 97
[2024-10-26] MEDS: ACETAMINOPHEN 325 MG TAB PO PRN (17:26)
[2024-10-26] MEDS: hydrALAZINE HCL 20 MG/ML VL IV PRN (18:17)
[2024-10-26 20:00] VITALS: PULSE 65; PULSE 68; RESP 18; O2SAT 98
[2024-10-26 21:00] VITALS: BP 132/79; PULSE 68; RESP 18; TEMP 99.1; O2SAT 98
[2024-10-26] MEDS ORDERED: PATIENTS OWN MEDICATION (Colchicine 0.6 MG) PO SCH (22:00)
[2024-10-26] MEDS: RANOLAZINE ER 500 MG TAB PO SCH (22:24)
[2024-10-26] MEDS: KETOROLAC TROMETH 30 MG/ML 1ML VIAL IV ONE (22:24)
[2024-10-26] MEDS: CARVEDILOL 12.5 MG TAB PO SCH (22:25)
[2024-10-26] MEDS: COLCHICINE 0.6 MG CAP PO SCH (22:25)
[2024-10-26] MEDS: ISOSORBIDE MONONITRATE 20 MG TAB PO SCH (22:26)
[2024-10-26] MEDS: ATORVASTATIN 20 MG TAB PO SCH (22:27)
[2024-10-27 01:00] VITALS: BP 94/63; PULSE 70; RESP 18; TEMP 98.3; O2SAT 94
[2024-10-27 05:00] VITALS: BP_SYST 127; BP_SYST 95; BP_DIAS 59; BP_DIAS 73; PULSE 63; PULSE 78; RESP 18; RESP 20; TEMP 97.7; TEMP 99; O2SAT 93
[2024-10-27 08:00] VITALS: PULSE 52
[2024-10-27 09:00] VITALS: BP 124/68; PULSE 54; RESP 18; TEMP 98.1; O2SAT 95
[2024-10-27 09:29] LABS: Hematocrit 45.7 % (41.0-53.0); Hemoglobin 15.2 g/dL (13.5-17.5); Mean Corpuscular Hemoglobin 30.3 pg (28.0-32.0); Mean Corpuscular Volume 90.9 fL (80.0-100.0); Nucleated Red Blood Cells % 0.0 %
[2024-10-27 09:35] LABS: Potassium 3.6 mmol/L (3.5-5.1); Sodium 141 mmol/L (136-145)
[2024-10-27 09:36] LABS: Anion Gap 7 (5-15); Calcium 10.0 mg/dL (8.7-10.4); Carbon Dioxide 25 mmol/L (20-31)
[2024-10-27 09:41] LABS: BUN/Creatinine Ratio 16.4 (10.0-20.0); Blood Urea Nitrogen 18 mg/dL (9-23); Glucose 98 mg/dL (74-106)
[2024-10-27 09:42] LABS: Magnesium 2.0 mg/dL (1.6-2.6)
[2024-10-27 09:51] LABS: Chloride 109 mmol/L (98-107)
[2024-10-27] MEDS ORDERED: ALLOPURINOL PO SCH (10:00)
[2024-10-27] MEDS: CLOPIDOGREL BISULFATE 75 MG TAB PO SCH (10:48)
[2024-10-27] MEDS: hydroCHLOROthiazide 25 MG TAB PO SCH (10:49)
[2024-10-27] MEDS: PANTOPRAZOLE 40 MG TAB PO SCH (10:50)
[2024-10-27] MEDS: ALLOPURINOL 100 MG TAB PO SCH (10:52)
[2024-10-27] MEDS: LISINOPRIL 20 MG TAB PO SCH (10:52)
[2024-10-27 13:00] VITALS: BP 137/83; PULSE 59; RESP 18; TEMP 98.2; O2SAT 97
--- NOTE | 2024-10-27 13:16 | DVHPN2 ---
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 Objective vital signs Vital Sign Date Time Temp Pulse Resp B/P (MAP) Pulse Ox O2 Delivery O2 Flow Rate FiO2 10/27/24 10:49 155/89 10/27/24 09:00 98.1 54 18 95 98.1 10/27/24 08:00 Room Air* 0 21 Total Intake and Output 10/26/24 10/26/24 10/27/24 15:00 23:00 07:00 Intake Total 245 ml 120 ml Balance 245 ml 120 ml medications Current Medications Medications Dose Ordered Sig/Siobhan Route Start Time Stop Time Status Last Admin Dose Admin Aspirin 81 mg DAILY PO 10/27/24 10:00 10/27/24 10:48 81 MG Atorvastatin Calcium 40 mg HS PO 10/26/24 22:00 10/26/24 22:27 40 MG Morphine Sulfate 2 mg Q30MP PRN IV 10/26/24 11:15 Acetaminophen 650 mg Q6HP PRN PO 10/26/24 11:15 10/27/24 05:53 650 MG Nitroglycerin 0.4 mg Q5MINP PRN SL 10/26/24 11:15 Ondansetron HCl 4 mg Q4HP PRN IV 10/26/24 11:15 Nitroglycerin 0.4 mg Q5MINP PRN SL 10/26/24 11:15 Morphine Sulfate 2 mg Q30M PRN IV 10/26/24 11:15 UNV Carvedilol 12.5 mg BID PO 10/26/24 22:00 10/26/24 22:25 12.5 MG Clopidogrel Bisulfate 75 mg DAILY PO 10/27/24 10:00 10/27/24 10:48 75 MG Ergocalciferol 50,000 unit QWEEKLY PO 10/26/24 11:45 Hydrochlorothiazide 25 mg DAILY PO 10/27/24 10:00 10/27/24 10:49 25 MG Acetaminophen/ Hydrocodone Bitart 1 tab QID PRN PO 10/26/24 11:45 10/27/24 08:15 1 TAB Isosorbide Mononitrate 20 mg BID PO 10/26/24 22:00 10/27/24 10:49 20 MG Lisinopril 20 mg DAILY PO 10/27/24 10:00 Pantoprazole Sodium 40 mg DAILY PO 10/27/24 10:00 10/27/24 10:50 40 MG Patient Own Medication 1 tab DAILY PO 10/27/24 10:00 UNV Patient Own Medication 0.6 mg BID PO 10/26/24 22:00 UNV Hydralazine HCl 10 mg Q6HP PRN IV 10/26/24 12:00 10/26/24 18:17 10 MG Allopurinol 300 mg DAILY PO 10/27/24 10:00 10/27/24 10:52 300 MG Colchicine 0.6 mg BID PO 10/26/24 22:00 10/27/24 10:51 0.6 MG Ranolazine 500 mg BID PO 10/26/24 22:00 10/27/24 10:48 500 MG Examination: GENERAL:Normal, LUNGS:Normal, CVS:Normal, NEURO:Normal laboratory and microbiology Laboratory Tests 10/27/24 09:04 Test 10/27/24 09:04 Range/Units Serum Glucose 98 74-106 mg/dL Problem List/Assessment/Plan Problem List/Assessment/Plan Stable angina with moderate progressive CAD Coronary artery disease status post PTCA x2 TRACY (on Aspirin and Plavix) History myocardial infarction Hypertension Dyslipidemia History of substance abuse Obesity Medical noncompliance Plan/Recommendation (Dr. Gonzales): * Transthoracic echocardiogram from 04/23/2024 reveals EF> 70% * There is [id number] concentric LVH. Mild diastolic dysfunction. Normal wall motion * Continue dual antiplatelet therapy with lipid-lowering agent * Continue Ranexa * Close Cardiac surveillance * Risk factor modifications, counseled * Blood pressure control * Dietary and lifestyle changes Case discussed with Dr. Gonzales. The patient underwent a coronary angiogram with left heart catheterization on 08/30/2023 without catheter based intervention at that time. The patient comes in with uncontrolled blood pressure. We will recommend for aggressive medical management at this time. In the setting of an unremarkable transthoracic echocardiogram, there is no further inpatient cardiac workup indicated at this time. Thank you for allowing us to care for this patient. Please call with any questions or concerns. This medical document was created using an electronic medical record system with voice recognition software and computerized dictation system. Although this document has been carefully reviewed, there might still be some phonetic and typographical errors. Occasional wrong-word or ``sound-alike substitutions may have occurred due to the inherent limitations of voice recognition software. These areas are purely typographical due to imperfections of the software programs and do not reflect any compromise in the patient's medical care. Please read the chart carefully and recognize, using context, where these substitutions have occurred. Plan discussed with: Patient Date of Service: Oct 27, 2024 Billing Provider: TIGIST MENDES Common Visit Codes: [id number] INP/OBS CARE(HIGH) TIGIST MENDES Oct 27, 2024 13:16
[2024-10-27] MEDS ORDERED: LISI20TA56 PO (14:58)
[2024-10-27] MEDS ORDERED: HYDR-4902 PO (14:58)
--- NOTE | 2024-10-27 15:42 | DVHDS2 ---
Discharge Summary Date of Admission Oct 26, 2024 at 11:05 Date of Discharge: Oct 27, 2024 Admitting Diagnosis Chest pain Labs/Diagnostic Data: Laboratory Results Test 10/27/24 09:04 10/26/24 10:31 10/26/24 07:41 10/26/24 07:37 White Blood Count 9.2 10^3/uL (4.4-10.8) Red Blood Count 5.03 10^6/uL (4.5-5.90) Hemoglobin 15.2 g/dL (13.5-17.5) Hematocrit 45.7 % (41.0-53.0) Mean Corpuscular Volume 90.9 fL (80.0-100.0) Mean Corpuscular Hemoglobin 30.3 pg (28.0-32.0) Mean Corpuscular Hemoglobin Concent 33.3 g/dL (32.0-36.0) Red Cell Distribution Width 13.6 % (11.8-14.3) Platelet Count 199 10^3/uL (140-450) Mean Platelet Volume 7.8 fL (6.9-10.8) Neutrophils (%) (Auto) 72.7 % (37.0-80.0) Lymphocytes (%) (Auto) 17.0 % (10.0-50.0) Monocytes (%) (Auto) 7.7 % (0.0-12.0) Eosinophils (%) (Auto) 2.2 % (0.0-7.0) Basophils (%) (Auto) 0.4 % (0.0-2.0) Neutrophils # (Auto) 6.7 10 ^3/uL (1.6-8.6) Lymphocytes # (Auto) 1.6 10 ^3/uL (0.4-5.4) Monocytes # (Auto) 0.7 10 ^3/uL (0-1.3) Eosinophils # (Auto) 0.2 10 ^3/uL (0-0.8) Basophils # (Auto) 0 10 ^3/uL (0-0.2) Nucleated Red Blood Cells 0.0 % Sodium Level 141 mmol/L (136-145) Potassium Level 3.6 mmol/L (3.5-5.1) Chloride Level 109 mmol/L (98-107) Carbon Dioxide Level 25 mmol/L (20-31) Anion Gap 7 (5-15) Blood Urea Nitrogen 18 mg/dL (9-23) Creatinine 1.10 mg/dL (0.700-1.30) Glomerular Filtration Rate Calc 75 mL/min (>90) BUN/Creatinine Ratio 16.4 (10.0-20.0) Serum Glucose 98 mg/dL (74-106) Calcium Level 10.0 mg/dL (8.7-10.4) Magnesium Level 2.0 mg/dL (1.6-2.6) Troponin I High Sensitivity 3 ng/L (</=54) Triglycerides Level 83 mg/dL (< 150) Cholesterol Level 129 mg/dL (< 200) LDL Cholesterol 85 mg/dL (< 100) HDL Cholesterol 32 mg/dL (40-59) Thyroid Stimulating Hormone (TSH) 0.29 uIU/mL (0.55-4.78) Urine Color Yellow (Yellow) Urine Clarity Clear (Clear) Urine pH 6.0 (5.0-9.0) Urine Specific [place] 1.028 (1.001-1.035) Urine Protein 1+ (Negative) Urine Ketones Trace (Negative) Urine Blood 2+ /uL (Negative) Urine Nitrite Negative (Negative) Urine Bilirubin Negative (Negative) Urine Urobilinogen Normal mg/dL (Negative) Urine Leukocyte Esterase Negative /uL (Negative) Urine RBC 4 /hpf (0 - 3) Urine Microscopic WBC 1 /HPF (0-3) Urine Squamous Epithelial Cells Few /hpf (<5) Urine Bacteria Few /hpf (None Seen) Urine Mucus Few (None Seen) Urine Glucose Normal mg/dL (Normal) Urine Opiates Screen Pos (NEGATIVE) Urine Fentanyl Screen Neg (NEGATIVE) Urine Barbiturates Screen Neg (NEGATIVE) Urine Phencyclidine Screen Neg (NEGATIVE) Urine Amphetamines Screen Neg (NEGATIVE) Urine Benzodiazepines Screen Neg (NEGATIVE) Urine Cocaine Screen Neg (NEGATIVE) Urine Cannabinoids Screen Neg (NEGATIVE) Hemoglobin A1c 5.7 % A1C (<5.7) B-Type Natriuretic Peptide 45.63 pg/mL (0-100) Free Thyroxine (T4) Calculated 0.78 ng/dL (0.89-1.76) Other Laboratory Tests 10/27/24 09:04 Brief Hx & Hospital Course: History of Present Illness Kyle Santiago is a 64-year-old male with past medical history of CAD status post PTCA with 10 stents placed and most recent in 2011 at [place], [place], hypertension, hyperlipidemia, gout, right foot surgery, and right knee surgery who presents to the ED with chest pain status post fall at 2:30 a.m. yesterday while at home. Patient reports that the last few days his blood pressure has been high and he has been having headaches. He also reports dizziness while he was at home since yesterday. Patient reports that he fell landed on his buttocks and back of his head around 230 this morning with negative loss of consciousness. He states that the time he was just standing up at the time. Patient is currently complaining 8/10 chest pain feels like someone is standing on his chest intermittent in nature. He is also complaining of lower back pain. He states that activity makes it worse. Patient reports that he is compliant with his medications. He denies any smoking, drug use, or alcohol use. Patient denies any shortness of breath, fever chills, lightheadedness, weakness, abdominal pain, nausea, vomiting, diarrhea, urinary symptoms, recent sick contacts, recent travels, or recent ingestion of spoiled food. Upon examination patient is pointing to the center of his chest regarding his chest pain and states it does not radiate anywhere. Patient reports that his right knee pops and he takes Engadine for pain management. Patient reports that he last saw his primary care physician 1 week ago. Course of hospitalization: Patient was seen by Cardiology. Echocardiogram was performed. Normal ejection fraction noted. Troponins were within normal range x3. EKG was also without any ST changes. Patient reports that his chest pain does come and go. After discussing with the patient all the negative findings for cardiac workup patient was agreeable to be discharged home. Patient was requesting Engadine prescription given his generalized body aches and knee pain. Patient was discharged with a refill on his lisinopril as well as Engadine 5/325 q.8 hours as needed for [id number] pain. Chest pain probably secondary to uncontrolled hypertension. Physical examination General: Alert and Oriented x3. No acute distress. Well-nourished. Eyes: EOMI. Anicteric. HENT: Moist mucous membranes. Lungs: Clear to auscultation bilaterally. No accessory muscle use. Cardiovascular: Regular rate and rhythm. No murmur. No JVD. Abdomen: Soft, non-tender and non-distended. No palpable masses. Extremities: No edema. Non-tender. Skin: No rashes or lesions. Warm. Neurologic: No focal neurological deficits. CN II-XII grossly intact, but not individually tested. Psychiatric: Cooperative. Appropriate mood and affect. Total time spent with patient discussing and formulating plan of care: 35 minutes. This medical document was created using an electronic medical record system with [employer] dictation system. Although this document has been carefully reviewed, there may still be some phonetic and typographical errors. These areas are purely typographical due to imperfections of the software programs, and do not reflect any compromise in the patient's medical care. Consults/Reason for consult Cardiology: Rule out ACS Condition at Discharge: Fair Final Diagnosis/Problems List chest pain, ACS ruled out. Probably secondary to hypertensive crisis mechanical fall Secondary diagnosis: -History of CAD -dyslipidemia -primary hypertension -drug-seeking behavior -medication noncompliance -obesity Discharge Disposition: Home Discharge Instruct/Medications Diet: Cardiac 2g Na,low cholest Activity: No Restrictions, As Tolerated Follow Up/Referral: Follow up with PCP in 1-2 weeks Medications: See med rec form Scheduled Acetaminophen (Acetaminophen), 500 MG PO QIDP Allopurinol (Zyloprim Tablet), 1 TAB PO DAILY Aspirin (Aspirin Adult Low Dose), 81 MG PO DAILY Atorvastatin Calcium (Lipitor), 1 TAB PO DAILY Carvedilol (Carvedilol), 1 TAB PO BID, (Reported) Clopidogrel Bisulfate (Clopidogrel), 1 TAB PO DAILY, (Reported) Clopidogrel Bisulfate (Plavix), 1 TAB PO DAILY Colchicine (Colchicine), 0.6 MG PO BID Ergocalciferol (Vitamin D (Ergocalciferol), 1 CAP PO QWEEKLY, (Reported) Fluticasone Propionate (Nasal) (Fluticasone Propionate Na), 1 SPRAY EACHNOSTRI BID PRN, (Reported) Hctz (Hydrochlorothiazide), 1 TAB PO DAILY, (Reported) Isosorbide Mononitrate (Ismo Tablet), 20 MG PO BID Lidocaine HCl (Aspercreme/Lidocaine), 4 % EX BID Lisinopril (Lisinopril), 1 TAB PO DAILY Lisinopril (Lisinopril), 1 TAB PO DAILY Metoprolol Tartrate (Metoprolol Tartrate), 1 TAB PO BID Nabumetone (Nabumetone), 1 TAB PO BID PRN, (Reported) Pantoprazole Sodium Sesquihydr (Pantoprazole Sodium), 40 MG PO DAILY Ranolazine (Ranolazine ER), 500 MG PO BID Simvastatin (Simvastatin), 1 TAB PO DAILY, (Reported) Scheduled PRN Albuterol Sulfate (Albuterol Sulfate Hfa), 108 MCG IN TID PRN Hydrocodone-Acetaminophen (Hydrocodone Bitartrate/AC 5-325 mg), 1 TAB PO QID PRN Hydrocodone-Acetaminophen (Hydrocodone Bitartrate/AC 5-325 mg), 1 TAB PO Q8HP PRN Ibuprofen Micronized (Ibuprofen), 800 MG PO TID PRN 36 Discharge Statement: "Patient was advised to return to the ER or call 911 if any headaches, dizziness, shortness of breath, chest pain, abdominal pain, bleeding, fevers, or worsening of medical condition. Patient was counseled about treatment plan, medications, possible side effects, patientverbalized understanding. All questions were answered to the best of my ability. This discharge took greater then 30 minutes in planning, reviewing documentation, counseling the patient, and discussing with other team members." ASSESSMENT ASSESSMENT Assessment chest pain mechanical fall Date of Service: Nov 02, 2024 Billing Provider: ROB PAGE NP Common Visit Codes: 90118-KXL/OBS DISCH DAY >30min ROB PAGE NP Oct 27, 2024 15:42
[2024-10-27 16:46] VITALS: BP 144/88; PULSE 57; RESP 18; TEMP 98.2; O2SAT 98
--- NOTE | 2024-10-27 16:56 | DVHSR ---
APPROVED REPORT EXAM: Two-dimensional and M-mode echocardiogram with Doppler and color Doppler. Blood Pressure: 95/59 mmHg INDICATION Chest Pain RISK FACTORS Height: 70, Weight: 261 DIMENSIONS LVDd (3.8-5.7cm)LA (2D)4.0 (1.9-4.0cm)Aortic Root3.9 (2.0-3.7cm) EF (%) 56.0 (55-70%)Rt. Atrium3.6 (1.9-4.0cm)Asc. Aorta cm Mitral Valve MitralMitral Stenosis E wave0.57m/sMV Mean GR.mmHg A wave0.64m/sMV Peak GR.mmHg E/A ratio0.92D MVAcm2 DECEL [id number] 1/2 [id number] IVRTmsDop MVA2.54cm2 Aortic Valve Aortic ValveAortic Stenosis V11.14m/Chance Mean GR.4mmHg V21.29m/Chance Peak GR.7mmHg Tricuspid Valve TR Velocity2.28m/s [id number] Other Information Technically limited study due to body habitus, patient position and patient moving. Conclusion Left ventricle: Mild concentric left ventricular hypertrophy was seen. LVEF was around 55-60%. The re was no gross wall motion abnormality. Right ventricle was normal-sized with normal systolic function. Both atria were normal-sized. Aortic valve: Aortic valve was not well visualized. There was no aortic insufficiency/stenosis. The re was trace mitral regurgitation. There was no tricuspid/pulmonary valve regurgitation. Aortic root was 3.9 cm. There was no pericardial effusion. There was no echocardiographic evidence for pulmonary hypertension.
== END 2024-10-27 17:16 | disposition home or self-care (01) | DRG 199 ==
LOC: EDUNIT# 06:51 → EDBD 06:51 → ER 06:51 → OVERFLOW 11:05 → TELE-EAST 11:42
PROVIDERS: ADMIT Nurse Practitioner Acute Care; ATTEND Nurse Practitioner Acute Care
DX: I16.0 Hypertensive urgency (principal); E66.9 Obesity, unspecified; I25.118 Atherosclerotic heart disease of native coronary artery with other forms of angina pectoris; E78.5 Hyperlipidemia, unspecified; I10 Essential (primary) hypertension; Z68.29 Body mass index [BMI] 29.0-29.9, adult; G89.29 Other chronic pain; Z95.5 Presence of coronary angioplasty implant and graft; Z91.199 Patient's noncompliance with other medical treatment and regimen due to unspecified reason; I25.2 Old myocardial infarction; Z82.49 Family history of ischemic heart disease and other diseases of the circulatory system; Z91.018 Allergy to other foods; Z79.899 Other long term (current) drug therapy; Z79.02 Long term (current) use of antithrombotics/antiplatelets; Z79.82 Long term (current) use of aspirin
CPT/HCPCS: 36415; 70450; 71045; 80048; 80061; 80307; 81001; 83036; 83735; 83880; 84439; 84443; 84484; 85025; 93005; 93306; 96374; 96375; 99291; G0378; J1885; J2405

== ENCOUNTER 2024-11-25 12:04 | Inpatient (IN) | payer MEDICAID ==
[~2024-11-25] VITALS: Ht 188 cm; Wt 120.9 kg
--- NOTE | 2024-11-25 12:26 | ED.PDOC ---
HPI Comments 64 year old male presents to the ED via EMS with a chief complaint of chest pain onset today (11/25/24) about 30 minutes prior to ED arrival. Patient states he began experiencing LT sided chest pain, 12/27, described as a stabbing, sharp pain as well as nausea. Patient states he has been experiencing intermittent chest pain for the past 2 weeks. He is concerned due to last time he had similar pain, he had MO, had stents placed. He was given 324 mg Aspirin by EMS in route to ED. PMHx HTN, HLD, MO. Denies shortness of breath, dizziness, nausea, vomiting, diarrhea, numbness/tingling. No other symptoms or modifying factors present at this time. Chief Complaint: Chest Pain Time Seen by MD: 12:05 Primary Care Provider: NONE Reviewed Notes: Medications, Allergies Allergies: Coded Allergies: Onion (Verified Allergy, Mild, 08/19/24) ITCHING, HIVES No Known Drug Allergy (Verified Allergy, Unknown, 08/02/23) Uncoded Allergies: HAYNES PEPPERS (Allergy, Mild, 08/19/24) ITCHING, HIVES PEACHES (Allergy, Mild, 08/19/24) HIVES, ITCHING Home Meds Active Scripts Lisinopril (Lisinopril) 20 Mg Tab, 1 TAB PO DAILY for 20 Days, #20 TAB 5 Refills Prov:ROB PAGE NP 10/27/24 Hydrocodone-Acetaminophen (Hydrocodone Bitartrate/AC 5-325 mg) 1 Tab Tab, 1 TAB PO Q8HP PRN for 5 Days, #15 TAB Prov:ROB PAGE NP 10/27/24 Lidocaine HCl (Aspercreme/Lidocaine) 4 % Cre, 4 % EX BID, #1 CRE apply to anterior chest/ribs for sharp pain Prov:ANIYAH PENNINGTON MD 08/21/24 Pantoprazole Sodium Sesquihydr (Pantoprazole Sodium) 40 Mg Tab, 40 MG PO DAILY, #30 TAB Prov:ANIYAH PENNINGTON MD 08/21/24 Albuterol Sulfate (Albuterol Sulfate Hfa) 108 Mcg/Act Aer, 108 MCG IN TID PRN, #1 AER Prov:SHAHNAZ BERNARD 06/20/24 Ibuprofen Micronized (Ibuprofen) 800 Mg Tab, 800 MG PO TID PRN, #30 TAB Prov:SHAHNAZ BERNARD HOTEL RESERVATIONIST 06/20/24 Allopurinol (ZYLOPRIM TABLET) 300 Mg Tb, 1 TAB PO DAILY, #30 TAB 5 Refills Prov:CRISTINO SOMMER MD 04/24/24 Clopidogrel Bisulfate (Plavix) 75 Mg Tab, 1 TAB PO DAILY, #90 TAB 1 Refill Prov:CRISTINO SOMMER MD 04/24/24 Atorvastatin Calcium (Lipitor) 20 Mg Tab, 1 TAB PO DAILY, #90 TAB 1 Refill Prov:CRISTINO SOMMER MD 04/24/24 Metoprolol Tartrate (Metoprolol Tartrate) 25 Mg Tab, 1 TAB PO BID, #180 TAB 1 Refill Prov:CRISTINO SOMMER MD 04/24/24 Lisinopril (Lisinopril) 20 Mg Tab, 1 TAB PO DAILY, #30 TAB 5 Refills Prov:CRISTINO SOMMER MD 04/24/24 Hydrocodone-Acetaminophen (Hydrocodone Bitartrate/AC 5-325 mg) 1 Tab Tab, 1 TAB PO QID PRN, #30 TAB Prov:CRISTINO SOMMER MD 04/24/24 Colchicine (Colchicine) 0.6 Mg Cap, 0.6 MG PO BID, #30 CAP Prov:CRISTINO SOMMER MD 04/24/24 Aspirin (Aspirin Adult Low Dose) 81 Mg Tab, 81 MG PO DAILY, #90 TAB Prov:CRISTINO SOMMER MD 04/24/24 Ranolazine (Ranolazine ER) 500 Mg Tab, 500 MG PO BID for 30 Days, #60 TAB Prov:ROB PAGE COLLEGE SCOUTING COORDINATOR 10/01/23 Isosorbide Mononitrate (ISMO TABLET) 20 Mg Tb, 20 MG PO BID for 30 Days, #60 TAB Prov:EMERY APARICIO 09/15/23 Acetaminophen (Acetaminophen) 500 Mg Tab, 500 MG PO QIDP for 30 Days, #120 TAB 0 Refills Prov:KAYLEE FERNANDEZ COLLEGE SCOUTING COORDINATOR 08/11/23 Reported Medications Carvedilol (Carvedilol) 12.5 Mg Tab, 1 TAB PO BID for 30 Days, #60 04/24/24 Fluticasone Propionate (Nasal) (Fluticasone Propionate Na) 50 Mcg/Act Spr, 1 SPRAY EACHNOSTRI BID PRN for 60 Days, #16 04/24/24 Ergocalciferol (Vitamin D (Ergocalciferol) 50,000 Unit Cap, 1 CAP PO QWEEKLY for 14 Days, #2 04/24/24 Hctz (Hydrochlorothiazide) 25 Mg Tab, 1 TAB PO DAILY 04/22/24 Simvastatin (Simvastatin) 40 Mg Tab, 1 TAB PO DAILY 08/30/23 Nabumetone (Nabumetone) 500 Mg Tab, 1 TAB PO BID PRN 08/30/23 Clopidogrel Bisulfate (CLOPIDOGREL) 75 Mg Tab, 1 TAB PO DAILY 08/28/23 Information Source: Patient, Emergency Med Personnel Mode of Arrival: EMS Severity: Moderate Timing: Minutes Duration: Since onset Prehospital treatment: Other (aspirin 324 mg) Location: Chest (L) Radiation: No Radiation Quality: Sharp, Stabbing Onset: At Rest Cardiac Risk Factors: Hyperlipidemia, HTN PE Risk Factors: None History of: Similar pain in past, MO Modifying Factors: Nothing Past Medical History PAST MEDICAL HISTORY: High Lipids, HTN, MO Surgical History: Hernia Repair, PTCA Family History Family History: Reviewed,noncontributory to illness, Unknown Social History Smoker: Non-Smoker Alcohol: Denies ETOH Use Drugs: Denies Drug Use Lives In: Home Constitutional: denies: chills, diaphoresis, fatigue, fever, malaise, sweats, weakness, others EENTM: denies: blurred vision, double vision, ear bleeding, ear discharge, ear drainage, ear pain, ear ringing, eye pain, eye redness, hearing loss, mouth pain, mouth swelling, nasal discharge, nose bleeding, nose congestion, nose pain, photophobia, tearing, throat pain, throat swelling, voice changes, others Respiratory: denies: cough, hemoptysis, orthopnea, SOB at rest, shortness of breath, SOB with excertion, stridor, wheezing, others Cardiovascular: reports: chest pain; denies: dizzy spells, diaphoresis, Dyspnea on exertion, edema, irregular heart beat, left arm pain, lightheadedness, palpitations, PND, syncope, others Gastrointestinal: denies: abdomen distended, abdominal pain, blood streaked bowels, constipated, diarrhea, dysphagia, difficulty swallowing, hematemesis, melena, nausea, poor appetite, poor fluid intake, rectal bleeding, rectal pain, vomiting, others Genitourinary: denies: burning, dysuria, flank pain, frequency, hematuria, incontinence, penile discharge, penile sore, pain, testicle pain, testicle swelling, urgency, others Neurological: denies: dizziness, fainting, headache, left sided numbness, left sided weakness, numbness, paresthesia, pre-existing deficit, right sided numbness, right sided weakness, seizure, speech problems, tingling, tremors, we akness, others Musculoskeletal: denies: back pain, gout, joint pain, joint swelling, muscle pain, muscle stiffness, neck pain, others Integumetry: denies: bruises, change in color, change in hair/nails, dryness, laceration, lesions, lumps, rash, wounds, others Allergic/Immunocompromised: denies: Difficulty Healing, Frequent Infections, Hives, Itching, others Hematologic/Lymphatic: denies: anemia, blood clots, easy bleeding, easy bruising, swollen glands, others Endocrine: denies: excessive hunger, excessive sweating, excessive thirst, excessive urination, flushing, intolerance to cold, intolerance to heat, unexplained weight gain, unexplained weight loss, others Psychiatric: denies: anxiety, bipolar disorder, depression, hopeless, panic disorder, schizophrenia, sleepless, suicidal, others All Other Systems: Reviewed and Negative Physical Exam General Appearance: Moderate Distress, Normal HEENT: Normal ENT Inspection, Pharynx Normal, TMs Normal Neck: Full Range of Motion, Non-Tender, Normal, Normal Inspection Respiratory: Chest Non-Tender, Lungs Clear, No Accessory Muscle Use, No Respiratory Distress, Normal Breath Sounds Cardiovascular: No Edema, No JVD, No Murmur, No Gallop, Normal Peripheral Pulses, Regular Rate/Rhythm Breast Exam: Deferred Gastrointestinal: No Organomegaly, Non Tender, No Pulsatile Mass, Normal Bowel Sounds, Soft Genitalia: Deferred Pelvic: Deferred Rectal: Deferred Extremities: No calf tenderness, Normal capillary refill, Normal inspection, Normal range of motion, Non-tender, No pedal edema Musculoskeletal : Apperance: Normal Neurologic: Alert, ground equipment mechanic II-XII nml as Tested, No Motor Deficits, Normal Affect, Normal Mood, No Sensory Deficits Cerebellar Function: NOT DONE Reflexes: NOT DONE Skin: Dry, Normal Color, Warm Peripheral Pulses: 3+ Radial (R), 3+ Radial (L) Lymphatic: No Adenopathy EKG EKG : Pulse Rate (adult): 65 Cardiac Rhythm: NSR Was a procedure done? Was a procedure done?: No CP Differential Dx Differential Diagnosis: A-fib, A-Flutter, Angina, Anxiety / Panic Attack, Electrolyte Disorder X-Ray, Labs, Meds, VS Vital Signs Date Time Temp Pulse Resp B/P (MAP) Pulse Ox O2 Delivery O2 Flow Rate FiO2 11/25/24 12:26 65 11/25/24 12:19 98.2 63 20 143/97 96 98.2 11/25/24 12:16 65 Lab Test 11/25/24 13:52 11/25/24 12:40 Range/Units Troponin I High Sensitivity 3 L 6 </=54 ng/L White Blood Count 11.5 H 4.4-10.8 10^3/uL Red Blood Count 5.20 4.5-5.90 10^6/uL Hemoglobin 15.8 13.5-17.5 g/dL Hematocrit 46.9 41.0-53.0 % Mean Corpuscular Volume 90.1 80.0-100.0 fL Mean Corpuscular Hemoglobin 30.4 28.0-32.0 pg Mean Corpuscular Hemoglobin Concent 33.8 32.0-36.0 g/dL Red Cell Distribution Width 13.1 11.8-14.3 % Platelet Count 283 140-450 10^3/uL Mean Platelet Volume 7.6 6.9-10.8 fL Neutrophils (%) (Auto) 78.8 37.0-80.0 % Lymphocytes (%) (Auto) 12.2 10.0-50.0 % Monocytes (%) (Auto) 8.3 0.0-12.0 % Eosinophils (%) (Auto) 0.4 0.0-7.0 % Basophils (%) (Auto) 0.3 0.0-2.0 % Neutrophils # (Auto) 9.0 H 1.6-8.6 10 ^3/uL Lymphocytes # (Auto) 1.4 0.4-5.4 10 ^3/uL Monocytes # (Auto) 0.9 0-1.3 10 ^3/uL Eosinophils # (Auto) 0 0-0.8 10 ^3/uL Basophils # (Auto) 0 0-0.2 10 ^3/uL Nucleated Red Blood Cells 0.0 % Sodium Level 138 136-145 mmol/L Potassium Level 3.7 3.5-5.1 mmol/L Chloride Level 103 98-107 mmol/L Carbon Dioxide Level 24 20-31 mmol/L Anion Gap 11 5-15 Blood Urea Nitrogen 14 9-23 mg/dL Creatinine 1.13 0.700-1.30 mg/dL Glomerular Filtration Rate Calc 73 >90 mL/min BUN/Creatinine Ratio 12.4 10.0-20.0 Serum Glucose 108 H 74-106 mg/dL Calcium Level 9.7 8.7-10.4 mg/dL [place] [id number] Ph: [phone] DIAGNOSTIC IMAGING Diagnostic Imaging Report : [id number] Signed PATIENT: RUKHSANA DELATORRECCT: [id number] UNIT: [id number] : 1960 LOC: ER ROOM / BED: / AGE / SEX: 64 / M ADM STATUS: REG ER SERVICE [id number] ORDERING PHYSICIAN: CAROLYN HERNANDEZ MD PROCEDURE(s): CXRP - CHEST PORTABLE REASON: sob ORDER NUMBER(s): [id number], ACCESSION NUMBER(s): [id number] CLINICAL INFORMATION: Shortness of breath. TECHNIQUE: Single AP portable chest radiograph was obtained. COMPARISON: XY CHEST PORTABLE on DOS: 10/26/24, XY CHEST PORTABLE on DOS: 08/19/24, XY CHEST XRAY 1 VIEW on DOS: 06/20/24 FINDINGS: Lungs: Clear. Cardiac: Heart size is within normal limits. Pulmonary vasculature: Unremarkable. Mediastinum/justin: Unremarkable. Bones: No acute osseous abnormality identified. Other: No other significant findings. IMPRESSION: No evidence of acute disease in the chest. Patient alert. Came in because of chest pain. Vitals stable. Answering questions. EKG reviewed does not show any acute changes. Was given aspirin. Chest x-ray reviewed does not show any acute process. Possibly need echocardiogram. Stress test. Explained to the patient. Continue monitoring. Time of 1ST Reevaluation: 12:35 Reevaluation 1ST: Unchanged Patient Education/Counseling: Diagnosis, Treatment, Prognosis Family Education/Counseling: No Family Present SEPSIS Sepsis Screen Physician Orders Chest Portable (11/25/24 12:13) Troponin-I Hs (11/25/24 15:13) Electrocardigram (11/25/24 12:22) Vital Signs Date Time Temp Pulse Resp B/P (MAP) Pulse Ox O2 Delivery O2 Flow Rate FiO2 11/25/24 12:26 65 11/25/24 12:19 98.2 63 20 143/97 96 98.2 11/25/24 12:16 65 Laboratory Tests Test 11/25/24 12:40 White Blood Count 11.5 10^3/uL (4.4-10.8) H Departure 1 Departure Time of Disposition: 14:55 Impression: Primary Impression: Chest pain of unknown etiology Disposition: ADMITTED INPATIENT Admit to: Med Surg Condition: Guarded Critical Care Note Critical Care Time?: No Stability Stability form required: No Heart Score Heart Score: Heart Score Response (Comments) Value History Slightly Suspicious 0 EKG Normal 0 Age 45-64 1 Risk Factors >3 or Hx ASHD 2 Troponin Normal limit 0 Total 3 I personally scribed for CAROLYN HERNANDEZ MD ([email or web address]) on 11/25/24 at 12:26. Electronically submitted by Pamela Stubbs ([email or web address]). I personally scribed for CAROLYN HERNANDEZ MD ([email or web address]) on 11/25/24 at 13:36. Electronically submitted by Laure Otto ([email or web address]). CAROLYN HERNANDEZ MD Nov 25, 2024 12:26
[2024-11-25 13:08] LABS: Hematocrit 46.9 % (41.0-53.0); Hemoglobin 15.8 g/dL (13.5-17.5); Mean Corpuscular Hemoglobin 30.4 pg (28.0-32.0); Mean Corpuscular Volume 90.1 fL (80.0-100.0); Nucleated Red Blood Cells % 0.0 %
[2024-11-25 13:14] LABS: Chloride 103 mmol/L (98-107); Potassium 3.7 mmol/L (3.5-5.1); Sodium 138 mmol/L (136-145)
[2024-11-25 13:15] LABS: Anion Gap 11 (5-15); Calcium 9.7 mg/dL (8.7-10.4); Carbon Dioxide 24 mmol/L (20-31)
[2024-11-25 13:20] LABS: BUN/Creatinine Ratio 12.4 (10.0-20.0); Blood Urea Nitrogen 14 mg/dL (9-23)
[2024-11-25 13:21] LABS: Glucose 108 mg/dL (74-106)
--- NOTE | 2024-11-25 13:22 | DVH ---
CLINICAL INFORMATION: Shortness of breath. TECHNIQUE: Single AP portable chest radiograph was obtained. COMPARISON: XY CHEST PORTABLE on DOS: 10/26/24, XY CHEST PORTABLE on DOS: 08/19/24, XY CHEST XRAY 1 VIEW on DOS: 06/20/24 FINDINGS: Lungs: Clear. Cardiac: Heart size is within normal limits. Pulmonary vasculature: Unremarkable. Mediastinum/justin: Unremarkable. Bones: No acute osseous abnormality identified. Other: No other significant findings. IMPRESSION: No evidence of acute disease in the chest.
[2024-11-25] MEDS ORDERED: ACETAMINOPHEN 325 MG TAB PO PRN (16:30)
[2024-11-25] MEDS ORDERED: NITROGLYCERIN 0.4 MG SL TAB SL PRN (16:30)
[2024-11-25] MEDS ORDERED: MORPHINE SULFATE INJ 2 MG/ml SYRG IV PRN (16:30)
[2024-11-25] MEDS ORDERED: ERGOCALCIFEROL 50,000 UNIT(1.25MG) CAP PO SCH (16:45)
[2024-11-25] MEDS ORDERED: HYDROcodone-ACET 5/325MG TAB PO PRN (16:45)
--- NOTE | 2024-11-25 16:52 | DVHHP2 ---
History of Present Illness Reason for Visit: Chest pain likely due to costochondritis History of Present Illness This is a 64-year-old male with history of hyperlipidemia, hypertension, NC with PTCA x2 presents to ED with chief complaint of 9/10 chest pain described as sharp and stabbing in nature lasting 30 minutes this morning. He states having intermittent chest pain for the past two weeks. He is concerned due to last time he had similar pain he had an NC in which two stents were placed. The patient was given 324 mg of aspirin by EMS EN route to ED. the patient was recen tly admitted and discharged from this facility last month for the same complaint status post fall. The patient will be admitted under hospitalist care to the medical-surgical unit. The patient denies fever, chills, headache, dizziness, palpitation, shortness of breaths, nausea, vomiting, abdominal pain, diarrhea, constipation and other associated symptoms. The plan has been discussed with the patient in which all questions concerns have been addressed. Cardiovascular: HTN, NC, hyperipidemia Past Medical History Chronic pain syndrome Past Surgical History PTCA x2 Right knee arthroscopy Lumbar spine surgery Family History: None Smoke: No ALCOHOL: none Drugs: None Lives: with Family Domestic Violence: Neg Review of Systems Cardiovascular: Chest Pain Allergies: Coded Allergies: Onion (Verified Allergy, Mild, 08/19/24) ITCHING, HIVES No Known Drug Allergy (Verified Allergy, Unknown, 08/02/23) Uncoded Allergies: HAYNES PEPPERS (Allergy, Mild, 08/19/24) ITCHING, HIVES PEACHES (Allergy, Mild, 08/19/24) HIVES, ITCHING Medications Current Medications Medications Dose Ordered Sig/Siobhan Route Start Time Stop Time Status Last Admin Dose Admin Sodium Chloride 1,000 ml @ 60 mls/hr [id number] IV 11/25/24 16:30 Enoxaparin Sodium 40 mg DAILY SC 11/26/24 10:00 Acetaminophen 650 mg Q6HP PRN PO 11/25/24 16:30 Nitroglycerin 0.4 mg Q5MINP PRN SL 11/25/24 16:30 Morphine Sulfate 2 mg Q30M PRN IV 11/25/24 16:30 Exam Vital Signs Vital Signs Date Time Temp Pulse Resp B/P (MAP) Pulse Ox O2 Delivery O2 Flow Rate FiO2 11/25/24 12:26 65 11/25/24 12:19 98.2 20 143/97 96 98.2 General Appearance: Alert, Oriented X3, Cooperative, No acute distress HEENT: Atraumatic, PERRLA, Mucous membr. moist/pink Respiratory: Clear to auscultation, Normal air movement Cardiovascular: Normal S1, Normal S2, No murmurs Abdominal: Normal bowel sounds, Soft, No tenderness, No hepatospenomegaly, No masses Extremities: No clubbing, No cyanosis, No edema, Normal pulses, No tenderness/swelling Skin: No rashes, No breakdown Neuro: Normal gait, Normal speech, Strength at 5/5 X4 ext, Normal tone, Sensation intact Psych/Mental Status: Mental status NL, Mood NL Labs/Xrays Labs Test 11/25/24 13:52 11/25/24 12:40 Range/Units Troponin I High Sensitivity 3 L </=54 ng/L White Blood Count 11.5 H 4.4-10.8 10^3/uL Red Blood Count 5.20 4.5-5.90 10^6/uL Hemoglobin 15.8 13.5-17.5 g/dL Hematocrit 46.9 41.0-53.0 % Mean Corpuscular Volume 90.1 80.0-100.0 fL Mean Corpuscular Hemoglobin 30.4 28.0-32.0 pg Mean Corpuscular Hemoglobin Concent 33.8 32.0-36.0 g/dL Red Cell Distribution Width 13.1 11.8-14.3 % Platelet Count 283 140-450 10^3/uL Mean Platelet Volume 7.6 6.9-10.8 fL Neutrophils (%) (Auto) 78.8 37.0-80.0 % Lymphocytes (%) (Auto) 12.2 10.0-50.0 % Monocytes (%) (Auto) 8.3 0.0-12.0 % Eosinophils (%) (Auto) 0.4 0.0-7.0 % Basophils (%) (Auto) 0.3 0.0-2.0 % Neutrophils # (Auto) 9.0 H 1.6-8.6 10 ^3/uL Lymphocytes # (Auto) 1.4 0.4-5.4 10 ^3/uL Monocytes # (Auto) 0.9 0-1.3 10 ^3/uL Eosinophils # (Auto) 0 0-0.8 10 ^3/uL Basophils # (Auto) 0 0-0.2 10 ^3/uL Nucleated Red Blood Cells 0.0 % Sodium Level 138 136-145 mmol/L Potassium Level 3.7 3.5-5.1 mmol/L Chloride Level 103 98-107 mmol/L Carbon Dioxide Level 24 20-31 mmol/L Anion Gap 11 5-15 Blood Urea Nitrogen 14 9-23 mg/dL Creatinine 1.13 0.700-1.30 mg/dL Glomerular Filtration Rate Calc 73 >90 mL/min BUN/Creatinine Ratio 12.4 10.0-20.0 Serum Glucose 108 H 74-106 mg/dL Calcium Level 9.7 8.7-10.4 mg/dL ORDERING PHYSICIAN: CAROLYN HERNANDEZ MD PROCEDURE(s): CXRP - CHEST PORTABLE REASON: sob ORDER NUMBER(s): [id number], ACCESSION NUMBER(s): [id number] CLINICAL INFORMATION: Shortness of breath. TECHNIQUE: Single AP portable chest radiograph was obtained. COMPARISON: XY CHEST PORTABLE on DOS: 10/26/24, XY CHEST PORTABLE on DOS: 08/19/24, XY CHEST XRAY 1 VIEW on DOS: 06/20/24 FINDINGS: Lungs: Clear. Cardiac: Heart size is within normal limits. Pulmonary vasculature: Unremarkable. Mediastinum/justin: Unremarkable. Bones: No acute osseous abnormality identified. Other: No other significant findings. IMPRESSION: No evidence of acute disease in the chest. ATED BY: CHIP GREENE DO DICTATED DATE/TIME: 11/25/241318 SIGNED BY: CHIP GREENE DO SIGNED DATE/TIME: 11/25/241318 CC: SEPSIS Sepsis Screen Date sepsis recognized/suspect: Nov 25, 2024 Time Sepsis recognized/suspect: 1221 Recent Procedure: No On Antibiotic Therapy: No Respiratory Rate >20: No Heart Rate >90: No Temp<36 C (96.8 F) or >38.3 C: No SBP <90 or MAP <65 mmHG: No New Acute Mental Status Change: No Is the patient on CPAP, BIPAP,: No Physician Orders Chest Portable (11/25/24 12:13) Electrocardigram (11/25/24 12:22) Drug Screen (11/25/24 16:30) Admit (11/25/24 16:30) 2 Gm Sodium Diet (11/25/24 Dinner) Sodium Chloride 0.9% (11/25/24 16:30) Enoxaparin Sodium (Lovenox) (11/26/24 10:00) Complete Blood Count (11/26/24 04:00) Comprehensive Metabolic Panel (11/26/24 04:00) Echo 2d Mode Cardiac Dop (11/25/24 16:30) Condition: Fair (11/25/24 16:30) Acetaminophen Tablet (Tylenol Tablet) (11/25/24 16:30) Bedrest With Bathroom Privileg (11/25/24 16:30) Nitroglycerin Sublingual (Ntrostat Subli (11/25/24 16:30) Morphine Sulfate Injection (11/25/24 16:30) Stat Ekg For Chest Pain (11/25/24 16:30) Notify Md Of Changes From Base (11/25/24 16:30) Pipelaying Fitter For 24 Hours (11/25/24 16:30) Emergency Dysrhythmia Protocol (11/25/24 16:30) Rhythm Strips Once Every Shift (11/25/24 16:30) Oxygen By Nasal Cannula (11/25/24 16:30) Aspirin Enteric Coated Tablet (Ecotrin E (11/26/24 10:00) Atorvastatin (Lipitor) (11/26/24 10:00) Carvedilol Tablet (Coreg Tablet) (11/25/24 22:00) Clopidogrel Bisulfate (Plavix) (11/26/24 10:00) Ergocalciferol (Vitamin D 50,000 Unit) (11/25/24 16:45) Hydrochlorothiazide Tablet (Hydrochlorot (11/26/24 10:00) Hydrocodone-Acet 5/325mg Tab ([place] 5/32 (11/25/24 16:45) Isosorbide Mononitrate Tablet (Ismo Tab (11/25/24 22:00) Lisinopril Tablet (Zestril Tablet) (11/26/24 10:00) Pantoprazole Tablet (Protonix Tablet) (11/26/24 10:00) Vital Signs Date Time Temp Pulse Resp B/P (MAP) Pulse Ox O2 Delivery O2 Flow Rate FiO2 11/25/24 12:26 65 11/25/24 12:19 98.2 63 20 143/97 96 98.2 11/25/24 12:16 65 Laboratory Tests Test 11/25/24 12:40 White Blood Count 11.5 10^3/uL (4.4-10.8) H Assessment/Plan Assessment/Plan Chest pain likely due to costochondritis--chief complaint of 12/27 chest pain described as sharp and stabbing in nature associated with nausea that started today lasting 30 minutes prior to ED arrival Intermittent chest pain past two weeks History of NC with PTCA x2 Patient given 324 mg aspirin by EMS EN route to ED History of hypertension, hyperlipidemia and NC During evaluation patient alert oriented x4, is ambulatory and in no distress but does complain of chest pain Admit to medical-surgical unit Reviewed chest x-ray which is normal Reviewed CBC shows mild leukocytosis Cardiac enzyme negative x2 BMP is normal Reviewed chest x-ray which is normal Reviewed previous echo performed on 10/27/2024-EF 55-60% Urine tox screen pending Continue Plavix and Ranolazine We will consider to consult slumber room attendant if evaluation and recommendation are needed Hypertension Resume antihypertensive agent Hyperlipidemia Continue simvastatin as prescribed Chronic pain syndrome Continue prescribed [place] Reconcile home medication DVT prophylaxis PUD prophylaxis Labs in a.m. Discussed plan of care with the patient in which all questions concerns have been addressed Plan discussed with: Patient My Orders Orders - OSNA CUNHA POLE LIFT OPERATOR Procedure Category Date Status Time Drug Screen LAB 11/25/24 Logged 16:30 Admit ADMIT 11/25/24 Transmitted 16:30 2 Gm Sodium Diet DIET 11/25/24 Transmitted Dinner Sodium Chloride 0.9% PHA 11/25/24 In Process 16:30 Enoxaparin Sodium PHA 11/26/24 In Process (Lovenox) 10:00 Complete Blood Count LAB 11/26/24 Verified 04:00 Comprehensive LAB 11/26/24 Verified Metabolic Panel 04:00 Echo 2d Mode Cardiac US 11/25/24 Logged DOP 16:30 Condition: Fair ANIBAL 11/25/24 In Process 16:30 Acetaminophen Tablet PHA 11/25/24 In Process (Tylenol Tablet) 16:30 Bedrest With Bathroom ANIBAL 11/25/24 In Process Privileg 16:30 Nitroglycerin PHA 11/25/24 In Process Sublingual (Ntrostat 16:30 Morphine Sulfate PHA 11/25/24 In Process Injection 16:30 Stat Ekg For Chest ANIBAL 11/25/24 In Process Pain 16:30 Notify Of Changes ANIBAL 11/25/24 In Process From Base 16:30 Pipelaying Fitter For [facility] 11/25/24 In Process 24 Hours 16:30 Emergency Dysrhythmia [facility] 11/25/24 In Process Protocol 16:30 Rhythm Strips Once [facility] 11/25/24 In Process Every Shift 16:30 Oxygen By Nasal RT 11/25/24 Transmitted Cannula 16:30 Aspirin Enteric PHA 11/26/24 Verified Coated Tablet 10:00 Atorvastatin (Lipitor) PHA 11/26/24 Verified 10:00 Carvedilol Tablet PHA 11/25/24 Verified (Coreg Tablet) 22:00 Clopidogrel Bisulfate PHA 11/26/24 Verified (Plavix) 10:00 Ergocalciferol PHA 11/25/24 Verified (Vitamin D 50,000 16:45 Hydrochlorothiazide PHA 11/26/24 Verified Tablet (Hydrochlorot 10:00 Hydrocodone-Acet PHA 11/25/24 Verified 5/325mg Tab ([place] 16:45 Isosorbide PHA 11/25/24 Verified Mononitrate Tablet 22:00 Lisinopril Tablet PHA 11/26/24 Verified (Zestril Tablet) 10:00 Pantoprazole Tablet PHA 11/26/24 Verified (Protonix Tablet) 10:00 Date of Service: Nov 25, 2024 Billing Provider: SONA CUNHA Common Visit Codes: [id number] INP/OBS CARE (HIGH) SONA CUNHAP Nov 25, 2024 16:52
[2024-11-25] MEDS: SODIUM CHLORIDE 0.9% 1,000 ML IV SCH (17:01)
[2024-11-25] MEDS: HYDROcodone-ACET 5/325MG TAB PO PRN (17:25)
[2024-11-25] MEDS: MORPHINE SULFATE INJ 2 MG/ml SYRG IV PRN (19:18)
[2024-11-25 22:04] VITALS: BP 131/86; PULSE 63; RESP 18; O2SAT 99
[2024-11-25 22:50] VITALS: BP 143/81; PULSE 55; RESP 16; TEMP 98.3; O2SAT 97
[2024-11-25 22:57] VITALS: PULSE 55; RESP 16; O2SAT 97
[2024-11-25] MEDS: RANOLAZINE ER 500 MG TAB PO SCH (23:24)
[2024-11-25] MEDS: CARVEDILOL 12.5 MG TAB PO SCH (23:25)
[2024-11-25] MEDS: ISOSORBIDE MONONITRATE 20 MG TAB PO SCH (23:25)
[2024-11-26] VITALS (7 sets, daily range): BP systolic 93–152; BP diastolic 53–98; PULSE 60–71; RESP 16–20; TEMP 97.9–98.5; O2SAT 93–98
--- NOTE | 2024-11-26 07:15 | ECG ---
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
[2024-11-26 08:18] LABS: Hematocrit 44.1 % (41.0-53.0); Hemoglobin 14.9 g/dL (13.5-17.5); Mean Corpuscular Hemoglobin 30.3 pg (28.0-32.0); Mean Corpuscular Volume 89.5 fL (80.0-100.0); Nucleated Red Blood Cells % 0.0 %
[2024-11-26 08:32] LABS: Alanine Aminotransferase 21 U/L (7-40); Albumin 4.3 g/dL (3.2-4.8); Alkaline Phosphatase 86 U/L (46-116); Anion Gap 13 (5-15); BUN/Creatinine Ratio 17.3 (10.0-20.0); Bilirubin, Total 0.6 mg/dL (0.2-1.0); Blood Urea Nitrogen 19 mg/dL (9-23); Calcium 9.1 mg/dL (8.7-10.4); Chloride 106 mmol/L (98-107); Potassium 4.3 mmol/L (3.5-5.1); Sodium 138 mmol/L (136-145); Total Protein 6.6 g/dL (5.7-8.2)
[2024-11-26 08:34] LABS: Carbon Dioxide 19 mmol/L (20-31); Glucose 107 mg/dL (74-106)
[2024-11-26] MEDS: ENOXAPARIN SOD 40 MG/0.4 ML SYRINGE SC SCH (10:00)
[2024-11-26] MEDS ORDERED: PATIENTS OWN MEDICATION (Simvastatin 1 TAB) PO SCH (10:00)
[2024-11-26] MEDS: COLCHICINE 0.6 MG CAP PO SCH (10:00)
[2024-11-26] MEDS: PANTOPRAZOLE 40 MG TAB PO SCH (10:13)
[2024-11-26] MEDS: hydroCHLOROthiazide 25 MG TAB PO SCH (10:14)
[2024-11-26] MEDS: ALLOPURINOL 100 MG TAB PO SCH (10:15)
[2024-11-26] MEDS: LISINOPRIL 20 MG TAB PO SCH (10:16)
[2024-11-26] MEDS: CLOPIDOGREL BISULFATE 75 MG TAB PO SCH (10:16)
[2024-11-26] MEDS: ASPirin-EC 81 mg tab PO SCH (10:17)
--- NOTE | 2024-11-26 16:19 | DVHPN2 ---
Subjective Shortness of breaths with walking to the restroom and chest pressure Reviewed: Care Plan, H&P, Labs, Medications, Previous Orders, Radiology Changes from previous H/P or p: No Changes Cardiovascular: Chest Pain Objective Vitals Vital Signs Date Time Temp Pulse Resp B/P (MAP) Pulse Ox O2 Delivery O2 Flow Rate FiO2 11/26/24 13:16 65 20 105/70 11/26/24 12:27 97.9 98 97.9 11/26/24 08:05 Room Air* 0 21 Intake/Output Intake and Output 11/26/24 07:00 Intake Total 240 ml Output Total 0 ml Balance 240 ml Intake Oral 240 ml Output Urine Total 0 ml General Appearance: Alert, Oriented X3, Cooperative, No acute distress HEENT: Atraumatic Lungs: Clear to auscultation Cardiovascular: Regular rate Abdomen: Normal bowel sounds, Soft, No tenderness Extremities: Other (Trace bilateral lower extremity edema) Medications Current Medications Medications Dose Ordered Sig/Siobhan Route Start Time Stop Time Status Last Admin Dose Admin Sodium Chloride 1,000 ml @ 60 mls/hr [id number] IV 11/25/24 16:30 11/26/24 09:10 60 MLS/HR Enoxaparin Sodium 40 mg DAILY SC 11/26/24 10:00 Acetaminophen 650 mg Q6HP PRN PO 11/25/24 16:30 Nitroglycerin 0.4 mg Q5MINP PRN SL 11/25/24 16:30 Morphine Sulfate 2 mg Q30M PRN IV 11/25/24 16:30 Aspirin 81 mg DAILY PO 11/26/24 10:00 11/26/24 10:17 81 MG Atorvastatin Calcium 20 mg HS PO 11/26/24 22:00 Carvedilol 12.5 mg BID PO 11/25/24 22:00 11/26/24 10:17 12.5 MG Clopidogrel Bisulfate 75 mg DAILY PO 11/26/24 10:00 11/26/24 10:16 75 MG Ergocalciferol 50,000 unit QWEEKLY PO 11/25/24 16:45 Hydrochlorothiazide 25 mg DAILY PO 11/26/24 10:00 11/26/24 10:14 25 MG Isosorbide Mononitrate 20 mg BID PO 11/25/24 22:00 11/26/24 10:15 20 MG Lisinopril 20 mg DAILY PO 11/26/24 10:00 11/26/24 10:16 20 MG Pantoprazole Sodium 40 mg DAILY PO 11/26/24 10:00 11/26/24 10:13 40 MG Ranolazine 500 mg BID PO 11/25/24 22:00 11/26/24 10:13 500 MG Allopurinol 300 mg DAILY PO 11/26/24 10:00 11/26/24 10:15 300 MG Colchicine 0.6 mg BID PO 11/26/24 10:00 Morphine Sulfate 2 mg Q6HPRN PRN IV 11/25/24 19:00 11/26/24 12:46 2 MG Acetaminophen/ Hydrocodone Bitart 1 tab Q4HPRN PRN PO 11/26/24 18:15 Laboratory Results Laboratory Tests 11/26/24 06:46 Chemistry Test 11/26/24 06:46 Albumin 4.3 g/dL (3.2-4.8) Calcium Level 9.1 mg/dL (8.7-10.4) Total Protein 6.6 g/dL (5.7-8.2) Coagulation Test 11/26/24 14:30 D-Dimer, Quantitative 0.23 mg/L FEU (0.0-0.49) LFT Test 11/26/24 06:46 Alanine Aminotransferase (ALT) 21 U/L (7-40) Alkaline Phosphatase 86 U/L (46-116) Aspartate Amino Transferase (AST) 25 U/L (13-40) Total Bilirubin 0.6 mg/dL (0.2-1.0) Assessment/Plan Assessment/Plan Chest pain and shortness of the breath with minimal exertion History of PR and stent placement x2 Hypertension Dyslipidemia Chronic pain syndrome/patient uses [place] 5 mg 4 times a day Obesity Leukocytosis of unclear etiology Plan: We will check D-dimer. Echocardiogram. Cardiology consultation. Check the urine. BNP. Repeat labs. Resume [place]. CRP. Further plan per orders Plan discussed with: Patient My Orders Orders - JUSTINO LYNN MD Procedure Category Date Status Time Hydrocodone-Acet PHA 11/26/24 In Process 5/325mg Tab ([place] 18:15 Echo 2d Mode Cardiac US 11/26/24 Logged DOP 16:12 * Cardiology Consult CONS 11/26/24 Transmitted 16:12 Annual Giving Officer ORDERS 11/26/24 Transmitted 16:12 Oxygen By Nasal RT 11/26/24 Transmitted Cannula 16:13 Transfer Orders XFER 11/26/24 Transmitted 16:14 B-Type Natriuretic LAB 11/26/24 Transmitted Peptide 16:15 Date of Service: Nov 26, 2024 Billing Provider: JUSTINO LYNN MD Common Visit Codes: [id number] INP/OBS CARE(HIGH) JUSTINO LYNN MD Nov 26, 2024 16:19
[2024-11-26] MEDS: HYDROcodone-ACET 5/325MG TAB PO PRN (18:23)
[2024-11-26] MEDS: ATORVASTATIN 20 MG TAB PO SCH (22:04)
[2024-11-27] VITALS (15 sets, daily range): BP systolic 92–153; BP diastolic 59–99; PULSE 59–79; RESP 16–19; TEMP 97.7–98.2; O2SAT 96–99
[2024-11-27 07:42] LABS: Hematocrit 44.2 % (41.0-53.0); Hemoglobin 15.1 g/dL (13.5-17.5); Mean Corpuscular Hemoglobin 30.5 pg (28.0-32.0); Mean Corpuscular Volume 89.6 fL (80.0-100.0); Nucleated Red Blood Cells % 0.1 %
[2024-11-27 07:51] LABS: Anion Gap 10 (5-15); Calcium 9.5 mg/dL (8.7-10.4); Carbon Dioxide 28 mmol/L (20-31); Chloride 101 mmol/L (98-107); Potassium 3.7 mmol/L (3.5-5.1); Sodium 139 mmol/L (136-145)
[2024-11-27 07:57] LABS: BUN/Creatinine Ratio 10.5 (10.0-20.0); Blood Urea Nitrogen 13 mg/dL (9-23)
[2024-11-27 07:59] LABS: Glucose 113 mg/dL (74-106)
--- NOTE | 2024-11-27 08:41 | DVHINCON2 ---
[facility] 11/27/24 0841: Date Seen: Nov 27, 2024 Referring Physician MD Bob Reason for Consultation Chest pain, SOB History of Present Illness This is a 64-year-old man who presented to the emergency room via EMS with a chief complaint of chest pain. Describes his chest pain as left-sided, non provoked, nonradiating, pressure-like, and associated with SOB and dizziness. He underwent a 12 lead electrocardiogram revealing a sinus rhythm without significant ST segment changes. Serial troponin levels are negative. It was noted multiple visits to this facility for similar chest pain complaints. Records indicate the patient underwent a coronary angiogram with cardiac catheterization revealing a widely patent stent to the left anterior descending artery and moderate coronary artery disease involving in-stent restenosis of the left circumflex artery and the ostial diagonal branch on 08/30/2023. The patient admits to poor compliance with single antiplatelet therapy neither following up in the outpatient setting with the primary grain receiver. Significant past medical history includes coronary artery disease status post PTCA x2 TRACY (in 2009 and 2011) on aspirin therapy, history myocardial infarction, hypertension, dyslipidemia, chronic back pain, previous history of substance abuse, and obesity. Past Medical History Past medical history reviewed. No other significant than mentioned above. Past Surgical History PTCAs x 2 including 2 TRACY, Family History: Cardiovascular disease G8 MOTHER, G8 FATHER, Family History Family history reviewed. Reports mother with AK without cardiac interventions. Social History Denies the use of illicit drugs, alcohol, or tobacco use. Allergies: Coded Allergies: Onion (Verified Allergy, Mild, 08/19/24) ITCHING, HIVES No Known Drug Allergy (Verified Allergy, Unknown, 08/02/23) Uncoded Allergies: HAYNES PEPPERS (Allergy, Mild, 08/19/24) ITCHING, HIVES PEACHES (Allergy, Mild, 08/19/24) HIVES, ITCHING Home Meds Active Scripts Lisinopril (Lisinopril) 20 Mg Tab, 1 TAB PO DAILY for 20 Days, #20 TAB 5 Refills Prov:ROB PAGE RENTAL SALES ASSOCIATE 10/27/24 Hydrocodone-Acetaminophen (Hydrocodone Bitartrate/AC 5-325 mg) 1 Tab Tab, 1 TAB PO Q8HP PRN for 5 Days, #15 TAB Prov:ROB PAGE RENTAL SALES ASSOCIATE 10/27/24 Lidocaine HCl (Aspercreme/Lidocaine) 4 % Cre, 4 % EX BID, #1 CRE apply to anterior chest/ribs for sharp pain Prov:ANIYAH PENNINGTON MD 08/21/24 Pantoprazole Sodium Sesquihydr (Pantoprazole Sodium) 40 Mg Tab, 40 MG PO DAILY, #30 TAB Prov:ANIYAH PENNINGTON MD 08/21/24 Albuterol Sulfate (Albuterol Sulfate Hfa) 108 Mcg/Act Aer, 108 MCG IN TID PRN, #1 AER Prov:SHAHNAZ BERNARDP 06/20/24 Ibuprofen Micronized (Ibuprofen) 800 Mg Tab, 800 MG PO TID PRN, #30 TAB Prov:SHAHNAZ BERNARDP 06/20/24 Allopurinol (ZYLOPRIM TABLET) 300 Mg Tb, 1 TAB PO DAILY, #30 TAB 5 Refills Prov:CRISTINO SOMMER MD 04/24/24 Clopidogrel Bisulfate (Plavix) 75 Mg Tab, 1 TAB PO DAILY, #90 TAB 1 Refill Prov:CRISTINO SOMMER MD 04/24/24 Atorvastatin Calcium (Lipitor) 20 Mg Tab, 1 TAB PO DAILY, #90 TAB 1 Refill Prov:CRISTINO SOMMER MD 04/24/24 Metoprolol Tartrate (Metoprolol Tartrate) 25 Mg Tab, 1 TAB PO BID, #180 TAB 1 Refill Prov:CRISTINO SOMMER MD 04/24/24 Lisinopril (Lisinopril) 20 Mg Tab, 1 TAB PO DAILY, #30 TAB 5 Refills Prov:CRISTINO SOMMER MD 04/24/24 Hydrocodone-Acetaminophen (Hydrocodone Bitartrate/AC 5-325 mg) 1 Tab Tab, 1 TAB PO QID PRN, #30 TAB Prov:CRISTINO SOMMER MD 04/24/24 Colchicine (Colchicine) 0.6 Mg Cap, 0.6 MG PO BID, #30 CAP Prov:CRISTINO SOMMER MD 04/24/24 Aspirin (Aspirin Adult Low Dose) 81 Mg Tab, 81 MG PO DAILY, #90 TAB Prov:CRISTINO SOMMER MD 04/24/24 Ranolazine (Ranolazine ER) 500 Mg Tab, 500 MG PO BID for 30 Days, #60 TAB Prov:KEYSHATANIYA CurtisRIVAS RENTAL SALES ASSOCIATE 10/01/23 Isosorbide Mononitrate (ISMO TABLET) 20 Mg Tb, 20 MG PO BID for 30 Days, #60 TAB Prov:JERZY APARICIOISA RESIDENT 09/15/23 Acetaminophen (Acetaminophen) 500 Mg Tab, 500 MG PO QIDP for 30 Days, #120 TAB 0 Refills Prov:JIMKAYLEE RENTAL SALES ASSOCIATE 08/11/23 Reported Medications Carvedilol (Carvedilol) 12.5 Mg Tab, 1 TAB PO BID for 30 Days, #60 04/24/24 Fluticasone Propionate (Nasal) (Fluticasone Propionate Na) 50 Mcg/Act Spr, 1 SPRAY EACHNOSTRI BID PRN for 60 Days, #16 04/24/24 Ergocalciferol (Vitamin D (Ergocalciferol) 50,000 Unit Cap, 1 CAP PO QWEEKLY for 14 Days, #2 04/24/24 Hctz (Hydrochlorothiazide) 25 Mg Tab, 1 TAB PO DAILY 04/22/24 Simvastatin (Simvastatin) 40 Mg Tab, 1 TAB PO DAILY 08/30/23 Nabumetone (Nabumetone) 500 Mg Tab, 1 TAB PO BID PRN 08/30/23 Clopidogrel Bisulfate (CLOPIDOGREL) 75 Mg Tab, 1 TAB PO DAILY 08/28/23 Home Meds Home medications reviewed. Current Medications Current Medications Medications (Trade) Dose Ordered Sig/Siobhan Route PRN Reason Start Time Stop Time Status Last Admin Enoxaparin Sodium (Lovenox) 40 mg DAILY SC 11/26/24 10:00 Aspirin (Ecotrin Enteric Coated Tablet) 81 mg DAILY PO 11/26/24 10:00 11/26/24 10:17 Atorvastatin Calcium (Lipitor) 20 mg HS PO 11/26/24 22:00 11/26/24 22:04 Clopidogrel Bisulfate (Plavix) 75 mg DAILY PO 11/26/24 10:00 11/26/24 10:16 Hydrochlorothiazide (hydroCHLOROthiazide TABLET) 25 mg DAILY PO 11/26/24 10:00 11/26/24 10:14 Lisinopril (Zestril Tablet) 20 mg DAILY PO 11/26/24 10:00 11/26/24 10:16 Pantoprazole Sodium (Protonix Tablet) 40 mg DAILY PO 11/26/24 10:00 11/26/24 10:13 Allopurinol (Zyloprim Tablet) 300 mg DAILY PO 11/26/24 10:00 11/26/24 10:15 Colchicine (Colcrys) 0.6 mg BID PO 11/26/24 10:00 Patient Own Medication 1 tab DAILY PO 11/26/24 10:00 11/25/24 17:06 DC Acetaminophen/ Hydrocodone Bitart ([place] 5/325MG Tab) 1 tab Q4HPRN PRN PO PAIN SCALE 4 THRU 6 11/26/24 18:15 11/27/24 08:15 Review of Systems Constitutional: No symptom reported Ears, Nose, & Throat: No symptom reported Eyes: No symptom reported Neurological: Dizziness Pulmonary/Respiratory: SOB Cardiovascular: Chest pain Gastrointestinal: No symptom reported Genitourinary: No symptom reported Musculoskeletal: No symptom reported Skin: No symptom reported Psychiatric: No symptom reported Endocrine: No symptom reported Hemotologic/Lymphatic: No symptom reported Vital Signs Vital Signs Date Time Temp Pulse Resp B/P (MAP) Pulse Ox O2 Delivery O2 Flow Rate FiO2 11/27/24 08:24 61 16 99 Room Air* 0 21 11/27/24 06:13 125/75 11/27/24 05:00 97.8 97.8 Physical Exam General Appearance: Cooperative. Well developed. Obese. In no acute distress Head Exam: Normal inspection Neck Exam: Normal inspection. Non-tender. Normal alignment Pulmonary/Respiratory: Chest non-tender. Clear bilateral breath sounds Cardiovascular/Chest: Regular rate and rhythm. S1, S2. NSR. No murmurs. No JVD. Peripheral Pulses: 2+ Radial (R). 2+ Radial (L). 2+ Pedal (R). 2+ Pedal (L) Abdominal Exam: Normal bowel sounds. Soft. Ankle Exam: Negative ankle edema Lower extremities: Negative lower extremity edema Neuro/Mental Status: A&O x4. Coherent Thoughts/Psych: Normal thought pattern. Appropriate mood and affect. Good judgement and insight Appearance: In no acute distress Skin Exam: Normal inspection. Normal color. Warm. Dry Labs/Diagnostic Data Labs Test 11/27/24 07:04 11/26/24 14:30 11/26/24 06:46 11/25/24 13:52 Range/Units White Blood Count 10.1 4.4-10.8 10^3/uL Red Blood Count 4.94 4.5-5.90 10^6/uL Hemoglobin 15.1 13.5-17.5 g/dL Hematocrit 44.2 41.0-53.0 % Mean Corpuscular Volume 89.6 80.0-100.0 fL Mean Corpuscular Hemoglobin 30.5 28.0-32.0 pg Mean Corpuscular Hemoglobin Concent 34.1 32.0-36.0 g/dL Red Cell Distribution Width 13.2 11.8-14.3 % Platelet Count 258 140-450 10^3/uL Mean Platelet Volume 7.8 6.9-10.8 fL Neutrophils (%) (Auto) 68.3 37.0-80.0 % Lymphocytes (%) (Auto) 17.2 10.0-50.0 % Monocytes (%) (Auto) 9.0 0.0-12.0 % Eosinophils (%) (Auto) 5.1 0.0-7.0 % Basophils (%) (Auto) 0.4 0.0-2.0 % Neutrophils # (Auto) 6.9 1.6-8.6 10 ^3/uL Lymphocytes # (Auto) 1.7 0.4-5.4 10 ^3/uL Monocytes # (Auto) 0.9 0-1.3 10 ^3/uL Eosinophils # (Auto) 0.5 0-0.8 10 ^3/uL Basophils # (Auto) 0 0-0.2 10 ^3/uL Nucleated Red Blood Cells 0.1 % Erythrocyte Sedimentation Rate 10 0-20 mm/hr Sodium Level 139 136-145 mmol/L Potassium Level 3.7 3.5-5.1 mmol/L Chloride Level 101 98-107 mmol/L Carbon Dioxide Level 28 20-31 mmol/L Anion Gap 10 5-15 Blood Urea Nitrogen 13 9-23 mg/dL Creatinine 1.24 0.700-1.30 mg/dL Glomerular Filtration Rate Calc 65 >90 mL/min BUN/Creatinine Ratio 10.5 10.0-20.0 Serum Glucose 113 H 74-106 mg/dL Calcium Level 9.5 8.7-10.4 mg/dL D-Dimer, Quantitative 0.23 0.0-0.49 mg/L FEU Lactic Acid Level 0.9 0.4-2.0 mmol/L C-Reactive Protein High Sensitivity 0.16 <1.0 mg/dL Thyroid Stimulating Hormone (TSH) 0.68 0.55-4.78 uIU/mL Total Bilirubin 0.6 0.2-1.0 mg/dL Aspartate Amino Transferase (AST) 25 13-40 U/L Alanine Aminotransferase (ALT) 21 7-40 U/L Alkaline Phosphatase 86 46-116 U/L B-Type Natriuretic Peptide 61.85 0-100 pg/mL Total Protein 6.6 5.7-8.2 g/dL Albumin 4.3 3.2-4.8 g/dL Troponin I High Sensitivity 3 L </=54 ng/L Assessment Stable angina rule out progressive coronary artery disease Coronary artery disease status post PTCA x2 TRACY (on Aspirin and Plavix) History myocardial infarction Hypertension Dyslipidemia Chronic pain syndrome Medical noncompliance/sub-optimal medical therapy Obesity Plan/Recommendation (Dr. García) Given multiple admissions for chest pain syndrome and a cardiac catheterization revealing moderate in-stent restenosis of the left circumflex artery and the ostial diagonal branch on 08/30/2023, the patient has been scheduled for a coronary angiogram at first available to rule out progressive coronary artery disease and/or worsening in-stent restenosis. A transthoracic echocardiogram revealed an LVEF of 55-60% and no gross wall motion abnormality. In the meantime, continue single-antiplatelet therapy and lipid lowering agent. Monitor ECG changes and notify. Continue chest pain protocol. Strongly counseled on medical compliance and regular follow-ups with a primary grain receiver. Further orders per clinical course. Thank you for allowing us to participate in this patient's care. Please call if you have any questions or concerns. This medical document was created using an electronic medical record system with voice recognition software and computerized dictation system. Although this document has been carefully reviewed, there might still be some phonetic and typographical errors. Occasional wrong-word or ``sound-alike substitutions may have occurred due to the inherent limitations of voice recognition software. These areas are purely typographical due to imperfections of the software programs and do not reflect any compromise in the patient's medical care. Please read the chart carefully and recognize, using context, where these substitutions have occurred. Plan discussed with: Patient, Other NYHA Physical activity limitations: NA Date of Service: Nov 27, 2024 Billing Provider: [facility] Common Codes: [id number] INP/OBS CARE (High) ITA GARCÍA MD 11/27/24 1837: Family History: Cardiovascular disease G8 MOTHER, G8 FATHER, Allergies: Coded Allergies: Onion (Verified Allergy, Mild, 08/19/24) ITCHING, HIVES No Known Drug Allergy (Verified Allergy, Unknown, 08/02/23) Uncoded Allergies: HAYNES PEPPERS (Allergy, Mild, 08/19/24) ITCHING, HIVES PEACHES (Allergy, Mild, 08/19/24) HIVES, ITCHING Home Meds Active Scripts Lisinopril (Lisinopril) 20 Mg Tab, 1 TAB PO DAILY for 20 Days, #20 TAB 5 Refills Prov:ROB PAGE NP 10/27/24 Hydrocodone-Acetaminophen (Hydrocodone Bitartrate/AC 5-325 mg) 1 Tab Tab, 1 TAB PO Q8HP PRN for 5 Days, #15 TAB Prov:ROB PAGE NP 10/27/24 Lidocaine HCl (Aspercreme/Lidocaine) 4 % Cre, 4 % EX BID, #1 CRE apply to anterior chest/ribs for sharp pain Prov:ANIYAH PENNINGTON MD 08/21/24 Pantoprazole Sodium Sesquihydr (Pantoprazole Sodium) 40 Mg Tab, 40 MG PO DAILY, #30 TAB Prov:ANIYAH PENNINGTON MD 08/21/24 Albuterol Sulfate (Albuterol Sulfate Hfa) 108 Mcg/Act Aer, 108 MCG IN TID PRN, #1 AER Prov:SHAHNAZ BERNARD 06/20/24 Ibuprofen Micronized (Ibuprofen) 800 Mg Tab, 800 MG PO TID PRN, #30 TAB Prov:SHAHNAZ BERNARD 06/20/24 Allopurinol (ZYLOPRIM TABLET) 300 Mg Tb, 1 TAB PO DAILY, #30 TAB 5 Refills Prov:CRISTINO SOMMER MD 04/24/24 Clopidogrel Bisulfate (Plavix) 75 Mg Tab, 1 TAB PO DAILY, #90 TAB 1 Refill Prov:CRISTINO SOMMER MD 04/24/24 Atorvastatin Calcium (Lipitor) 20 Mg Tab, 1 TAB PO DAILY, #90 TAB 1 Refill Prov:CRISTINO SOMMER MD 04/24/24 Metoprolol Tartrate (Metoprolol Tartrate) 25 Mg Tab, 1 TAB PO BID, #180 TAB 1 Refill Prov:CRISTINO SOMMER MD 04/24/24 Lisinopril (Lisinopril) 20 Mg Tab, 1 TAB PO DAILY, #30 TAB 5 Refills Prov:CRISTINO SOMMER MD 04/24/24 Hydrocodone-Acetaminophen (Hydrocodone Bitartrate/AC 5-325 mg) 1 Tab Tab, 1 TAB PO QID PRN, #30 TAB Prov:CRISTINO SOMMER MD 04/24/24 Colchicine (Colchicine) 0.6 Mg Cap, 0.6 MG PO BID, #30 CAP Prov:CRISTINO SOMMER MD 04/24/24 Aspirin (Aspirin Adult Low Dose) 81 Mg Tab, 81 MG PO DAILY, #90 TAB Prov:CRISTINO SOMMER MD 04/24/24 Ranolazine (Ranolazine ER) 500 Mg Tab, 500 MG PO BID for 30 Days, #60 TAB Prov:ROB PAGE RENTAL SALES ASSOCIATE 10/01/23 Isosorbide Mononitrate (ISMO TABLET) 20 Mg Tb, 20 MG PO BID for 30 Days, #60 TAB Prov:EMERY APARICIO 09/15/23 Acetaminophen (Acetaminophen) 500 Mg Tab, 500 MG PO QIDP for 30 Days, #120 TAB 0 Refills Prov:KAYLEE FERNANDEZ RENTAL SALES ASSOCIATE 08/11/23 Reported Medications Carvedilol (Carvedilol) 12.5 Mg Tab, 1 TAB PO BID for 30 Days, #60 04/24/24 Fluticasone Propionate (Nasal) (Fluticasone Propionate Na) 50 Mcg/Act Spr, 1 SPRAY EACHNOSTRI BID PRN for 60 Days, #16 04/24/24 Ergocalciferol (Vitamin D (Ergocalciferol) 50,000 Unit Cap, 1 CAP PO QWEEKLY for 14 Days, #2 04/24/24 Hctz (Hydrochlorothiazide) 25 Mg Tab, 1 TAB PO DAILY 04/22/24 Simvastatin (Simvastatin) 40 Mg Tab, 1 TAB PO DAILY 08/30/23 Nabumetone (Nabumetone) 500 Mg Tab, 1 TAB PO BID PRN 08/30/23 Clopidogrel Bisulfate (CLOPIDOGREL) 75 Mg Tab, 1 TAB PO DAILY 08/28/23 Plan/Recommendation agree with RENTAL SALES ASSOCIATE assessment and plan [facility] Nov 27, 2024 08:41 ITA GARCÍA MD Nov 27, 2024 18:37
[2024-11-27] MEDS: IODIXANOL 320MG/ML 100ML BTL IV ONE ×2 (10:24→11:30)
[2024-11-27] MEDS: fentaNYL CITRATE 100 MCG/2 ML VL ONE (11:01)
[2024-11-27] MEDS: VERAPAMIL 2.5MG/ML INJ 2ML VIAL IV ONE (11:01)
[2024-11-27] MEDS: LIDOCAINE 2%HCL (LOCAL ANESTH.) INJ 20ML MDV ONE ×2 (11:02→11:05)
[2024-11-27] MEDS: MIDAZOLAM HCL 2MG/2ML 2ml VIAL (1mg/ml) ONE (11:02)
[2024-11-27] MEDS: HEPARIN SODIUM (PORCINE) 5000 UNITS/ML 1ML VIAL ONE (11:02)
[2024-11-27] MEDS: ANGIOMAX 250 MG VIAL IV ONE (11:24)
[2024-11-27] MEDS: SODIUM CHL 0.9% 50 ML ONE (11:24)
[2024-11-27] MEDS: CLOPIDOGREL BISULFATE 75 MG TAB ONE (11:42)
--- NOTE | 2024-11-27 11:52 | DVHOP2 ---
Operative Report Operative Report CARDIAC EDITOR IN CHIEF PROCEDURE REPORT [place], [place] Date of Service: 11/27/24 Marine Oiler: Ita García MD PROCEDURES PERFORMED: Coronary angiogram, left heart catheterization, conscious sedation administration and supervision, less than 15 minutes; fluoroscopy use and interpretation. sedation 15-30 mins, PTCA 1 v essel, IVL shockwave lithotroipsy PREOPERATIVE DIAGNOSES: NSTEMI ,hx of CAD, hx of PCI, ISR POSTOP DIAGNOSIS: cad DESCRIPTION OF PROCEDURE: The patient or appropriate family signed informed consent understanding the risks, benefits and alternatives of the procedure, they wished to proceed. The patient was brought to the cardiac airport maintenance laborer in [place]p.[place] state. The patient was prepped in a sterile fashion. Sedation was used per cardiac cath protocol. I administered 2 mL of 2% lidocaine to the right wrist. With an antegrade front wall puncture. I cannulated the right radial artery and placed a 5 -[place] Glidesheath slender. Next, an intra-arterial spasmolytic was administered. Next, a -5F tiger, 6XB 3.5 guide and were used for coronary angiogram . At the completion of procedure, all guides and wires were removed, and there were no immediate complications. FINDINGS: RCA: Moderate vessel off the right sinus of Valsalva, there is no severe flow limiting stenosis. moderate diffuse plaque. unchanged from 2023. LEFT MAIN: Moderate size left main, it tri furcates into LAD and circumflex. and RAMUS RAMUS: patent prox stent, (this was called an LAD stent in 2023) it is not CIRCUMFLEX: Moderate caliber vessel coming off the left main . prox CX is patent. mid CX has 70-80% stenosis at bifurcation of OM wit ISR LAD: LAD is a moderate caliber vessel coming of the left main. prox and mid portion have diffuse moderate plaque. mid LAD has a focal 50% stenosis. D1 and d2 have diffuse high grade disease. INTERVENTION: We decided to proceed with coronary intervention. I started with a 6F ___XB 3.5_ Guide to intubate the _left main _. Angiomax bolus and gtt was started. Following this, I decided to wire using an .014 BMW across the culprit lesion with ease. At this time, we performed balloon angioplasty with a _2.5 x 12 mm balloon by shockwave medical IVL balloon up to __4__ ATMS over __15__ seconds with __10 pulses each for total of 40 pulses_ 4_ number of inflations. Following this, angio showed less than 20% stenosis and excellent flow. it was near the bifurcation and give his diffuse plaque we decided to complete the procedure. the patient tolerated the procedure well without any complications . KEVIN pre/post: 3./3 CONCLUSIONS: 1. sp IVL shockwave and PTCA of an 70-80% Circumflex stenosis with ISR PLAN: Aggressive risk factor modification and medical management for the patient. recommend PCSK9 inhibitor given diffuse disease DAPT x 1 year uninterrupted if symptoms recur, consider 6F XB 4 guide vs femoral access for angiogram ITA GARCÍA MD Nov 27, 2024 11:52
--- NOTE | 2024-11-27 12:24 | DVHPN2 ---
Progress Note Date Seen: Nov 27, 2024 Medical Necessity Reason Pt with a Central, PICC or Fol: No Subjective Patient reports: No new complaints Review of Systems: HEENT:Normal, CVS:Normal, RESPIRATORY:Normal, GI:Normal, :Normal, MSK:Normal, NEURO:Normal Objective vital signs Vital Sign Date Time Temp Pulse Resp B/P (MAP) Pulse Ox O2 Delivery O2 Flow Rate FiO2 11/27/24 08:56 97.7 61 16 128/70 (89) 99 97.7 11/27/24 08:24 Room Air* 0 21 Total Intake and Output 11/26/24 11/26/24 11/27/24 15:00 23:00 07:00 Intake Total 500 ml 300 ml Output Total 320 ml Balance 500 ml -20 ml medications Current Medications Medications Dose Ordered Sig/Siobhan Route Start Time Stop Time Status Last Admin Dose Admin Sodium Chloride 1,000 ml @ 60 mls/hr [id number] IV 11/25/24 16:30 11/27/24 02:50 60 MLS/HR Enoxaparin Sodium 40 mg DAILY SC 11/26/24 10:00 Acetaminophen 650 mg Q6HP PRN PO 11/25/24 16:30 Nitroglycerin 0.4 mg Q5MINP PRN SL 11/25/24 16:30 Morphine Sulfate 2 mg Q30M PRN IV 11/25/24 16:30 Aspirin 81 mg DAILY PO 11/26/24 10:00 11/26/24 10:17 81 MG Carvedilol 12.5 mg BID PO 11/25/24 22:00 11/26/24 10:17 12.5 MG Clopidogrel Bisulfate 75 mg DAILY PO 11/26/24 10:00 11/26/24 10:16 75 MG Ergocalciferol 50,000 unit QWEEKLY PO 11/25/24 16:45 Hydrochlorothiazide 25 mg DAILY PO 11/26/24 10:00 11/26/24 10:14 25 MG Isosorbide Mononitrate 20 mg BID PO 11/25/24 22:00 11/26/24 22:04 20 MG Lisinopril 20 mg DAILY PO 11/26/24 10:00 11/26/24 10:16 20 MG Pantoprazole Sodium 40 mg DAILY PO 11/26/24 10:00 11/26/24 10:13 40 MG Ranolazine 500 mg BID PO 11/25/24 22:00 11/26/24 22:04 500 MG Allopurinol 300 mg DAILY PO 11/26/24 10:00 11/26/24 10:15 300 MG Colchicine 0.6 mg BID PO 11/26/24 10:00 Morphine Sulfate 2 mg Q6HPRN PRN IV 11/25/24 19:00 11/27/24 06:13 2 MG Acetaminophen/ Hydrocodone Bitart 1 tab Q4HPRN PRN PO 11/26/24 18:15 11/27/24 08:15 1 TAB Atorvastatin Calcium 80 mg HS PO 11/27/24 22:00 Examination: GENERAL:Normal, HEENT:Normal, NECK:Normal, LUNGS:Normal, CVS:Normal, ABDOMEN:Normal, MSK:Normal, SKIN:Normal, NEURO:Normal, :Normal laboratory and microbiology Laboratory Tests 11/27/24 07:04 Test 11/27/24 07:04 Range/Units Serum Glucose 113 H 74-106 mg/dL Problem List/Assessment/Plan Problem List/Assessment/Plan #1 cad s/p angioplasty: cont meds #2 h/o cad/stents #3 obesity #4 htn #5 gout #6 hyperlipidemia #7 chronic pain advance care planning- full code- time spent 18 mins Plan discussed with: Other (rn) Date of Service: Nov 27, 2024 Billing Provider: CANELO RAMÍREZ MD Common Visit Codes: [id number] INP/OBS CARE(HIGH) Secondary Visit Codes: [id number] CARE PLAN 30 MINUTES CANELO RAMÍREZ MD Nov 27, 2024 12:24
[2024-11-27 14:06] LABS: INR 1.23 (0.9-1.15); Partial Thromboplastin Time 46.9 SEC (24.5-34.5); Prothrombin Time 12.8 sec (9.3-11.8)
[2024-11-27] MEDS: ATORVASTATIN 20 MG TAB PO SCH (21:33)
[2024-11-28] VITALS (8 sets, daily range): BP systolic 104–149; BP diastolic 62–87; PULSE 63–73; RESP 17–19; TEMP 97.2–98.6; O2SAT 93–100
--- NOTE | 2024-11-28 14:01 | DVHPN2 ---
Progress Note Date Seen: Nov 28, 2024 Medical Necessity Reason Pt with a Central, PICC or Fol: No Subjective Patient reports: No new complaints Review of Systems: HEENT:Normal, CVS:Normal, RESPIRATORY:Normal, GI:Normal, :Normal, MSK:Normal, NEURO:Normal Objective vital signs Vital Sign Date Time Temp Pulse Resp B/P (MAP) Pulse Ox O2 Delivery O2 Flow Rate FiO2 11/28/24 12:38 97.8 73 19 116/77 (90) 93 97.8 11/28/24 08:07 Nasal Cannula* 2 28 Total Intake and Output 11/27/24 11/27/24 11/28/24 15:00 23:00 07:00 Intake Total 1000 ml 300 ml Output Total 350 ml Balance 650 ml 300 ml medications Current Medications Medications Dose Ordered Sig/Siobhan Route Start Time Stop Time Status Last Admin Dose Admin Sodium Chloride 1,000 ml @ 60 mls/hr [id number] IV 11/25/24 16:30 11/27/24 18:22 60 MLS/HR Enoxaparin Sodium 40 mg DAILY SC 11/26/24 10:00 Acetaminophen 650 mg Q6HP PRN PO 11/25/24 16:30 Nitroglycerin 0.4 mg Q5MINP PRN SL 11/25/24 16:30 Morphine Sulfate 2 mg Q30M PRN IV 11/25/24 16:30 Aspirin 81 mg DAILY PO 11/26/24 10:00 11/28/24 08:31 81 MG Carvedilol 12.5 mg BID PO 11/25/24 22:00 11/28/24 08:31 12.5 MG Clopidogrel Bisulfate 75 mg DAILY PO 11/26/24 10:00 11/28/24 08:33 75 MG Ergocalciferol 50,000 unit QWEEKLY PO 11/25/24 16:45 Hydrochlorothiazide 25 mg DAILY PO 11/26/24 10:00 11/28/24 08:33 25 MG Isosorbide Mononitrate 20 mg BID PO 11/25/24 22:00 11/28/24 08:33 20 MG Lisinopril 20 mg DAILY PO 11/26/24 10:00 11/28/24 08:32 20 MG Pantoprazole Sodium 40 mg DAILY PO 11/26/24 10:00 11/28/24 08:32 40 MG Ranolazine 500 mg BID PO 11/25/24 22:00 11/28/24 08:32 500 MG Allopurinol 300 mg DAILY PO 11/26/24 10:00 11/28/24 08:32 300 MG Colchicine 0.6 mg BID PO 11/26/24 10:00 11/28/24 08:33 0.6 MG Morphine Sulfate 2 mg Q6HPRN PRN IV 11/25/24 19:00 11/28/24 08:30 2 MG Acetaminophen/ Hydrocodone Bitart 1 tab Q4HPRN PRN PO 11/26/24 18:15 11/28/24 10:51 1 TAB Atorvastatin Calcium 80 mg HS PO 11/27/24 22:00 11/27/24 21:33 80 MG Examination: GENERAL:Normal, HEENT:Normal, NECK:Normal, LUNGS:Normal, CVS:Normal, ABDOMEN:Normal, MSK:Normal, SKIN:Normal, NEURO:Normal, :Normal laboratory and microbiology Laboratory Tests 11/27/24 07:04 Test 11/27/24 07:04 Range/Units Serum Glucose 113 H 74-106 mg/dL Problem List/Assessment/Plan Problem List/Assessment/Plan #1 cad s/p angioplasty: cont meds #2 h/o cad/stents #3 obesity #4 htn #5 gout #6 hyperlipidemia #7 chronic pain advance care planning- full code- time spent 18 mins Plan discussed with: Patient My Orders My Orders Orders - CANELO RAMÍREZ MD Procedure Category Date Status Time Ketorolac Injection PHA 11/28/24 Verified (Toradol Injection) 14:00 Basic Metabolic Panel LAB 11/29/24 Verified 06:00 Chest Portable XY 11/28/24 Verified 13:58 Date of Service: Nov 28, 2024 Billing Provider: CANELO RAMÍREZ MD Common Visit Codes: [id number] INP/OBS CARE(HIGH) CANELO RAMÍREZ MD Nov 28, 2024 14:01
[2024-11-28] MEDS: KETOROLAC TROMETH 30 MG/ML 1ML VIAL IV ONE (14:39)
--- NOTE | 2024-11-28 14:40 | DVHPN2 ---
Consult Progress Note Date Seen: Nov 28, 2024 Subjective Review of Systems: CVS:Normal, RESPIRATORY:Normal, NEURO:Normal Objective vital signs Vital Sign Date Time Temp Pulse Resp B/P (MAP) Pulse Ox O2 Delivery O2 Flow Rate FiO2 11/28/24 12:38 97.8 73 19 116/77 (90) 93 97.8 11/28/24 08:07 Nasal Cannula* 2 28 Total Intake and Output 11/27/24 11/27/24 11/28/24 14:59 22:59 06:59 Intake Total 1000 ml 300 ml Output Total 350 ml Balance 650 ml 300 ml medications Current Medications Medications Dose Ordered Sig/Siobhan Route Start Time Stop Time Status Last Admin Dose Admin Acetaminophen 650 mg Q6HP PRN PO 11/25/24 16:30 Nitroglycerin 0.4 mg Q5MINP PRN SL 11/25/24 16:30 Morphine Sulfate 2 mg Q30M PRN IV 11/25/24 16:30 Aspirin 81 mg DAILY PO 11/26/24 10:00 11/28/24 08:31 81 MG Carvedilol 12.5 mg BID PO 11/25/24 22:00 11/28/24 08:31 12.5 MG Clopidogrel Bisulfate 75 mg DAILY PO 11/26/24 10:00 11/28/24 08:33 75 MG Ergocalciferol 50,000 unit QWEEKLY PO 11/25/24 16:45 Hydrochlorothiazide 25 mg DAILY PO 11/26/24 10:00 11/28/24 08:33 25 MG Isosorbide Mononitrate 20 mg BID PO 11/25/24 22:00 11/28/24 08:33 20 MG Lisinopril 20 mg DAILY PO 11/26/24 10:00 11/28/24 08:32 20 MG Pantoprazole Sodium 40 mg DAILY PO 11/26/24 10:00 11/28/24 08:32 40 MG Ranolazine 500 mg BID PO 11/25/24 22:00 11/28/24 08:32 500 MG Allopurinol 300 mg DAILY PO 11/26/24 10:00 11/28/24 08:32 300 MG Colchicine 0.6 mg BID PO 11/26/24 10:00 11/28/24 08:33 0.6 MG Morphine Sulfate 2 mg Q6HPRN PRN IV 11/25/24 19:00 11/28/24 08:30 2 MG Acetaminophen/ Hydrocodone Bitart 1 tab Q4HPRN PRN PO 11/26/24 18:15 11/28/24 10:51 1 TAB Atorvastatin Calcium 80 mg HS PO 11/27/24 22:00 11/27/24 21:33 80 MG Examination: LUNGS:Normal, CVS:Normal, NEURO:Normal laboratory and microbiology Laboratory Tests 11/27/24 07:04 Test 11/27/24 07:04 Range/Units Serum Glucose 113 H 74-106 mg/dL Problem List/Assessment/Plan Problem List/Assessment/Plan Stable angina status post PTCA of the LCX stenosis with ISR Coronary artery disease status post PTCA x2 TRACY (on Aspirin and Plavix) History myocardial infarction Hypertension Dyslipidemia Chronic pain syndrome Medical noncompliance/sub-optimal medical therapy Obesity Plan/Recommendation (Dr. Cenra) Patient underwent a successful cardiac catheterization and coronary angiogram status post IVL shockwave and PTCA of a 70-80% left circumflex stenosis with in- stent restenosis. A transthoracic echocardiogram revealed an LVEF of 55-60% and no gross wall motion abnormality. Continue dual-antiplatelet therapy, lipid lowering agent, and beta-sophia. Follow up with the primary rn first assistant within 1-2 weeks. Strongly counseled on medical compliance and regular follow- ups. There is no further cardiac workup indicated at this time. Kindly call if in need to re-consult. Thank you for allowing us to participate in this patient's care. This medical document was created using an electronic medical record system with voice recognition software and computerized dictation system. Although this document has been carefully reviewed, there might still be some phonetic and typographical errors. Occasional wrong-word or ``sound-alike substitutions may have occurred due to the inherent limitations of voice recognition software. These areas are purely typographical due to imperfections of the software programs and do not reflect any compromise in the patient's medical care. Please read the chart carefully and recognize, using context, where these substitutions have occurred. Plan discussed with: Patient, Other Date of Service: Nov 28, 2024 Billing Provider: [facility] Common Codes: [id number](High [facility] Nov 28, 2024 14:40
--- NOTE | 2024-11-28 14:51 | DVH ---
INDICATION: cad TECHNIQUE: Frontal view of the chest. COMPARISON: XY CHEST PORTABLE on DOS: 11/25/24, XY CHEST PORTABLE on DOS: 10/26/24, XY CHEST PORTABLE on DOS: 08/19/24, XY CHEST XRAY 1 VIEW on DOS: 06/20/24, XY CHEST PORTABLE on DOS: 04/22/24 FINDINGS: . Cardiomegaly. There is no evidence of pleural disease. The lungs are clear. The bony structures of the chest are intact without fracture. IMPRESSION: 1. Cardiomegaly. No acute disease
[2024-11-28 15:38] LABS: Urine Budding Yeast OCCASIONAL /hpf (None Seen); Urine Protein, UAD 1+ (Negative)
[2024-11-28 15:57] LABS: Amphetamine Screen, Urine Neg (NEGATIVE); Barbiturate Scree,Urine Neg (NEGATIVE); Benzodiazephine Screen, Urine Pos (NEGATIVE); Cannabinoid Screen, Urine Neg (NEGATIVE); Cocaine Screen, Urine Neg (NEGATIVE); Opiate Scree,Urine Pos (NEGATIVE); Phencyclidine Screen, Urine Neg (NEGATIVE)
[2024-11-29 01:00] VITALS: BP 121/71; PULSE 72; RESP 17; TEMP 97; O2SAT 95
[2024-11-29 05:00] VITALS: BP 144/99; PULSE 87; RESP 17; TEMP 98.5; O2SAT 98
--- NOTE | 2024-11-29 12:46 | DVHDS ---
DATE OF DISCHARGE: 11/29/2024 The patient left against medical advice, on 11/29/2024. HISTORY OF PRESENT ILLNESS: The patient is a 64-year-old gentleman who is admitted with complaints of chest pain and a history of coronary artery disease, hypertension and hyperlipidemia. He also has chronic pain. HOSPITAL COURSE: The patient was seen in Cardiology consult by Dr. Cerna. The patient underwent coronary angiography with PTCA and shockwave of 70%-80% circumflex stenosis. The patient's troponin levels are negative for acute UT. The patient left against medical advice/eloped on 11/29/2024. FINAL DIAGNOSES: * Coronary artery disease, status post angioplasty. * History of coronary artery disease with stents. * Obesity. * Hypertension. * Gout. * Hyperlipidemia. * Chronic pain with likely narcotic dependence. * Noncompliance. MD ANA Duff/BRANDON TID: [id number] RECEIPT: [id number]
== END 2024-11-29 06:48 | disposition left against medical advice (07) | DRG 175 ==
LOC: EDBD 12:04 → ER 12:04 → OVERFLOW 16:30 → WEST WING 22:44 → TELE-WESTW 11-26 17:54
PROVIDERS: ADMIT Internal Medicine; ATTEND Internal Medicine
PROC: 4A023N7 Measurement of Cardiac Sampling and Pressure, Left Heart, Percutaneous Approach (ICD-10-PCS; principal; 2024-11-27)
PROC: 02F03ZZ Fragmentation in Coronary Artery, One Artery, Percutaneous Approach (ICD-10-PCS; 2024-11-27)
PROC: B211YZZ Fluoroscopy of Multiple Coronary Arteries using Other Contrast (ICD-10-PCS; 2024-11-27)
DX: T82.855A Stenosis of coronary artery stent, initial encounter (principal); E66.9 Obesity, unspecified; I25.118 Atherosclerotic heart disease of native coronary artery with other forms of angina pectoris; E78.5 Hyperlipidemia, unspecified; Z53.29 Procedure and treatment not carried out because of patient's decision for other reasons; I10 Essential (primary) hypertension; T40.605A Adverse effect of unspecified narcotics, initial encounter; F11.20 Opioid dependence, uncomplicated; G89.4 Chronic pain syndrome; M10.9 Gout, unspecified; Z91.018 Allergy to other foods; Z79.82 Long term (current) use of aspirin; I25.2 Old myocardial infarction; Z68.34 Body mass index [BMI] 34.0-34.9, adult; Z79.02 Long term (current) use of antithrombotics/antiplatelets; Z82.49 Family history of ischemic heart disease and other diseases of the circulatory system; Z91.199 Patient's noncompliance with other medical treatment and regimen due to unspecified reason; Y84.8 Other medical procedures as the cause of abnormal reaction of the patient, or of later complication, without mention of misadventure at the time of the procedure; Y92.89 Other specified places as the place of occurrence of the external cause
CPT/HCPCS: 36415; 71045; 80048; 80053; 80307; 81001; 83605; 83880; 84443; 84484; 85025; 85379; 85610; 85652; 85730; 86141; 92972; 93005; 93458; 99152; G0378; J1885; J2250; Q9967